=== PATIENT | female | born 1995 | race African-American/Black ===

== ENCOUNTER 2022-07-24 17:41 | Emergency (ER) | payer OTHER, SELFPAY ==
[2022-07-24 18:03] VITALS: BP 124/87; PULSE 94; RESP 16; TEMP 36.5; O2SAT 100
--- NOTE | 2022-07-24 18:41 | ED.URI ---
HPI - URI/Sore Throat General Chief Complaint: Upper Respiratory Infection Stated Complaint: ear pain, congestion, sore throat Time Seen by Provider: 07/24/22 18:41 Source: patient and RN notes reviewed Mode of arrival: ambulatory Limitations: no limitations History of Present Illness HPI Narrative: 27-year-old female presented for complaint of sinus pressure, congestion and nonproductive cough for 3 days. Endorses her sore throat that she had at onset is better, continues to have ear pain and headache. She denies sick contacts. She has been taking DayQuil, Robitussin and Mucinex for symptoms. She denies shortness of breath, nausea, vomiting, fevers or chills. MD elicited complaint: cough Related Data Home Medications Medication Instructions Recorded Confirmed No Home Medications 07/24/22 07/24/22 Allergies Allergy/AdvReac Type Severity Reaction Status Date / Time No Known Allergies Allergy Unverified 07/24/22 18:08 Review of Systems Review of Systems: CONSTITUTIONAL: denies malaise, chills, sweats, fever EYES: Denies visual changes, redness, or discharge ENT: Reports rhinorrhea, congestion, sinus pain, otalgia CARDIOVASCULAR: Denies chest pain, palpitations, edema RESPIRATORY: Reports cough, post nasal drainage. Denies dyspnea MUSCULOSKELETAL: denies myalgia Exam Narrative: GENERAL: well-appearing, nontoxic no acute distress. EYES: conjunctivae clear ENT: Mucous membranes moist. TM pearly amezcua with dull light reflex bilaterally; no tragal tenderness. Oropharynx erythematous without lesions or exudate, no drooling, no hoarseness, no trismus, uvula midline. CHEST: Clear to auscultation, breath sounds equal. No wheezing, rhonchi, rales, or stridor. HEART: Regular rate and rhythm. No murmur heard. SKIN: Warm, dry, no rash. NEURO: Alert and oriented x3. PSYCH: Normal mood and affect Course Course Emergency Course: Patient is aware of diagnosis, understands and agrees to treatment plan. Anticipatory guidance given. Patient agrees to follow-up as directed and is aware of reasons to seek care at the emergency department. Portions of this record may have been created with voice recognition software Level of Care: Express Care Visit Vital Signs Vital signs: Vital Signs Temperature 97.7 F 07/24/22 18:03 Pulse Rate 94 07/24/22 18:03 Respiratory Rate 16 07/24/22 18:03 Blood Pressure 124/87 07/24/22 18:03 Pulse Oximetry 100 07/24/22 18:03 Temperature 97.7 F 07/24/22 18:03 Pulse Rate 94 07/24/22 18:03 Respiratory Rate 16 07/24/22 18:03 Blood Pressure 124/87 07/24/22 18:03 Pulse Oximetry 100 07/24/22 18:03 reviewed MDM - URI/Sore Throat MDM Narrative Medical decision making narrative: Negative covid reviewed with pt. Advised supportive measures for URI and signs/symptoms to go to the ER. Pt is appropriate for outpt treatment and f/u. Differential Diagnosis Differential diagnosis: Likely upper respiratory infection, sinusitis and viral infection Lab Data Labs: Lab Results 07/24/22 Range/Units 18:18 POC SARS CoV-2 Ag Negative (Negative) Discharge Plan Discharge Clinical Impression: Upper respiratory infection Patient Disposition: Home, Self-Care Condition: Stable Instructions: Upper Respiratory Infection (ED) Additional Instructions: Recommend Flonase spray or Afrin (for 3 days) and Zyrtec (or Claritin/Yessica) over the counter Cough syrup may cause drowsiness; avoid driving or take it at night time. Tylenol 1000mg every 8 hours as needed for pain Symptomatic treatment includes: rest, fluids, and increase humidity of the air at home. Follow up with your primary care provider as needed in 1 week Go to the ER for worsening symptoms or concerns Prescriptions: No Action No Home Medications Follow-up/Referrals: UNKNOWN,DOCTOR [Primary Care Provider] - Time of Disposition: 18:49
== END 2022-07-24 18:53 | disposition home or self-care (01) ==
PROVIDERS: Emergency Provider Nurse Practitioner Family
DX: J06.9 Acute upper respiratory infection, unspecified (principal); Z20.822 Contact with and (suspected) exposure to COVID-19
CPT/HCPCS: 87426; 99203; C9803; G0463

== ENCOUNTER 2023-05-21 17:38 | Emergency (ER) | payer OTHER, SELFPAY ==
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
[2023-05-21 17:42] VITALS: BP 132/67; PULSE 96; RESP 16; TEMP 36.4; O2SAT 100
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
[2023-05-21] MEDS: ACETAMINOPHEN 500 MG TABLET 1000 MG PO (18:16)
[2023-05-21] MEDS: CYCLOBENZAPRINE HCL 10 MG TABLET PO (18:16)
[2023-05-21] MEDS: IBUPROFEN 600 MG TABLET PO (18:16)
== END 2023-05-21 19:31 | disposition home or self-care (01) ==
PROVIDERS: Emergency Provider Physician Assistant
DX: M62.830 Muscle spasm of back (principal); Z79.1 Long term (current) use of non-steroidal anti-inflammatories (NSAID); V43.53XA Car driver injured in collision with pick-up truck in traffic accident, initial encounter; Y92.411 Interstate highway as the place of occurrence of the external cause
CPT/HCPCS: 70450; 81025; 99284; A9270

== ENCOUNTER 2025-05-29 23:45 | Emergency (ER) | payer BC, SELFPAY ==
--- NOTE | ~2025-05-29 | XR_ITS ---
CHEST RADIOGRAPH CLINICAL HISTORY: sob . COMPARISON: None available TECHNIQUE: Single portable view of the chest. FINDINGS The cardiomediastinal silhouette is unremarkable. The lungs are clear. IMPRESSION: No focal infiltrate or effusion. Reviewed, dictated and finalized at location A.
--- OUTSIDE RECORDS SUMMARY | 2025-05-29 23:47 | XMS_ITS | Encounter Summary ---
Author Organization [facility] Healthcare Address [address] [place] [address] Care Team Providers Care Shot Polisher And Inspector Name Role Phone No, Physician Unavailable Mylene Hanna DO Primary Care Provider + Encounter Details Date Type Department Care Team (Late st Contact Info) Description 04/30/2025 Results Follow-Up [facility] [address] [facility] [address] [place] [id number] Luz Vivar MD [facility] [facility] [address] [place] [facility] [address] [place], [place] [id number] Group B streptococcal culture Vaginal/Rectal Social History Tobacco Use Types Packs/Day Years Used Date Smoking Tobacco: Never [facility] [employer] Answer Date Recorded In the past 12 months has [employer] electric, gas, oil, or water company threatened to shut off services in your home? No 04/28/2025 Social Connection and Isolat ion Panel [NHANES] Answer Date Recorded In a typical week, how many times do you talk on the phone with family, friends, or neighbors? More than three times a week 04/28/2025 How often do you get togethe r with friends or relatives? Three times a week 04/28/2025 How often do you attend chur ch or amish services? Never 04/28/2025 Do you belong to any clubs o r organizations such as muslim groups, unions, fraternal or athletic groups, or school groups? No 04/28/2025 How often do you attend meet ings of the clubs or organizations you belong to? Never 04/28/2025 Are you , , di vorced, , never , or living with a partner? 04/28/2025 Overall Financial Resource Strain (CARDIA) Answe r Date Recorded How hard is it for you to pa y for the very basics like food, housing, medical care, and heating? Not hard at all 04/28/2025 Hunger Vital Sign Answer Date Recorded Within the past 12 months, y ou worried that your food would run out before you got the money to buy more. Never true 04/28/20 25 Within the past 12 months, t he food you bought just didn't last and you didn't have money to get more. Never true 04/28/2025 PRAPARE - Transportation Answer Date Re corded In the past 12 months, has l ack of transportation kept you from medical appointments or from getting medications? No 01/2025 In the past 12 months, has l ack of transportation kept you from meetings, work, or from getting things needed for daily living? No 04/28/2025 Saline Depression Scale Answer Date Recorded Saline Depression Scale Total 2 03/30/2025 The thought of harming myself has occurred to me . Never 03/30/2025 Housing Stability Vital Sign Answer Karri e Recorded In the last 12 months, was t here a time when you were not able to pay the mortgage or rent on time? No 04/28/2025 In the past 12 months, how m any times have you moved where you were living? 0 04/28/2025 At any time in the past 12 m [facility], were you homeless or living in a skilled nursing (including now)? No 04/28/2025 Personal Safety Answer Date Recorded Have you ever been in or are you currently in a harmful physical or emotional relationship or is someone making you feel afraid or unsafe? 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
--- OUTSIDE RECORDS SUMMARY | 2025-05-29 23:47 | XMS_ITS | Referral Summary ---
Author Organization [address] Address [address] [place] [phone] Care Team Providers Care Segmental Wall Installer Name Role Phone No, Physician Unavailable Mylene Hanna DO Primary Care Provider + Encounters Date Type Department Care Team Description 05/26/2025 2:01 PM CDT - 05/29/2025 7:05 PM CDT Hospital Encounter [address] [phone] Marielle Wakefield MD Normal labor (Primary Dx); Obesity in ; care insufficient, unspecified trimester; Maternal varicella, non-immune Discharge Disposition: Discharge to home or self care 05/27/2025 10:03 AM CDT Anesthesia Event [address] [phone] Priti Girard MD Spreen, Nancy J., CRNA 05/18/2025 10:00 AM CDT Office Visit [address] [place] [phone] Stefanie Bai, DRAFTER SEISMOGRAPH WEOB: pt of [place] (Primary Dx) 05/11/2025 10:30 AM CDT Office Visit [address] [place] [phone] Luz Vivar MD WEOB: pt of [place] (Primary Dx); WEOB: BMI 34 at IOB; 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; WEOB: Varicella nonimmune 04/30/2025 Results Follow-Up [address] [phone] Luz Vivar MD Group B streptococcal culture Vaginal/Rectal 04/28/2025 9:45 AM CDT Ancillary Procedure [address] [place] [address] WEOB: BMI 34 at IOB 04/27/2025 1:18 PM CDT - 04/28/2025 8:19 PM CDT Hospital Encounter [address] [phone] Luz Vivar MD Threatened labor, third trimester (Primary Dx) Discharge Disposition: Discharge to home or self care 04/27/2025 4:50 PM CDT Ancillary Procedure [address] [phone] 04/27/2025 11:27 AM CDT - 04/27/2025 11:59 PM CDT Hospital Encounter [address] [address] WEOB: pt of [place] Discharge Disposition: Discharge to home or self care 04/27/2025 10:30 AM CDT Office Visit [address] [phone] Luz Vivar MD WEOB: pt of [place] (Primary Dx); WEOB: BMI 34 at IOB; 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; WEOB: Varicella nonimmune 04/19/2025 4:39 PM CDT - 04/19/2025 6:00 PM CDT Hospital Encounter [address] [phone] Charisse Eisenberg MD Discharge Disposition: Discharge to home or self care 04/[facility] [address] [place] [place] [phone] Luz Vivar MD 04/14/2025 10:00 AM CDT [facility] [address] [place] [place] [phone] Stefanie Bai, DRAFTER SEISMOGRAPH WEOB: pt of [place] (Primary Dx) 04/03/2025 Results Follow-Up [facility] [address] [place] [place] [phone] Luz Vivar MD Ob Follow Up 04/01/2025 2:30 PM CDT Ancillary Procedure [facility] at [address] [phone] Obesity in 03/30/2025 4:00 PM CDT [facility] [address] [place] [place] [phone] Luz Vivar MD WEOB: pt of [place] (Primary Dx); WEOB: BMI 34 at IOB; 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; WEOB: Varicella nonimmune 03/27/2025 Telephone [facility] [address] [place] [phone] Kaela Oneal RN 03/25/2025 Orders Only [facility] [address] [place] [phone] Luz Vivar MD Obesity in (Primary Dx) 03/25/2025 Orders Only [facility] [address] [place] [phone] Luz Vivar MD 03/18/2025 Results Follow-Up [facility] [address] [place] [phone] Stefanie Bai, DRAFTER SEISMOGRAPH Urine culture Urine, clean voided 03/16/2025 11:45 AM CDT - 03/16/2025 11:59 PM CDT Hospital Encounter [facility] [address] [place] [address] Gross hematuria; care, first in third trimester Discharge Disposition: Discharge to home or self care 03/16/2025 10:30 AM CDT Office Visit [facility] [address] [phone] Stefanie Bai, DRAFTER SEISMOGRAPH WEOB: pt of [place] (Primary Dx); 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; WEOB: Varicella nonimmune; WEOB: BMI 34 at IOB; Gross hematuria; care, first in third trimester from Last 3 Months Allergies No known active allergies Medications 35-[id number] 6-dha 30 mg iron-1mg -200 mg capsule Take by mouth daily Active acetaminophen 500 mg capsuleIndicati ons:Pain Take 2 capsules (1,000 mg total) by mouth every 6 (six) hours 6 tablet 5 Active docusate sodium (COLACE) 100 mg capsuleIndicati ons:constipatio n,Stool Softener Take 1 capsule (100 mg total) by mouth 2 (two) times a day 20 capsule 5 Active ibuprofen (ADVIL,MOTRIN) 600 mg tabletIndicatio ns:Cramps Take 1 tablet (600 mg total) by mouth every 6 (six) hours as needed for pain 30 tablet 5 Active polyethylene glycol (MIRALAX) 17 gram/dose bulk powderIndicatio ns:constipation Take 17 g by mouth daily 510 g 5 Active aspirin 81 mg enteric coated tablet Take 1 tablet (81 mg total) by mouth daily 30 tablet 11 4 05/29/20 25 Discontinu ed(Stop Taking at Discharge) Active Problems Problem Noted Date Diagnosed Date (spontaneous vaginal delivery) 05/29/2025 Normal labor 05/27/2025 care following vaginal delivery 05/27 Overview (05/29/2025): # ID: Afebrile. No signs/symptoms of infection. #VZV NI: Recc PP varivax # Heme: QBL 243 mL. Hemodynamically stable. # CV/Pulm: Vital signs stable, within normal limits. # GI/: Tolerating PO. Voiding spontaneously. # Pain: Controlled with above regimen. # MOC: Undecided s/p counseling. # MOF: . Urine drug screen not indicated. Patient informed of results: N/A. # Post DVT prophylaxis: The patient has the following MAJOR risk factors none and the following MINOR risk factors BMI 30-39. SCDs ordered for VTE prophylaxis. # Disposition: Follow up task not sent. Continue routine care. Supervision of wit h history of pre-term labor, unspecified trimester 05/26/2025 Overview (05/26/2025): Anabelle Grijalva is a 30 y.o. female at 38w4d who is dated by L=1 and is being admitted for labor. Admit to L&D: Labs: CBC and T&S pending. Labor augmentation with AROM and oxytocin . FWB: Continuous monitoring. tracing category I. ID: 3rd trimester HIV (>28 wga) negative on 04/27. GBS negative on 04/27. RPR on admission: pending. History of genital HSV or HSV 1/2 seropositivity: No. Membrane Status: intact. Indications for UDS: none. Verbal consent obtained for UDS: Not indicated. MOF: Plans to breastfeed. Urine drug screen not indicated. Patient informed of results: N/A. MOC: Undecided on contraception after counseling. Pain management: Desires epidural. Post DVT prophylaxis: The patient has the following MAJOR risk factors none and the following MINOR risk factors BMI 30-39. SCDs will be ordered for VTE prophylaxis . 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 Peds for del. Threatened labor, third trimester 2024 WEOB: BMI 34 at IOB 03/16/2025 Overview (03/30/2025): BMI: 34 at IOB S/p counseling. Plan [x] A1C/GTT wnl [x] Specialized anatomy ultrasound - wnl [] Serial growth ultrasounds q4 weeks starting at 24 weeks - ordered [x] Anesthesia consult in third trimester if BMI >/= 60 - not indicated [x] Weekly testing: not indicated 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 025 Overview (04/27/2025): FOP testing ordered 12/16/24 (Scooter Grijalva, [birth year]) - Partner also a carrier. 01/15/25: Genetic counselor referral completed, declined amniocentesis/ intervention. Plan: - Routine care. Alert peds at delivery. WEOB: Varicella nonimmune 11/24/2024 Overview (12/16/2024): For varivax. WEOB: pt of [place] 11/24/2024 Overview (05/11/2025): 1st Trimester: [x] Dating Criteria: L=1 (US 10/27/24 with HAI 06/05/25) [x] Labs: Lab Results Component Value Date ABORH O Positive 11/17/2024 IDCOOMB Negative 11/17/2024 [id number] Nonreactive 11/17/2024 LABRPR Nonreactive 11/17/2024 RUBELIGG Reactive 11/17/2024 HEPBSAG Nonreactive 11/17/2024 [x] Hgb electrophoresis: normal pattern [x] Pap: NILM (10/2024) [x] Urine Culture CIG [x] Aneuploidy screening: NIPT low risk [x] Carrier testing: SMA carrier (see separate problem) [x] ASA at 12 weeks (if indicated) - ordered 2nd Trimester: [x] Anatomy ultrasound (01/21/25): normal anatomy, normal growth [x] Placenta: anterior [x] CBC/1hr GTT/HIV/RPR at 24-28wks: Lab Results Component Value Date [id number] 154 (H) 02/16/2025 [id number] Nonreactive 02/16/2025 LABRPR Nonreactive 02/16/2025 [x] Rhogam (if Rh neg): not indicated [x] Childbirth classes discussed 3rd Trimester: [x] GBS: neg Counseling: [x] Flu Shot (Jul-January) given 10/20 [x] RSV Shot (32-36wks) - N/A [x] Tdap (27-36wks) 03/16 [x] Method of delivery: Anticipate vaginal delivery Immunizations Immunization Administration Dates Next Due Influenza, Trivalent, Preser vative Free, Intramuscular 10/20/2024 MMR 05/29/2025(Deferred: No longer n eeded) Tdap 03/16/2025 Varicella 05/29/2025 Social History Tobacco Use Types Packs/Day Years Used Date Smoking Tobacco: Never Tobacco Cessation:Counseling Given: Not Answered [facility] Utilities Answer Date Recorded In the past 12 months has e maufait, gas, oil, or water company threatened to shut off services in your home? No 04/28/2025 Social Connection and Isolat ion Panel [NHANES] Answer Date Recorded In a typical week, how many times do you talk on the phone with family, friends, or neighbors? More than three times a week 05/28/2025 How often do you get togethe r with friends or relatives? Three times a week 05/28/2025 How often do you attend chur ch or rastafari services? Never 05/28/2025 Do you belong to any clubs o r organizations such as scientologist groups, unions, fraternal or athletic groups, or school groups? No 05/28/2025 How often do you attend meet ings of the clubs or organizations you belong to? Never 05/28/2025 Are you , , di vorced, , never , or living with a partner? 05/28/2025 Overall Financial Resource Strain (CARDIA) Answe r Date Recorded How hard is it for you to pa y for the very basics like food, housing, medical care, and heating? Not very hard 05/28/2025 Hunger Vital Sign Answer Date Recorded Within the past 12 months, y ou worried that your food would run out before you got the money to buy more. Never true 05/28/20 25 Within the past 12 months, t he food you bought just didn't last and you didn't have money to get more. Never true 05/28/2025 PRAPARE - Transportation Answer Date Re corded In the past 12 months, has l ack of transportation kept you from medical appointments or from getting medications? No 01/2025 In the past 12 months, has l ack of transportation kept you from meetings, work, or from getting things needed for daily living? No 05/28/2025 Conner Depression Scale Answer Date Recorded Conner Depression Scale Total 2 03/30/2025 The thought of harming myself has occurred to me . Never 03/30/2025 Housing Stability Vital Sign Answer Karri e Recorded In the last 12 months, was t here a time when you were not able to pay the mortgage or rent on time? No 05/28/2025 In the past 12 months, how m any times have you moved where you were living? 0 05/28/2025 At any time in the past 12 m [facility], were you homeless or living in a fci (including now)? No 05/28/2025 Personal Safety Answer Date Recorded Have you ever been in or are you currently in a harmful physical or emotional relationship or is someone making you feel afraid or unsafe? Denies 05/26/2025 Comments No Sex and Gender Information Value Date Recorded Sex Assigned at Not on file Legal Sex Female 9:56 AM REAL ESTATE MANAGEMENT SPECIALIST Gender Identity Not on file Sexual Orientation Not on file Last Filed Vital Signs Vital Sign Reading Time Taken Comments Blood Pressure 130/64 05/29/2025 7:41 AM CDT Pulse 84 05/29/2025 7:41 AM CDT Temperature 36.4 C (97.5 F) 05/29/2025 7:41 AM CDT Respiratory Rate 17 05/29/2025 7:41 AM CDT Oxygen Saturation 100% 05/29/2025 7:41 AM CDT Inhaled Oxygen Concentration - - Weight 99.3 kg (219 lb) 05/26/2025 2:11 PM CDT Height 160 cm (5' 3) 05/26/2025 2:11 PM CDT Body Mass Index 38.79 05/26/2025 2:11 PM CDT Plan of Treatment Not on file Procedures Procedure Name Priority Date/Time Associated Diagnosis Comments POCT GLUCOSE DEVICE Routine 05/28/2025 6 :39 AM CDT WV AN PROCEDURE PLACEHOLDER Routine 05/27/2025 10:17 AM CDT EGFR STAT 05/26/2025 5:51 PM CDT DIFFERENTIAL AUTO STAT 05/26/2025 5:5 1 PM CDT COMPREHENSIVE METABOLIC PANEL STAT 05/26/2025 5:51 PM CDT CBC WITH AUTO DIFFERENTIAL STAT 05/26/2025 5:51 PM CDT TYPE AND SCREEN STAT 05/26/2025 5:51 PM CDT RPR STAT 05/26/2025 5:51 PM CDT POCT URINALYSIS (CLINITEK) Routine 05/26/2025 2:10 PM CDT US OB FOLLOW UP Schedule Routine, Read Routine (OP Routine) 04/28/2025 10:05 AM CDT WEOB: BMI 34 at IOB URINE CULTURE Routine 04/27/2025 10:38 PM CDT B CHECK SAMPLE STAT 04/27/2025 10:26 PM CDT URINALYSIS AND REFLEX TO MICROSCOPIC AND CULTURE Routine 04/27/2025 8:55 PM CDT TYPE AND SCREEN Timed 04/27/2025 8:44 PM CDT CBC WITHOUT DIFFERENTIAL Routine 04/27/2025 8:44 PM CDT RPR Timed 04/27/2025 8:44 PM CDT HIV 1/2 ANTIBODY PLUS P24 ANTIGEN Timed 04/27/2025 8:44 PM CDT POCT URINALYSIS (CLINITEK) Routine 04/27/2025 1:39 PM CDT GROUP B STREPTOCOCCUS CULTURE Routine 04/27/2025 11:27 AM CDT WEOB: pt of [place] POCT URINALYSIS (CLINITEK) Routine 04/19/2025 5:11 PM CDT OB FOLLOW UP Schedule Routine, Read Routine (OP Routine) 04/01/2025 2:51 PM CDT Obesity in URINE CULTURE Routine 03/16/2025 2:20 PM CDT Gross hematuria care, first in third trimester HEPATITIS C ANTIBODY Routine 11/17/2024 3:58 PM REAL ESTATE MANAGEMENT SPECIALIST care in first trimester PAP WITH REFLEX TO HIGH RISK HPV Routine 11/17/2024 9:31 AM REAL ESTATE MANAGEMENT SPECIALIST Encounter for Papanicolaou smear for cervical cancer screening from Last 3 Months or Most Recently Relevant to Health Maintenance Results * POCT glucose (05/28/2025 6:39 AM CDT) Glucose, POC 82 70 - 199 mg/dL Blood 05/28/2025 6:39 AM CDT 05/28/2025 6:39 AM CDT us Marielle Wakefield MD LAB POCT ORDERABLES - DEVICE Final Result [facility] Department [place] [address] * W[place] AN PROCEDURE PLACEHOLDER (05/27/2025 10:17 AM CDT) Narrative Priti Girard MD - 05/27/2025 10:17 AM CDT Priti Girard MD 05/27/2025 10:18 AM Epidural Block Patient location: L&D Start time: 05/27/2025 10:09 AM End time: 05/27/2025 10:20 AM Reason for block: labor analgesia Staff: Supervising provider: Priti Girard MD Placed by: TUNG NUT GROWER: Candy Holly CRNA Procedure prep: Preprocedure checklist: patient identified, procedure contraindications assessed, procedure consent obtained, surgical consent, IV checked, risks, benefits and alternatives discussed, monitors and equipment checked and timeout performed Patient Position: sitting Procedure performed while patient: awake Monitoring: oximetry and blood pressure Prep solution: chlorhexadine/alcohol PPE: provider hat/mask, sterile gloves and sterile drape Skin infiltrated with lidocaine 1%: yes Epidural: Approach: midline Imaging guidance used: no Location: L3-4 Number of attempts:2 Epidural needle: Injection technique: TAWANDA saline Needle type: Tuohy Needle gauge: 17 G Loss of resistance: 7 cm Catheter: Catheter type: multi-orifice. Catheter at skin depth: 12 cm Negative aspiration of blood: no Negative aspiration of CSF: no Test dose: negative Assessment: Sensory level - left: full eval pending Sensory level - right: full eval pending Events: patient tolerated procedure well with no complications Priti Girard MD ANESTHESIA ORDERABLES Final Result * eGFR (05/26/2025 5:51 PM CDT) eGFR >90 >=60 mL/min/1. 73 m2 Comment: Interpretive Data Reference Interval Normal >/= 90 mL/min/1.73m2 Mildly decreased* 60 - 89 mL/min/1.73m2 Mildly to moderately decreased 45 - 59 mL/min/1.73m2 Moderately to severely decreased 30 - 44 mL/min/1.73m2 Severely decreased 15 - 29 mL/min/1.73m2 Kidney Failure < 15 mL/min/1.73m2 *Relative to young adult level Estimated glomerular filtration rate is determined by the 2020 CKD-EPI equation recommended by the National Kidney Foundation (A Unifying Approach to GFR Estimation: Recommendations of the NKF-ASK Task Force on Reassessing the Inclusion of Race in Diagnosing Kidney Disease, JASN 2020). The CKD-EPI equation should not be used for patients with unstable renal function and has not been validated in children and those over 70. Current interpretive data was last reviewed 2021. Blood 05/26/2025 5:51 PM CDT 05/26/2025 5:59 PM CDT Nickie Leyva NP LAB BLOOD ORDERABL ES Final Result [facility] Department [place] [address] * Differential, auto (05/26/2025 5:51 PM CDT) Pathologist [facility] Neutrophil abs 5.42 1.50 - 6.50 K/cumm Imm gran abs 0.04 0.00 - 0.10 K/cumm [facility] Lymphocyte abs 1.07 0.80 - 3.30 K/cumm [facility] Monocyte abs 0.51 0.20 - 0.80 K/cumm [facility] Eosinophil abs 0.05 0.00 - 0.50 K/cumm [facility] Basophil abs 0.02 0.00 - 0.10 K/cumm [facility] Neutrophil pct 76.2 % [facility] Comment: Interpretive Data Percent cell count reference ranges are not reported, since discordance with absolute values may lead to misinterpretation of CBC data. Current Interpretive Data was last revised on 2018. Imm gran pct 0.6 % [facility] Comment: Interpretive Data Percent cell count reference ranges are not reported, since discordance with absolute values may lead to misinterpretation of CBC data. Current Interpretive Data was last revised on 2018. Lymphocyte pct 15.0 % [facility] Comment: Interpretive Data Percent cell count reference ranges are not reported, since discordance with absolute values may lead to misinterpretation of CBC data. Current Interpretive Data was last revised on 2018. Monocyte pct 7.2 % [facility] Comment: Interpretive Data Percent cell count reference ranges are not reported, since discordance with absolute values may lead to misinterpretation of CBC data. Current Interpretive Data was last revised on 2018. Eosinophil pct 0.7 % [facility] Comment: Interpretive Data Percent cell count reference ranges are not reported, since discordance with absolute values may lead to misinterpretation of CBC data. Current Interpretive Data was last revised on 2018. Basophil pct 0.3 % [facility] Comment: Interpretive Data Percent cell count reference ranges are not reported, since discordance with absolute values may lead to misinterpretation of CBC data. Current Interpretive Data was last revised on 2018. Blood 05/26/2025 5:51 PM CDT 05/26/2025 5:59 PM CDT Nickie Leyva NP LAB BLOOD ORDERABL ES Final Result [facility] Department [place] [address] * CBC with auto differential (05/26/2025 5:51 PM CDT) WBC 7.11 3.80 - 9.90 K/cumm Hgb 13.1 11.9 - 15.5 g/dL [facility] Hct 39.3 35.6 - 45.5 % [facility] Plt 191 150 - 400 K/cumm [facility] MPV 10.5 9.1 - 12.3 fL [facility] RBC 4.72 3.90 - 5.20 M/cumm [facility] MCV 83.3 81.3 - 96.4 fL [facility] MCH 27.8 27.1 - 33.3 pg [facility] MCHC 33.3 32.3 - 35.7 g/dL [facility] RDW CV 14.7 11.1 - 14.9 % [facility] RDW SD 44.6 35.7 - 48.1 fL [facility] NRBC abs 0.00 0.00 - 0.01 K/cumm [facility] Blood 05/26/2025 5:51 PM CDT 05/26/2025 5:59 PM CDT Nickie Leyva NP LAB BLOOD ORDERABL ES Final Result Performing Organization Address City/[facility]/ZIP Co de Phone Number [facility] [place] [address] * RPR Blood (05/26/2025 5:51 PM CDT) [facility] RPR Nonreactive Nonreactive Blood 05/26/2025 5:51 PM CDT 05/26/2025 5:59 PM CDT Nickie Leyva NP LAB MICROBIOLOGY - GENERAL ORDERABLES Final Result Performing Organization Address City/State/[facility] [place] [address] * Type and screen (05/26/2025 5:51 PM CDT) [facility] Juanjo, indirect Negative ABO Rh O Positive [facility] Blood 05/26/2025 5:51 PM CDT 05/26/2025 6:18 PM CDT Narrative [facility] - 05/26/2025 7:11 PM CDT Has the patient had Daratumumab or Isatuximab in the past 6 months?->Unknown Nickie Leyva NP LAB BLOOD BANK CARLOS A T ORDERABLES Final Result Performing Organization Address City/[facility] Co de Phone Number [facility] [place] [address] * (ABNORMAL) Comprehensive metabolic panel (05/26/2025 5:51 PM CDT) [facility] Sodium 131(L) 135 - 145 mmol/L Potassium, pl 3.7 3.3 - 4.9 mmol/L [facility] Chloride 102 97 - 110 mmol/L [facility] CO2 22 22 - 32 mmol/L [facility] Anion gap 7 2 - 15 mmol/L [facility] BUN 9 6 - 25 mg/dL [facility] Creatinine 0.62 0.60 - 1.10 mg/dL [facility] Glucose 113 70 - 199 mg/dL [facility] Comment: Interpretive Data Fasting glucose >/= 126 mg/dl is diagnostic for diabetes. Fasting is defined as no caloric intake for at least 8 hours. Fasting glucose between 100 mg/dl to 125 mg/dl is diagnostic of prediabetes. In a patient with classic symptoms of hyperglycemia or hyperglycemic crisis, a random glucose >/= 200 mg/dl is diagnostic for diabetes. In the absence of unequivocal hyperglycemia, results should be confirmed by repeat testing. The classification and Diagnosis of Diabetes Diabetes Care 2021; 46: S19-S40. Current interpretive data was last revised 2022. Calcium 9.6 8.5 - 10.3 mg/dL [facility] Bilirubin, total 0.2 0.1 - 1.2 mg/dL [facility] Protein, pl 6.6 6.5 - 8.5 g/dL [facility] Albumin 3.4(L) 3.5 - 5.0 g/dL [facility] Alk phos 239(H) 40 - 130 Units/L [facility] ALT 9 7 - 45 Units/L [facility] AST 18 10 - 45 Units/L [facility] Blood 05/26/2025 5:51 PM CDT 05/26/2025 5:59 PM CDT Nickie Leyva NP LAB BLOOD ORDERABL ES Final Result [facility] Department [place] [address] * (ABNORMAL) POCT urinalysis (Clinitek) (05/26/2025 2:10 PM CDT) Color, ur, POC Yellow Yellow Clarity, UA, POC Clear Clear [facility] Glucose, ur, POC Negative Negative [facility] Bilirubin, ur, POC Negative Negative [facility] Ketones, ur, POC Negative Negative [facility] Specific gravity, ur, POC 1.015 1.010 - 1.025 [facility] Blood, ur, POC Trace(A) Negative [facility] pH, ur, POC 7.0 [facility] Comment: Interpretive Data Urine pH is affected by diet, medications, systemic acid-base disturbances, and renal tubular function. pH may affect urinary stone formation. For example, urine pH below 6.0 may help reduce the tendency for calcium phosphate stones and pH greater than 6.0 may reduce the tendency for uric acid stone formation. Source: [facility] [employer]. Last Revised Date: 12-06-2017 Protein, ur, POC Negative Negative [facility] Urobilinogen, ur, POC 0.2 mg/dL mg/dL [facility] Nitrites, ur, POC Negative Negative [facility] Leukocyte esterase, ur, POC Trace(A) Negative [facility] Urine 05/26/2025 2:10 PM CDT 05/26/2025 2:10 PM CDT us Marielle Wakefield MD LAB POCT ORDERABLES - DEVICE Final Result [facility] Department [place] [address] * US Ob Follow Up (04/28/2025 10:05 AM CDT) Fetus# Fetus1 [facility] Estimated Weight 2,481 g&grams [facility] Placenta Details anterior, Previa-no, no placental masses [facility] Presentation Vertex [facility] Anatomical Region Laterality Modality Abdomen N/A Ultrasound 04/28/2025 10:0 8 AM CDT Impressions 04/28/2025 10:45 AM CDT IUP - 34w 4d - interval growth is normal - size is AGA Narrative Procedure Note Selvin Mccain MD - 04/28/2025 IMPRESSION: IUP - 34w 4d - interval growth is normal - size is AGA us Luz Vivar MD IMG OB US PROCEDURES Nannette l Result * Urine culture Urine, clean voided (04/27/2025 10:38 PM CDT) Report Final Report: Less than 100,000 colonies/mL (clinically insignificant growth based on current clinical standards) Organism (CLINICALLY INSIGNIFICANT GROWTH [facility] Urine, clean voided 04/27/2025 10:38 PM CDT 04/27/2025 10:45 PM CDT Narrative [facility] - 04/29/2025 11:00 AM CDT Indications for Culture:-> patient Testing performed by [facility] Microbiology Laboratory ([phone]) us Nohemi Valentin MD LAB MICROBIOLOGY - GENERAL ORDERABLES Final Result [facility] Department [place] [address] * Check Sample (04/27/2025 10:26 PM CDT) ABO Rh O Positive [facility] HCLL OTHER 04/27/2025 10:2 6 PM CDT 04/27/2025 10:52 PM CDT Luz Vivar MD LAB BLOOD ORDERABLES Nannette l Result Performing Organization Address City/[facility]/ZIP Co de Phone Number [facility] Department [place] [address] [facility] * (ABNORMAL) Urinalysis reflex to microscopic and culture Urine, clean voided (04/27/2025 8:55 PM CDT) Color, ur Straw Yellow Clarity, ur Clear Clear [facility] Specific gravity, ur 1.015 1.003 - 1.030 [facility] pH, urine 6.5 [facility] Comment: Interpretive Data U rine pH is affected by diet, medications, systemic acid-base disturbances, and renal tubular function. pH may affect urinary stone formation. For example, urine pH below 6.0 may help reduce the tendency for calcium phosphate stones and pH greater than 6.0 may reduce the tendency for uric acid stone formation. Source: [facility] [employer] Current Interpretive Data was last revised on 2017 Protein, ur ql Negative Negative [facility] Glucose, ur ql Negative Negative [facility] Ketones, ur 2+(A) Negative [facility] Bilirubin, ur Negative Negative [facility] Blood, ur Negative Negative [facility] Urobilinogen, ur <2.0 <2.0 mg/dL [facility] Nitrite, ur Negative Negative [facility] Leukocyte esterase, ur Negative Negative [facility] Urine, clean voided 04/27/2025 8:55 PM CDT 04/27/2025 9:08 PM CDT Luz Vivar MD LAB MICROBIOLOGY - GENERA L ORDERABLES Final Result Performing Organization Address City/[facility] Co de Phone Number [facility] [place] [address] * HIV 1/2 Antibody plus p24 Antigen Blood (04/27/2025 8:44 PM CDT) Pathologist [facility] [place] HIV 1/2 ab + p24 ag Nonreactive Nonreactive Comment:Nonreactive for HIV- 1 antigen and HIV-1/HIV-2 antibodies. No laboratory evidence of HIV infection. If acute HIV infection is suspected, consider testing for HIV-1 RNA. Current interpretive data was last revised on 22. Blood 04/27/2025 8:44 PM CDT 04/27/2025 8:55 PM CDT Luz Vivar MD LAB MICROBIOLOGY - GENERA L ORDERABLES Final Result Performing Organization Address City/[facility]/ZIP Co de Phone Number [facility] Department [place] [address] * RPR Blood (04/27/2025 8:44 PM CDT) RPR Nonreactive Nonreactive Blood 04/27/2025 8:44 PM CDT 04/27/2025 8:55 PM CDT Luz Vivar MD LAB MICROBIOLOGY - GENERA L ORDERABLES Final Result Performing Organization Address City/[facility]/ZIP Co de Phone Number [facility] Department [place] [address] * CBC without differential (04/27/2025 8:44 PM CDT) WBC 8.59 3.80 - 9.90 K/cumm Hgb 12.4 11.9 - 15.5 g/dL [facility] Hct 35.6 35.6 - 45.5 % [facility] Plt 179 150 - 400 K/cumm [facility] MPV 10.3 9.1 - 12.3 fL [facility] RBC 4.33 3.90 - 5.20 M/cumm [facility] MCV 82.2 81.3 - 96.4 fL [facility] MCH 28.6 27.1 - 33.3 pg [facility] MCHC 34.8 32.3 - 35.7 g/dL [facility] RDW CV 13.8 11.1 - 14.9 % [facility] RDW SD 41.1 35.7 - 48.1 fL [facility] NRBC abs 0.00 0.00 - 0.01 K/cumm [facility] Blood 04/27/2025 8:44 PM CDT 04/27/2025 8:55 PM CDT Uma Carrington NP LAB BLOOD ORDERABLES Final Result [facility] Department [place] [address] * Type and screen (04/27/2025 8:44 PM CDT) Pathologist [facility] [place] Juanjo, indirect Negative ABO Rh O Positive [facility] Blood 04/27/2025 8:44 PM CDT 04/27/2025 9:15 PM CDT Narrative [facility] - 04/27/2025 11:04 PM CDT Has the patient had Daratumumab or Isatuximab in the past 6 months?->Unknown Luz Vivar MD LAB BLOOD BANK TEST ORDER MAY Final Result Performing Organization Address City/[facility]/ZIP Co de Phone Number [facility] Department [place] [address] * (ABNORMAL) POCT urinalysis (Clinitek) (04/27/2025 1:39 PM CDT) Color, ur, POC Yellow Yellow Clarity, UA, POC Clear Clear [facility] Glucose, ur, POC Negative Negative [facility] Bilirubin, ur, POC Negative Negative [facility] Ketones, ur, POC Negative Negative [facility] Specific gravity, ur, POC 1.010 1.010 - 1.025 [facility] Blood, ur, POC Trace(A) Negative [facility] pH, ur, POC 7.0 [facility] Comment: Interpretive Data Urine pH is affected by diet, medications, systemic acid-base disturbances, and renal tubular function. pH may affect urinary stone formation. For example, urine pH below 6.0 may help reduce the tendency for calcium phosphate stones and pH greater than 6.0 may reduce the tendency for uric acid stone formation. Source: [facility] [employer]. Last Revised Date: 12-06-2017 Protein, ur, POC Negative Negative [facility] Urobilinogen, ur, POC 0.2 mg/dL mg/dL [facility] Nitrites, ur, POC Negative Negative [facility] Leukocyte esterase, ur, POC 1+(A) Negative [facility] Urine 04/27/2025 1:39 PM CDT 04/27/2025 1:39 PM CDT Luz Vivar MD LAB POCT ORDERABLES - DEV ICE Final Result Performing Organization Address [facility]/ZIP Co de Phone Number [facility] Department [place] [address] * Group B streptococcal culture Vaginal/Rectal (04/27/2025 11:27 AM CDT) Report Final Report: Negative Vaginal/Rectal 04/27/2025 11 :27 AM CDT 04/27/2025 4:37 PM CDT Narrative [facility] - 04/30/2025 12:31 PM CDT Testing performed by [facility] Microbiology Laboratory ([phone]). us Luz Vivar MD LAB MICROBIOLOGY - GENERA L ORDERABLES Final Result [facility] Department [place] [address] * (ABNORMAL) POCT urinalysis (Clinitek) (04/19/2025 5:11 PM CDT) Color, ur, POC Yellow Yellow Clarity, UA, POC Clear Clear [facility] Glucose, ur, POC Negative Negative [facility] Bilirubin, ur, POC Negative Negative [facility] Ketones, ur, POC 3+(A) Negative [facility] Specific gravity, ur, POC 1.020 1.010 - 1.025 [facility] Blood, ur, POC Negative Negative [facility] pH, ur, POC 7.0 [facility] Comment: Interpretive Data Urine pH is affected by diet, medications, systemic acid-base disturbances, and renal tubular function. pH may affect urinary stone formation. For example, urine pH below 6.0 may help reduce the tendency for calcium phosphate stones and pH greater than 6.0 may reduce the tendency for uric acid stone formation. Source: [employer]. Last Revised Date: 12-06-2017 Protein, ur, POC Negative Negative [facility] Urobilinogen, ur, POC 0.2 mg/dL mg/dL [facility] Nitrites, ur, POC Negative Negative [facility] Leukocyte esterase, ur, POC 1+(A) Negative [facility] Urine 04/19/2025 5:11 PM CDT 04/19/2025 5:11 PM CDT us Charisse Eisenberg MD LAB POCT ORDERABLES - ANGEL CE Final Result Performing Organization Address City/[facility]/ZIP Co de Phone Number [facility] Department [place] [address] * US Ob Follow Up (04/01/2025 2:51 PM CDT) Fetus# Fetus1 VIEWPOINT Estimated Weight 1,765 g&grams VIEWPOINT Placenta Details anterior VIEWPOINT Presentation Vertex VIEWPOINT Anatomical Region Laterality Modality Abdomen N/A Ultrasound 04/01/2025 3:59 PM CDT Impressions 04/02/2025 3:00 PM CDT 30w 5d IUP for evaluation of growth AGA growth pattern, EFW 3 lb 14 oz, 62% Vertex presentation. FHR 150 bpm Normal [place], 15.7 cm. Narrative Procedure Note Luz Vivar MD - 04/02/2025 IMPRESSION: 30w 5d IUP for evaluation of growth AGA growth pattern, EFW 3 lb 14 oz, 62% Vertex presentation. FHR 150 bpm Normal [place], 15.7 cm. Luz Vivar MD IMG OB US PROCEDURES Nannette l Result * Urine culture Urine, clean voided (03/16/2025 2:20 PM CDT) Report Final Report: Less than 100,000 colonies/mL (clinically insignificant growth based on current clinical standards) Organism (CLINICALLY INSIGNIFICANT GROWTH [facility] Urine, clean voided 03/16/2025 2:20 PM CDT 03/16/2025 2:43 PM CDT Narrative [facility] - 03/17/2025 5:12 PM CDT Testing performed by [facility] Microbiology Laboratory ([phone]) us Stefanie Bai NP LAB MICROBIOLOGY - GENERAL O RDERABLES Final Result Performing Organization Address City/[facility]/ZIP Co de Phone Number [facility] Department [place] [address] * Hepatitis C antibody Blood (11/17/2024 3:58 PM REAL ESTATE MANAGEMENT SPECIALIST) Hep C Ab Nonreactive Nonreactive Comment:Antibodies to HCV no t detected. Does NOT exclude the possibility of recent exposure to HCV. Current interpretive data was last revised on 22 Blood 11/17/2024 3:58 PM REAL ESTATE MANAGEMENT SPECIALIST 11/17/2024 6:41 PM REAL ESTATE MANAGEMENT SPECIALIST us Stefanie Bai NP LAB MICROBIOLOGY - GENERAL O RDERABLES Final Result [facility] Department [place] [address] * Pap with reflex to High Risk HPV and Genotyping (Cytology Component) (11/17/2024 9:31 AM REAL ESTATE MANAGEMENT SPECIALIST) Thin prep (Pap test) 11/17/2024 9:31 AM REAL ESTATE MANAGEMENT SPECIALIST 11/18/2024 9:31 AM REAL ESTATE MANAGEMENT SPECIALIST Narrative PATHOLOGY [facility] - 11/21/2024 9:25 AM REAL ESTATE MANAGEMENT SPECIALIST [facility] Department of Pathology [address] [place] [id number] Final Report Note to Patients: This report may contain a detailed description of human tissue sent by a health care provider to the laboratory for pathologic evaluation. The content of this report is essential for diagnosis and may provide important critical findings. This information may be unfamiliar to patients to review without a medical professional present. It is advised that the patient review this report in the presence of a health care provider who can answer questions and explain the details. Patient Name: ANABELLE GRIJALVA Address: [address] [place] [address], [place] [address] Gender: F : 1995 (Age: 29) Service: Location: [facility] #: [id number] Patient Type: SPECIMEN Taken: 11/17/2024 Received: 11/18/2024 Accessioned:: 11/18/2024 Reported: 11/21/2024 Physician(s): Stefanie Bai RN, DRAFTER SEISMOGRAPH Stefanie Bai RN, DRAFTER SEISMOGRAPH Diagnosis: SOURCE OF SPECIMEN Imaged Thinprep Pap Test w/ Reflex HPV - Manager Organizational Cytologic Material: STATEMENT OF ADEQUACY - Specimen satisfactory for interpretation; endocervical/transformation zone component absent or insufficient GENERAL CATEGORIZATION: - Negative for intraepithelial lesion or malignancy CRISTI Hebert(ASCP) Report Electronically Reviewed and Signed Out By CRISTI Hebert(ASCP) 11/21/2024 09:25:22Specimen(s) Received: A: Imaged Thinprep Pap Test w/ Reflex HPV - Manager Organizational Cytologic Material Clinical History: Last Menstrual Period: 08/29/2024 The Pap test is a screening test used to aid in the detection of cervical cancer and its precursors. It should not be the sole means by which malignant and premalignant lesions are diagnosed. Both false negative and false positive results may occur. It also has poor sensitivity for the detection of endometrial lesions and should not be used to evaluate suspected endometrial abnormalities. For these reasons it is most important to obtain Pap tests at regular intervals. The performance characteristics of some immunohistochemical stains, fluorescence in-situ hybridization tests and immunophenotyping by flow cytometry cited in this report (if any) were determined by the Surgical Pathology Department at [facility] as part of an ongoing vendor quality supervisor program and in compliance with federally mandated regulations drawn from the Clinical Laboratory Improvement Act of 1988 (CLIA '88). Some of these tests rely on the use of analyte specific reagents and are subject to specific labeling requirements by the US Food and Drug Administration. Such diagnostic tests may only be performed in a facility that is certified by the Department of Health and Human Services as a high complexity laboratory under CLIA '88. The FDA has determined that such clearance or approval is not necessary. This test is used for clinical purposes. It should not be regarded as investigational or for research. Nevertheless, federal rules concerning the medical use of analyte specific reagents require that the following disclaimer be attached to the report: This test was developed and its performance characteristics determined by the Surgical Pathology Department [facility]. It has not been cleared or approved by the U. S. Food and Drug Administration. Stefanie Bai NP LAB CYTOLOGY ORDERABLES Nannette arabella Result Performing Organization Address City/State/[facility] Co de Phone Number PATHOLOGY [address] [place] [address] from Last 3 Months or Most Recently Relevant to Health Maintenance Insurance [facility] Advance Directives For more information, please contact: [phone] * Full Code (Latest Code Status on File) Date Activated Date Inactivated Comments 05/27/2025 6:02 PM 05/29/2025 11:15 PM * Full Code Date Activated Date Inactivated Comments 05/26/2025 5:44 PM 05/27/2025 6:02 PM Full CPR in ca se of cardiopulmonary arrest * Full Code Date Activated Date Inactivated Comments 04/27/2025 4:43 PM 04/29/2025 12:20 AM Care Teams Segmental Wall Installer Relationship Specialty Start Date End Date Mylene Hanna DO [address] [place] [address] [address] PCP - General Family Medicine 01/19/25 No, Physician 09/29/24
--- OUTSIDE RECORDS SUMMARY | 2025-05-29 23:47 | XMS_ITS | Encounter Summary ---
Author Organization [facility] Healthcare Address [address] [place] [address] Care Team Providers Care Mold Yard Worker Name Role Phone No, Physician Unavailable Mylene Hanna DO Primary Care Provider + Encounter Details Date Type Department Care Team (Late st Contact Info) Description 04/03/2025 Results Follow-Up [facility] [address] [facility] [facility] [facility] [address] [place] [id number] Luz Vivar MD [address] [place], [place] [id number] Ob Follow Up Social History Tobacco Use Types Packs/Day Years Used Date Smoking Tobacco: Never [place] Depression Scale Answer Date Recorded [place] Depression Scale Total 2 03/30/2025 The thought of harming myself has occurred to me . 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
--- OUTSIDE RECORDS SUMMARY | 2025-05-29 23:47 | XMS_ITS | Clinical Summary ---
Author Organization [facility] [address] [place] [address] Address [address] [place] [address] Care Team Providers Care Helmet Hat Puncher Name Role Phone No, Physician Unavailable Mylene Hanna DO Primary Care Provider + Allergies No known active allergies Medications 38-ytwr-iknvlw 6-dha 30 mg iron-1mg -200 mg capsule [...] Overview (12/16/2024): For varivax. WEOB: pt of [place] 11/24/2024 Overview (05/11/2025): 1st Trimester: [x] Dating Criteria: L=1 (US 10/27/24 with HAI 06/05/25) [x] Labs: Lab Results Component Value Date ABORH O Positive 11/17/2024 IDCOOMB Negative 11/17/2024 [id number] Nonreactive 11/17/2024 LABRPR Nonreactive 11/17/2024 RUBELIGG Reactive [...] at 24-28wks: Lab Results Component Value Date [id number] 154 (H) 02/16/2025 [id number] Nonreactive 02/16/2025 LABRPR Nonreactive 02/16/2025 [x] Rhogam (if Rh neg): not indicated [x] Childbirth classes discussed 3rd Trimester: [x] GBS: neg Counseling: [x] Flu Shot (Jul-January) given 10/20 [x] RSV Shot (32-36wks) - N/A [x] Tdap (27-36wks) 03/16 [x] Method of delivery: Anticipate vaginal delivery Encounters Date Type Department Care Team Description 05/27/2025 10:03 AM CDT Anesthesia Event [address] [phone] Priti Girard MD Spreen, Nancy J., IZA 05/26/2025 2:01 PM CDT - 05/29/2025 7:05 PM CDT Hospital Encounter [address] [phone] Marielle Wakefield MD Normal labor (Primary Dx); Obesity in ; care insufficient, unspecified trimester; Maternal varicella, non-immune Discharge Disposition: Discharge to home or self care 05/18/2025 10:00 AM CDT Office Visit [address] [phone] Stefanie Bai, TRAY LINE SUPERVISOR WEOB: pt of [place] (Primary Dx) 05/11/2025 10:30 AM CDT Office Visit [address] [phone] Luz Veloz MD WEOB: pt of [place] (Primary Dx); WEOB: BMI 34 at IOB; 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; WEOB: Varicella nonimmune 04/30/2025 Results Follow-Up [address] [phone] Luz Veloz MD Group B streptococcal culture Vaginal/Rectal 04/28/2025 9:45 AM CDT Ancillary Procedure [facility] [address] [place] [address] WEOB: BMI 34 at IOB 04/27/2025 4:50 PM CDT Ancillary Procedure [address] [phone] 04/27/2025 1:18 PM CDT - 04/28/2025 8:19 PM CDT Hospital Encounter [address] [phone] Luz Veloz MD Threatened labor, third trimester (Primary Dx) Discharge Disposition: Discharge to home or self care 04/27/2025 11:27 AM CDT - 04/27/2025 11:59 PM CDT Hospital Encounter [address] [address] WEOB: pt of [place] Discharge Disposition: Discharge to home or self care 04/27/2025 10:30 AM CDT Office Visit [address] [phone] Luz Veloz MD WEOB: pt of [place] (Primary Dx); WEOB: BMI 34 at IOB; 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; WEOB: Varicella nonimmune 04/19/2025 4:39 PM CDT - 04/19/2025 6:00 PM CDT Hospital Encounter [address] [phone] Charisse Eisenberg MD Discharge Disposition: Discharge to home or self care 04/15/[address] [phone] Luz Veloz MD 04/14/2025 10:00 AM CDT Office Visit [address] [phone] Stefanie Bai, TRAY LINE SUPERVISOR WEOB: pt of [place] (Primary Dx) 04/03/2025 Results Follow-Up [facility] [address] [place] [phone] Luz Veloz MD Ob Follow Up 04/01/2025 2:30 PM CDT Ancillary Procedure [facility] at [address] [phone] Obesity in 03/30/2025 4:00 PM CDT Office Visit [facility] [address] [place] [phone] Luz Veloz MD WEOB: pt of [place] (Primary Dx); WEOB: BMI 34 at IOB; 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; WEOB: Varicella nonimmune 03/27/2025 Telephone [facility] [address] [place] [phone] Kaela Oneal RN 03/25/2025 Orders Only [facility] [address] [place] [phone] Luz Veloz MD Obesity in (Primary Dx) 03/25/2025 Orders Only [facility] [address] [place] [phone] Luz Veloz MD 03/18/2025 Results Follow-Up [facility] [address] [place] [phone] Stefanie Bai, TRAY LINE SUPERVISOR Urine culture Urine, clean voided 03/16/2025 11:45 AM CDT - 03/16/2025 11:59 PM CDT Hospital Encounter [address] [address] Gross hematuria; care, first in third trimester Discharge Disposition: Discharge to home or self care 03/16/2025 10:30 AM CDT Office Visit [facility] [address] [place] [phone] Stefanie Bai, TRAY LINE SUPERVISOR WEOB: pt of [place] (Primary Dx); 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; WEOB: Varicella nonimmune; WEOB: BMI 34 at IOB; Gross hematuria; care, first in third trimester from Last 3 Months Immunizations Immunization Administration Dates Next Due Influenza, Trivalent, Preser vative Free, Intramuscular 10/20/2024 MMR 05/29/2025(Deferred: No longer n eeded) Tdap 03/16/2025 Varicella 05/29/2025 Medical History Medical History Date Comments Carpal tunnel syndrome during Family History Medical History Relation Name Comments No Known Problems Brother Diabetes Father Hypertension Father Kidney disease Father Diabetes Mother Hypertension Mother Leukemia Sister 1 Sickle cell trait Sister 2 Relation Name Status Comments Brother Alive Father Alive Mother Alive Sister 1 Alive Sister 2 Alive Social History Tobacco Use Types Packs/Day Years Used Date Smoking Tobacco: Never Tobacco Cessation:Counseling Given: Not Answered [facility] Utilities Answer Date Recorded In the past 12 months has [employer], gas, oil, or water [employer] threatened to shut off services in your [...] often do you attend chur ch or roman catholic services? Never 05/28/2025 Do you belong to any clubs o r organizations such as roman catholic groups, unions, fraternal or athletic groups, or [...] things needed for daily living? No 05/28/2025 Vidalia Depression Scale Answer Date Recorded Vidalia Depression Scale Total 2 03/30/2025 The thought [...] any time in the past 12 m [place], were you homeless or living in a skilled nursing (including now)? No 05/28/2025 Personal Safety Answer Date Recorded Have you ever been in or are you currently in a harmful physical or emotional relationship or is someone making you feel afraid or unsafe? 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 Gender Identity Not on file Sexual Orientation Not on file Obstetrics History Para Term AB IAB SAB Ectopic Multiple Livin g Live Births 1 1 1 0 1 1 Date Outcome GA Total Labor Labor/2nd/3rd Weight Sex Type Anes PTL Aracelis A1 A5 Name Clin 2024 Term 38w 5d 3h 10m 3h 04m/0h 06m 3.24 kg (7 lb 2.3 oz) M Vagina l Epidur al N Livin g 8 9 BoyTa alissa Viveros or Hope Govea MD Complications:None Delivery Location:[facility] Main C ampus ([facility] 58LD) Summary Episode Dates Number of Fetuses Estimated Date of Delivery 11/17/2024 - Present (05/29/2025) 1 06/05/2025 (set by Stefanie Bia, TRAY LINE SUPERVISOR on 11/17/2024 based on Last Menstrual Period on 08/29/2024 (Exact Date)) Dating Summary Based On HAI GA Diff Last Menstrual Period on 08/29/2024 (Exact Date) 06/05/2025 Working Ultrasound on 11/17/2024 06/05/2025 Same GA:11w3d Alternate HAI Entry 06/05/2025 Same Comment:Date entered prior t o episode creation Overview and Plan :Aquino sex:Male Support person:Corrales yee Rudi [phone] Delivery Plans Post-Delivery Plans Deliver by GA (weeks):40 Feeding intenti ons:Breast Milk Planned delivery method:Vaginal Circumci allen requested:Provider Performed Planned delivery location:[facility] Planned control:Condom Male Planned anesthesia:Epidural Acceptable blood products:All Overview Baby boy Titan Peds: [facility] ([place], [place]) Vitals Pregravid Weight Height TWG (As of 05/29/2025) Pregrav id BMI 160 cm (5' 3) Date GA Fund Present FHR Mvmt BP Weight Edema Alb Glu Ket Dil/ Eff/Sta 025 20w5d Inpatient data not displayed here. See encounter summary. 025 25w4d Inpatient data not displayed here. See encounter summary. 025 33w2d Inpatient data not displayed here. See encounter summary. 025 34w3d 126/7 2 97.3 kg (214 lb 6.4 oz) 4 025 34w4d Inpatient data not displayed here. See encounter summary. 025 38w5d Inpatient data not displayed here. See encounter summary. Notes Progress Notes - Hospital En counter - 05/29/2025 - GA:38w5d 05/29/2025 - 38w5d - Kassie Walker MD Post Progress Note Delivery Date/Time: 05/27/2025t 4:54 PM Delivery method: Vaginal [[id number]] Subjective Flatus: Yes Pain: Well controlled Diet: Tolerating regular diet. Ambulating independently Voiding spontaneously Lochia less than menses Pt is doing well at this time with no concerns. went well yesterday and they're ready to be discharged home. Scheduled Medications acetaminophen, 1,000 mg, oral, Q6H PEPE docusate sodium, 100 mg, oral, BID viatmin, 1 tablet, oral, Daily polyethylene glycol, 17 g, oral, Daily PRN Medications benzocaine-menthoL calcium carbonate hydrocortisone ibuprofen yqpaeyv-qxpfp-rvtqdwr ondansetron ODT OR ondansetron varicella zoster Vitals: Temp: [36.8 C (98.2 F)-37 C (98.6 F)] 36.8 C (98.2 F) Pulse: [75-85] 75 BP: (119-123)/(59-78) 119/78 Resp: [16-18] 18 SpO2: [99 %-100 %] 99 % No intake or output data in the 24 hours ending 05/29/25 0535 Physical Exam General: No acute distress. Cardiovascular: Regular rate. Lungs: Non-labored. Abdomen: Soft, non-distended, non-tender to palpation. Fundus below umbilicus. Extremities: Warm and well-perfused. Neuro: Globally intact Recent Labs Lab Units 05/28/25 0639 05/26/25 1751 WBC K/cumm -- 7.11 HEMOGLOBIN g/dL -- 13.1 HEMATOCRIT % -- 39.3 PLATELETS K/cumm -- 191 CREATININE mg/dL -- 0.62 AST Units/L -- 18 ALT Units/L -- 9 GLUCOSE mg/dL -- 113 POC GLUCOSE MONITOR mg/dL 82 -- Assessment and Plan 30 y.o. PPD#2from . Problem Care Following Vaginal Delivery # ID: Afebrile. No signs/symptoms of infection. [...] up task not sent. Continue routine care. Kassie Griffith MD 05/29/25 R4 Attestation PPD#2 from [facility], recovering well. Meeting post milestones, appropriate for d/c home. Adwoa Lewis MD PGY-4 Cosigned by Charisse Eisenberg MD at 05/29/2025 9:18 AM CDT Associated attestation - Charisse Eisenberg MD - 05/29/2025 9:18 AM CDT Patient seen and examined independently. Resident note reviewed. Agree with note with the following changes/additions: None. Pt is doing well. Pt declines contraception. Discussed importance of avoiding pg for at least 1 year. Dsicussed Phexxi and condom use. BP 130/64 (BP Location: Right arm, Patient Position: HOB 30 degrees) Pulse 84 Temp 36.4 C (97.5 F) (Oral) Resp 17 Ht 160 cm (5' 3) Wt 219 lb (99.3 kg) LMP 08/29/2024 (Exact Date) SpO2 100% Yes BMI 38.79 kg/m Physical exam as documented. Appropriate assessment and plan. Plan for d/c PPD# 2, today Charisse Eisenberg MD 05/29/2025 9:17 AM 05/28/2025 - 38w5d - Kassie Walker MD Post Progress Note Delivery Date/Time: 05/27/2025t 4:54 PM Delivery method: Vaginal [[id number]] Subjective Flatus: Yes Pain: Well controlled Diet: Tolerating regular diet. Ambulating independently Voiding spontaneously Lochia less than menses Pt is doing well at this time with no concerns. She's feeling discomfort in her bottom but no pain. She denies lightheadedness, CHRISTIANSON, vision changes, SOB, CP, or leg swelling. Scheduled Medications acetaminophen, 1,000 mg, oral, Q6H PEPE docusate sodium, 100 mg, oral, BID viatmin, 1 tablet, oral, Daily polyethylene glycol, 17 g, oral, Daily PRN Medications benzocaine-menthoL calcium carbonate hydrocortisone ibuprofen mmucutl-xjfyw-etwoczv ondansetron ODT OR ondansetron varicella zoster Vitals: Temp: [36.7 C (98.1 F)-36.9 C (98.4 F)] 36.7 C (98.1 F) Pulse: [76-103] 101 BP: (105-151)/(47-94) 114/50 Resp: [16-18] 16 SpO2: [92 %-100 %] 100 % Intake/Output Summary (Last 24 hours) at 05/28/2025 0741 Last data filed at 05/27/2025 1815 Gross per 24 hour Intake 1846.42 ml Output 483 ml Net 1363.42 ml Physical Exam General: No acute distress. Cardiovascular: Regular rate. Lungs: Non-labored. Abdomen: Soft, non-distended, non-tender to palpation. Fundus below umbilicus. Extremities: Warm and well-perfused. Neuro: Globally intact Recent Labs Lab Units 05/28/25 0639 05/26/25 1751 WBC K/cumm -- 7.11 HEMOGLOBIN g/dL -- 13.1 HEMATOCRIT % -- 39.3 PLATELETS K/cumm -- 191 CREATININE mg/dL -- 0.62 AST Units/L -- 18 ALT Units/L -- 9 GLUCOSE mg/dL -- 113 POC GLUCOSE MONITOR mg/dL 82 -- Assessment and Plan 30 y.o. PPD#1from . Problem Care Following Vaginal Delivery # ID: Afebrile. No signs/symptoms of infection. [...] up task not sent. Continue routine care. Adwoa Lewis MD 05/28/25 R4 Attestation PPD#1 from [facility]. Continue routine post care. Adwoa Lewis MD PGY-4 Cosigned by Marcos Montoya MD at 05/28/2025 9:24 AM CDT Associated attestation - Marcos Montoya MD - 05/28/2025 9:24 AM CDT Images from the original note were not included. I have seen and examined the patient on 05/28/25. I agree with the findings and plan of care as documented in the resident's/fellow's note. Continue care & support. Marcos Montoya MD 05/27/2025 - 38w5d - Hope Gvoea MD OB Attending Note Continues to be cat 2 with pushing. Variable decels after pushing. Quick return to baseline. Moved to side and variables were not as deep. Plan to continue pushing on side, changing sides as tolerated. Can push every other if needed. Will try closed knee or butterfly pushes as well. Station +2. NEERU by palpation, confirmed with US. Discussed second stage and pushing expectations with patient, however heart rate tracing may limit these. Discussed possible if intolerance to pushing persists Hope Govea MD 05/27/2025 - 38w5d - Kassie Walker MD Labor Update Note S: Patient s/p epidural and comfortable. To bedside due to decel noted at 1315 and 1318. Pt was placed on hands and knees by RN when we arrived. Cervical check conducted, confirmed that anterior lip is still present. No cord felt. Will CTM. O: BP 126/59 Pulse 88 Temp 36.9 C (98.4 F) (Oral) Resp 16 Ht 160 cm (5' 3) Wt 219 lb (99.3 kg) LMP 08/29/2024 (Exact Date) SpO2 98% BMI 38.79 kg/m SVE: Lip/rim (Comment) /90 /0 Monitoring: Baseline: 145 bpm, Variability: Periods of Minimal, Accelerations: Absent and Decelerations: Yes, multiple late decelerations noted Uterine Activity: Difficult to assess given suboptimal tocometry while on hands and knees A/P: 30 y.o. at 38w5d Category 2 tracing, reassured by return to baseline on hands and knees and cervical change to near complete Vitals: reviewed and normal Additional medications/infusions: oxytocin paused - will restart after recovery. Kassie Griffith MD Cosigned by Hope Govea MD at 05/27/2025 2:05 PM CDT Associated attestation - Hope Govea MD - 05/27/2025 2:05 PM CDT I have seen and examined the patient on 05/27/25. I agree with the findings and plan of care as documented in the resident's/fellow's note.. Anterior lip reduced with a practice push. FH cat 2 with pushing, variables after some pushes. Continue pushing, can convert to side pushing or pushing with every other contraction pending status. OT back on after earlier decel Hope Govea MD 05/27/2025 - 38w5d - Adwoa Joy MD Labor Update Note To bedside due to tracing with decreasing variability and intermittent late variables. Patient positioned to left lateral followed by prolonged decel which improved with positioning to hands and knees and pausing OT. SVE 9.5/100/0. Will allow for recovery and then restart OT. Anticipate . Dr. Govea updated Adwoa Lewis MD ADDENDUM 1:49 PM Tracing with improving variability, starting LR bolus. SVE with anterior lip, able to push to +1. Will start pushing. Dr. Govea aware and en route. Adwoa Lewis MD 05/27/2025 - wsanchez - Charisse Eisenberg MD Attending note Late entry Labor Progress Note Subjective Pt states comfortable s/p epidural. Discussed AROM with pt and agreed to plan. Objective Vitals Most Recent : Vitals: 05/27/25 1130 BP: 126/59 Pulse: 88 Resp: Temp: SpO2: 98% Average, Minimum, and Maxium Vitals over the past 24 hours: Physical Exam Cervical: 6 cm dilated, 90 effaced, -1 station, AROM easily with clear fluid return Monitoring: Heart Monitoring: External monitor: reactive, 135 Uterine Activity: External [place]: and Frequency: Every 3-4 minutes Oxytocin at 18 units Assessment /Plan Anabelle Grijalva is a 30 y.o. female at 38w5d weeks gestation Labor: latent labor, AROm w/ clr fluid. Oxytocin reduced to 10 units. Recheck cervix at 12 noon. Increase oxytocin if minimal change Well Being: Category I. Anticipate Charisse Eisenberg MD 1:32 AM 05/27/2025 - 38w5d - Jordyn Washington MD Labor Update Note S: Patient comfortable between contractions. O: BP 122/69 Pulse 83 Temp 36.7 C (98.1 F) (Oral) Resp 16 Ht 160 cm (5' 3) Wt 219 lb (99.3 kg) LMP 08/29/2024 (Exact Date) SpO2 100% BMI 38.79 kg/m SVE: Patient currently in circuit of positions. Will recheck once circuit is done. Monitoring: Baseline: 140 bpm, Variability: Moderate, Accelerations: Present and Decelerations: None Uterine Activity: Contractions present, q2-3 minutes A/P: 30 y.o. at 38w5d Category I tracing Vitals: reviewed and normal Additional medications/infusions: oxytocin - will continue to titrate per protocol Jordyn Washington MD 05/27/2025 - eloina - Blayne Lowe MD Labor Update Note S: Patient feeling painful contractions and comfortable between contractions O: BP 123/66 Pulse 82 Temp 36.9 C (98.5 F) (Oral) Resp 16 Ht 160 cm (5' 3) Wt 219 lb (99.3 kg) LMP 08/29/2024 (Exact Date) SpO2 98% BMI 38.79 kg/m SVE: 4.5 /75 /-3 Monitoring: Baseline: 135 bpm, Variability: Moderate, Accelerations: Present and Decelerations: one late appearing decel Uterine Activity: Irregular contractions A/P: 30 y.o. at 38w4d Category 2 tracing, one late decel, reassured by moderate variability Vitals: reviewed and normal Additional medications/infusions: none To start on OT, given no cervical change Blayne Lowe MD 05/27/2025 - Blayne Arreguin MD Labor Update Note S: Patient feeling painful contractions and comfortable between contractions O: BP 129/74 Pulse 100 Temp 36.7 C (98.1 F) (Oral) Resp 18 Ht 160 cm (5' 3) Wt 219 lb (99.3 kg) LMP 08/29/2024 (Exact Date) SpO2 92% BMI 38.79 kg/m SVE: 4.5 /75 /-3 Monitoring: Baseline: 140 bpm, Variability: Moderate, Accelerations: Present and Decelerations: None Uterine Activity: Contractions present, q3-5 minutes, poorly captured on toco due to patient movement A/P: 30 y.o. at 38w4d Category 1 tracing Vitals: reviewed and normal Additional medications/infusions: none Patient desires to be rechecked in 2-4 hours. If largely unchanged, she would like to consider augmentation Blayne Lowe MD Progress Notes - Office Visi t - 05/18/2025 - GA:37w3d 05/18/2025 - 37w3d - Stefanie Bai, TRAY LINE SUPERVISOR No concerns Continue to monitor for regular movement Sudden decrease must seek care Signs of labor reviewed, location of [facility] Seek care immediately for vaginal bleeding. LOF, Continue to wear mask, social distancing, hand hygeine Signs of PrE reviewed, seek care for CHRISTIANSON, blurred vision, RUQ pain, and/or sudden swelling Cosigned by Luz Veloz MD at 05/18/2025 2:35 PM CDT Associated attestation - Luz Veloz MD - 05/18/2025 2:35 PM CDT Images from the original note were not included. I have reviewed Stefanie's note and agree with the current plan. Luz Veloz MD [facility] [address] [place] [address] Progress Notes - Office Visi t - 05/11/2025 - GA:36w3d 05/11/2025 - 36w3d - Luz Veloz MD +FM, -VB/LOF/Ctx. Patient ok with IOL being scheduled 06/05, will reach out to schedulers. Labor precautions discussed. [facility] location discussed. Progress Notes - Hospital En counter - 04/28/2025 - GA:34w4d 04/28/2025 - - Nohemi Vazquez Chaplain Nohemi Rivas [facility] Spiritual Care Triage: [phone] 04/28/25 1100 Time Spent Start Time 1015 Stop Time 1030 Time Calculation (min) 15 min Patient Spiritual Assessment Spirituality Assessed Focus of Care Clinical Encounter Type Visited With Patient and family together Response Type Routine visit Routine Visit Introduction Reason for visit Support Outcomes and Progress Demonstrating care and respect Achieved Interventions Interventions Offer emotional support;Offer spiritual/roman catholic support 04/28/2025 - - Jillian Ortiz NP Antepartum Progress Note Gestational Age: 34w4d Admission Date: 04/27/2025 Length of stay: 1 Brief HPI: 30 y.o. female at 34w4d gestation admitted for threatened labor also complicated by VZV NI, obesity (BMI 38), SMA carrier INTERVAL HISTORY - BMZ^04/29 @1600 SUBJECTIVE - reports 3 contractions overnight, not painful, decreased from yesterday, she had 2 non painful contractions shortly before I came into the room to see her, but she fell asleep shortly after. - Reports active movement. No vaginal bleeding/leakage of fluid. Review of Systems Negative except as per above. OBJECTIVE Vitals: Temp Min: 36.6 C (97.8 F) Max: 37.1 C (98.7 F) Pulse Min: 83 Max: 97 BP Min: 110/55 Max: 126/72 Resp Min: 16 Max: 18 SpO2 Min: 97 % Max: 99 % FHR: NST reactive [place]el[place]: rare contractions Physical Exam General: No acute distress. Cardiovascular: Normal rate, regular rhythm Lungs: Non-labored. Abdomen: Soft, non-tender, gravid. Extremities: Warm and well-perfused. Pelvic: Deferred. Neurologic: Alert and oriented x4, non-focal Lab Review: Recent Results Recent Results (from the past 24 hours) POCT urinalysis ([place]) Collection Time: 04/27/25 1:39 PM Result Value Ref Range Color, ur, POC Yellow Yellow Clarity, UA, POC Clear Clear Glucose, ur, POC Negative Negative Bilirubin, ur, POC Negative Negative Ketones, ur, POC Negative Negative Specific gravity, ur, POC 1.010 1.010 - 1.025 Blood, ur, POC Trace (A) Negative pH, ur, POC 7.0 Protein, ur, POC Negative Negative Urobilinogen, ur, POC 0.2 mg/dL mg/dL Nitrites, ur, POC Negative Negative Leukocyte esterase, ur, POC 1+ (A) Negative CBC without differential Collection Time: 04/27/25 8:44 PM Result Value Ref Range WBC 8.59 3.80 - 9.90 K/cumm Hgb 12.4 11.9 - 15.5 g/dL Hct 35.6 35.6 - 45.5 % Plt 179 150 - 400 K/cumm MPV 10.3 9.1 - 12.3 fL RBC 4.33 3.90 - 5.20 M/cumm MCV 82.2 81.3 - 96.4 fL MCH 28.6 27.1 - 33.3 pg MCHC 34.8 32.3 - 35.7 g/dL RDW CV 13.8 11.1 - 14.9 % RDW SD 41.1 35.7 - 48.1 fL NRBC abs 0.00 0.00 - 0.01 K/cumm HIV 1/2 Antibody plus p24 Antigen Blood Collection Time: 04/27/25 8:44 PM Specimen: Blood Result Value Ref Range HIV 1/2 ab + p24 ag Nonreactive Nonreactive RPR Blood Collection Time: 04/27/25 8:44 PM Specimen: Blood Result Value Ref Range RPR Nonreactive Nonreactive Type and screen Collection Time: 04/27/25 8:44 PM Result Value Ref Range Juanjo, indirect Negative ABO Rh O Positive Urinalysis reflex to microscopic and culture Urine, clean voided Collection Time: 04/27/25 8:55 PM Specimen: Urine, clean voided Result Value Ref Range Color, ur Straw Yellow Clarity, ur Clear Clear Specific gravity, ur 1.015 1.003 - 1.030 pH, urine 6.5 Protein, ur ql Negative Negative Glucose, ur ql Negative Negative Ketones, ur 2+ (A) Negative Bilirubin, ur Negative Negative Blood, ur Negative Negative Urobilinogen, ur <2.0 <2.0 mg/dL Nitrite, ur Negative Negative Leukocyte esterase, ur Negative Negative Check Sample Collection Time: 04/27/25 10:26 PM Result Value Ref Range ABO Rh O Positive ASSESSMENT/PLAN Anabelle Grijalva is a 30 y.o. at 34w4d admitted for tPTL #tPTL - Admission SVE 02/17/-4 -> 02/17/-4 x 2 - irregular ctxns, overall comfortable appearing - Tocolysis deferred given 34 weeks gestational age - GC/CT/Trich pending on admission, Ucx pending on admission - BMZ^04/29@1613 Plan: - continue to monitor - SVE PRN #elevated 1hr GTT - neg 3hr GTT #obesity - BMI at IOB 34 - current BMI 38 #SMA carrier - partner also a carrier for SMA - s/p genetic counselor referral, declined amniocentesis/ intervention - for routine care, alert peds at delivery #FWB - BSUS 04/27: EFW 2572g, (62%tile) - fUS: due 04/28 - BMZ^04/29@1613 - Mg/PCN deferred - Peds consult ordered on admission - MONITORING PLAN: dNST #MWB #VZV NI - PNL: Rh +/Ab neg/HIV NR/Rub Imm/VZV NI/RPR NR/HepB NR/Hep C NR/GC/CT/trich negx3 - 1 hr GTT 154 - 3T HIV/RPR NR/NR - s/p flu 10/20, Tdap 03/16 - Rhogam not indicated - GBS in process - MOD: anticipate vaginal - MOF/MOC: breast/condoms Dispo: consider discharge today after 2nd BMZ if stable Jillian Smalls [id number] 04/28/2025 - 34w4d - Jeaneth Araujo MD Antepartum Progress Note Gestational Age: 34w4d Admission Date: 04/27/2025 Length of stay: 1 Brief HPI: 30 y.o. female at 34w4d gestation admitted for threatened labor also complicated by VZV NI, obesity (BMI 38), SMA carrier INTERVAL HISTORY - BMZ^04/29 @1600 SUBJECTIVE - reports 3 contractions overnight, not painful, decreased from yesterday - Reports active movement. No vaginal bleeding/leakage of fluid. Review of Systems Negative except as per above. OBJECTIVE Vitals: Temp Min: 36.6 C (97.8 F) Max: 37.1 C (98.7 F) Pulse Min: 83 Max: 97 BP Min: 110/55 Max: 126/72 Resp Min: 16 Max: 18 SpO2 Min: 97 % Max: 99 % FHR: NST reactive [place]: rare contractions Physical Exam General: No acute distress. Cardiovascular: Normal rate, regular rhythm Lungs: Non-labored. Abdomen: Soft, non-tender, gravid. Extremities: Warm and well-perfused. Pelvic: Deferred. Neurologic: Alert and oriented x4, non-focal Lab Review: Recent Results (from the past 24 hours) POCT urinalysis (Cl[place]) Collection Time: 04/27/25 1:39 PM Result Value Ref Range Color, ur, POC Yellow Yellow Clarity, UA, POC Clear Clear Glucose, ur, POC Negative Negative Bilirubin, ur, POC Negative Negative Ketones, ur, POC Negative Negative Specific gravity, ur, POC 1.010 1.010 - 1.025 Blood, ur, POC Trace (A) Negative pH, ur, POC 7.0 Protein, ur, POC Negative Negative Urobilinogen, ur, POC 0.2 mg/dL mg/dL Nitrites, ur, POC Negative Negative Leukocyte esterase, ur, POC 1+ (A) Negative CBC without differential Collection Time: 04/27/25 8:44 PM Result Value Ref Range WBC 8.59 3.80 - 9.90 K/cumm Hgb 12.4 11.9 - 15.5 g/dL Hct 35.6 35.6 - 45.5 % Plt 179 150 - 400 K/cumm MPV 10.3 9.1 - 12.3 fL RBC 4.33 3.90 - 5.20 M/cumm MCV 82.2 81.3 - 96.4 fL MCH 28.6 27.1 - 33.3 pg MCHC 34.8 32.3 - 35.7 g/dL RDW CV 13.8 11.1 - 14.9 % RDW SD 41.1 35.7 - 48.1 fL NRBC abs 0.00 0.00 - 0.01 K/cumm HIV 1/2 Antibody plus p24 Antigen Blood Collection Time: 04/27/25 8:44 PM Specimen: Blood Result Value Ref Range HIV 1/2 ab + p24 ag Nonreactive Nonreactive RPR Blood Collection Time: 04/27/25 8:44 PM Specimen: Blood Result Value Ref Range RPR Nonreactive Nonreactive Type and screen Collection Time: 04/27/25 8:44 PM Result Value Ref Range Juanjo, indirect Negative ABO Rh O Positive Urinalysis reflex to microscopic and culture Urine, clean voided Collection Time: 04/27/25 8:55 PM Specimen: Urine, clean voided Result Value Ref Range Color, ur Straw Yellow Clarity, ur Clear Clear Specific gravity, ur 1.015 1.003 - 1.030 pH, urine 6.5 Protein, ur ql Negative Negative Glucose, ur ql Negative Negative Ketones, ur 2+ (A) Negative Bilirubin, ur Negative Negative Blood, ur Negative Negative Urobilinogen, ur <2.0 <2.0 mg/dL Nitrite, ur Negative Negative Leukocyte esterase, ur Negative Negative Check Sample Collection Time: 04/27/25 10:26 PM Result Value Ref Range ABO Rh O Positive ASSESSMENT/PLAN Anabelle Grijalva is a 30 y.o. at 34w4d admitted for tPTL #tPTL - Admission SVE 02/17/-4 -> 02/17/-4 x 2 - irregular ctxns, overall comfortable appearing - Tocolysis deferred given 34 weeks gestational age - GC/CT/Trich pending on admission, Ucx pending on admission - BMZ^04/29@1613 Plan: - continue to monitor - SVE PRN #elevated 1hr GTT - neg 3hr GTT #obesity - BMI at IOB 34 - current BMI 38 #SMA carrier - partner also a carrier for SMA - s/p genetic counselor referral, declined amniocentesis/ intervention - for routine care, alert peds at delivery #FWB - BSUS 04/27: EFW 2572g, (62%tile) - fUS: due 04/28 - BMZ^04/29@1613 - Mg/PCN deferred - Peds consult ordered on admission - MONITORING PLAN: dNST #MWB #VZV NI - PNL: Rh +/Ab neg/HIV NR/Rub Imm/VZV NI/RPR NR/HepB NR/Hep C NR/GC/CT/trich negx3 - 1 hr GTT 154 - 3T HIV/RPR NR/NR - s/p flu 10/20, Tdap 03/16 - Rhogam not indicated - GBS in process - MOD: anticipate vaginal - MOF/MOC: breast/condoms Dispo: consider discharge today after 2nd BMZ if stable Jeaneth Araujo MD PGY-2 Obstetrics & Gynecology 04/28/25 Cosigned by Luz Veloz MD at 04/28/2025 4:03 PM CDT Associated attestation - Luz Veloz MD - 04/28/2025 4:03 PM CDT Images from the original note were not included. The resident/fellow saw and examined the patient, we discussed their findings, and I am in agreement with the plan based on the discussion with the resident/fellow. I did not personally examine the patient. Luz Veloz MD [facility] [address] [place], [place] [id number] 04/27/2025 - 34w3d - Rose Marie Roldan NP Obstetrics H&P Chief Complaint: Pre-term Contractions Estimated Date of Delivery: 06/05/25 Provider: Jonathan Jiménez HPI: Anabelle Grijalva is a 30 y.o. female at 34w3d gestation, dated by L=1st trimester ultrasound here today for contractions. She is here today from the clinic with contractions reported and her cervix was 3cm. 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 History of Abnormal Pap: NIL STD History: None Past Medical History: Diagnosis Date Carpal tunnel syndrome during Chronic hypertension: No Diabetes: No Asthma: No History reviewed. No pertinent surgical history. Social History Tobacco Use Smoking status: Never Smokeless tobacco: None Substance and Sexual Activity Drug use: Not Currently Types: Alcohol Sexual activity: Yes Partners: Male Alcohol Use: Not on file Support System: Supported by her Nilda Safe at home: Yes family history includes Diabetes in her father and mother; Hypertension in her father and mother; Kidney disease in her father; Leukemia in her sister; No Known Problems in her brother; Sickle cell trait in her sister. Family history of bleeding or clotting disorders: Yes, parents sister has Sickle-Cell Trait. Family history of defects, genetic disorders, or developmental delay: No No Known Allergies HOME MEDICATIONS : aspirin 81 mg enteric coated tablet [id number] 6-dha 30 mg iron-1mg -200 mg capsule Review of Sys: Negative except per HPI Vitals: Temp: [37.1 C (98.7 F)] 37.1 C (98.7 F) Pulse: [97] 97 Resp: [18] 18 BP: (118-126)/(70-72) 118/70 Physical Exam: General: NAD, mood appropriate Cardiovascular: Regular rate and rhythm Pulmonary: Clear to ausculation bilaterally Abdomen: Gravid, non-tender Extremities: Warm and well perfused Speculum Exam: deferred Cervix: Unable to examine x2 examiners. Monitoring: Baseline: 140 bpm, Variability: Moderate, Accelerations: Present and Decelerations: None Uterine Activity: Rare contractions Interpretation: Reactive Labs: Lab Results Component Value Date ABORH O Positive 11/17/2024 IDCOOMB Negative 11/17/2024 [id number] Nonreactive 02/16/2025 LABRPR Nonreactive 02/16/2025 RUBELIGG Reactive 11/17/2024 HEPBSAG Nonreactive 11/17/2024 VZVIGG Nonreactive (A) 11/17/2024 Assessment and Plan Admit to [facility]U for further monitoring for cervical change and to get Betamethasone injections. She should have daily NST's and to consider tocolysis if she has any cervical change. Plan discussed with Dr. Veloz. Rose Marie Wyman NP 04/27/25 Progress Notes - Office Visi t - 04/27/2025 - GA:34w3d 04/27/2025 - 34w3d - Luz Veloz MD +FM, -VB/LOF. Has been having more luis monge contractions, rectal pressure, several times per day (~10 times per day). Went to [facility], was having sharp upper abdominal pain that was 7-8/10. Symptoms have improved since then. Did not have cervical exam then. SVE 02/17/-4, head low. Recommended patient present to [facility] for repeat exam, likely admission, BMZ, tocolytics. GBS collected. Progress Notes - Hospital En counter - 04/19/2025 - GA:33w2d 04/19/2025 - 33w2d - Rose Marie Roldan NP Monitoring: Baseline: 135 bpm, Variability: Moderate, Accelerations: Present and Decelerations: None Uterine Activity: Rare Interpretation: Reactive Rose Marie Wyman NP 04/19/2025 5:52 PM 04/19/2025 - 33w2d - Rose Marie Roldan NP Obstetrics H&P Chief Complaint: Abdominal Pain earlier today Estimated Date of Delivery: 06/05/25 Provider: Jonathan Jiménez HPI: Anabelle Grijalva is a 30 y.o. female at 33w2d gestation, dated by L=1st trimester ultrasound at 2:30 she had some upper abdominal pain at home and was concerned. She thinks it might have been gas. She didn't take anything at home yet. 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 History of Abnormal Pap: NILM 10/2024 STD History: None Past Medical History: Diagnosis Date Carpal tunnel syndrome during Chronic hypertension: None Diabetes: No Asthma: No History reviewed. No pertinent surgical history. Social History Tobacco Use Smoking status: Never Smokeless tobacco: None Substance and Sexual Activity Drug use: Not Currently Types: Alcohol Sexual activity: Yes Partners: Male Alcohol Use: Not on file Support System: Supported by her Nilda Safe at home: Yes family history includes Diabetes in her father and mother; Hypertension in her father and mother; Kidney disease in her father; Leukemia in her sister; No Known Problems in her brother; Sickle cell trait in her sister. Family history of bleeding or clotting disorders: Yes, patient's sister has sickle-cell trait Family history of defects, genetic disorders, or developmental delay: No No Known Allergies HOME MEDICATIONS : aspirin 81 mg enteric coated tablet [id number] 6-dha 30 mg iron-1mg -200 mg capsule Review of Sys: Negative except per HPI Vitals: Temp: [36.7 C (98.1 F)] 36.7 C (98.1 F) Pulse: [104] 104 Resp: [18] 18 BP: (127)/(75) 127/75 Physical Exam: General: NAD, mood appropriate Cardiovascular: Regular rate and rhythm Pulmonary: Clear to ausculation bilaterally Abdomen: Gravid, non-tender Extremities: Warm and well perfused Speculum Exam: deferred Cervix: deferred Monitoring: Baseline: 135 bpm, Variability: Moderate, Accelerations: Present and Decelerations: None Uterine Activity: Rare Interpretation: Reactive Ultrasound: Not indicated today Labs: Lab Results Component Value Date ABORH O Positive 11/17/2024 IDCOOMB Negative 11/17/2024 [id number] Nonreactive 02/16/2025 LABRPR Nonreactive 02/16/2025 RUBELIGG Reactive 11/17/2024 HEPBSAG Nonreactive 11/17/2024 VZVIGG Nonreactive (A) 11/17/2024 Assessment and Plan #Abdominal Pain Having rare contractions Feeling better after Simethicone-likely gas Abdominal exam was benign Talked with her about not eating gassy food and using gas-x as needed at home She is feeling very reassured and would like to be discharged home Has an appointment on 04/27, she is aware and will be there Plan discussed with Dr. Eisenberg. OK to discharge home with precautions. Rose Marie Wyman NP 04/19/25 Progress Notes - Office Visi t - 04/14/2025 - GA:32w4d 04/14/2025 - 32w4d - Stefanie Bai NP No concerns Working fulltime Sleeping well Advised to monitor for more consistent movement, seek care for sudden decrease Seek care for symptoms suspicious for preeclampsia or PTL: CHRISTIANSON w blurred Vision, sudden swelling, RUQ pain, VB. LOF, consistent abdominal pain that is not Motivated by movement, sudden change in vaginal secretions Location and appropriate use of [facility] Patient portal messages are for non urgent concerns Cosigned by Luz Veloz MD at 04/14/2025 1:52 PM CDT Associated attestation - Luz Veloz MD - 04/14/2025 1:52 PM CDT Images from the original note were not included. I have reviewed Stefanie's note and agree with the current plan. Luz Veloz MD [facility] [address] Rubin Joshua [address] [place] [id number] Progress Notes - Office Visi t - 03/30/2025 - GA:30w3d 03/30/2025 - 30w3d - Luz Veloz MD This patient has verbally consented to recording this visit in order to utilize AI technology in generating this note. Subjective: History of Present Illness She has been experiencing severe carpal tunnel syndrome in her hands for the past two months. Despite wearing a brace consistently, she has not found relief. She has met with a hand surgeon and is considering steroid injections for symptom relief. She is currently and experiencing pelvic pain that resolves with morning stretches. She describes mild period-like cramping that occurred yesterday and again this morning, which subsided quickly. No bleeding or significant pain that impairs her daily activities. She mentions that her baby has periods of increased movement followed by slower activity, which sometimes causes her concern. She has completed a birthing class and is scheduled for a class this weekend. She plans to deliver at [place] and is considering an epidural. Labor precautions discussed. [facility] US scheduled 04/01/25, reminded patient of appointment. Progress Notes - Office Visi t - 03/16/2025 - GA:28w3d 03/16/2025 - 28w3d - Luz Veloz MD This patient has verbally consented to recording this visit in order to utilize AI technology in generating this note. Subjective: History of Present Illness Anabelle Grijalva is a 30-year-old female who presents for a routine visit at 28 weeks of gestation. She experiences regular movements and has no persistent headaches or symptoms indicative of preeclampsia. Mild swelling is noted in her feet, more pronounced as the day progresses, with the left ankle slightly larger than the right, which she attributes to her usual anatomy. She is aware that high sodium intake, processed foods, and prolonged sitting or standing can exacerbate swelling. No vaginal fluid leakage is reported, but she notes a pinkish tint in her vaginal discharge yesterday morning with 1st urination of the morning, not associated with sexual activity, with no further occurrences, no blood or spotting noted in underwear. No urinary symptoms such as pain or discomfort are present, but there is an increase in urinary frequency, described as a gradual buildup rather than a sudden change. She inquires about the safety of cortisone injections during for her carpal tunnel syndrome and discusses experiencing sciatica, reassured that a 1 time injection is not likely to cause long-term problems with the baby Recommended lower back exercises helpful for sciatica related to , if this is ineffective consider physical therapy Labor and preeclampsia precautions discussed. Signs of PTL discussed, + FM active, report any sudden decrease, pt verb understanding Tdap given today. Vaginal exam: Genitalia without lesions, vaginal mucosa pink moist scant amount of white mucoid discharge os appears closed no evidence of vaginal bleeding Advised to continue to observe come in within 24 hours if she notices more bleeding or spotting Anabelle was seen today for routine visit. Diagnoses and all orders for this visit: WEOB: pt of [place] 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 WEOB: Varicella nonimmune WEOB: BMI 34 at IOB - US Ob Follow Up Gross hematuria - Urine culture Urine, clean voided; Future - Urinalysis reflex to microscopic; Future care, first in third trimester - Urine culture Urine, clean voided; Future - Urinalysis reflex to microscopic; Future Other orders - Tdap vaccine greater than or equal to 7yo IM Growth US ordered for next appointment. Ordered Progress Notes - Hospital En counter - 02/24/2025 - GA:25w4d 02/24/2025 - - Nickie Silver NP TETE Grijalva is a 29 y.o. female female at 25w4d gestation S: Presents for decreased movement. O: Vital signs: BP 128/68 Pulse 100 Temp 36.5 C (97.7 F) (Oral) Resp 18 LMP 08/29/2024 (Exact Date) SpO2 99% Monitoring: Baseline: 145 bpm, Variability: Moderate, Accelerations: Present and Decelerations: age appropriate variables Uterine Activity: No contractions seen on toco Interpretation: Reactive Diagnostic Review Lab Results Component Value Date WBC 8.5 02/16/2025 HGB 12.8 02/16/2025 HCT 39.0 02/16/2025 MCV 89.2 02/16/2025 LABPLAT 218 02/16/2025 A/P: Anabelle Grijalva is a 29 y.o. female female at 25w4d gestation #FWB - NST reactive Pt feeling movement Pt feels reassured Plan of care discussed with . Ok for discharge. Disposition- Discharge to home with follow up as scheduled Nickie Leyva NP Progress Notes - Office Visi t - 02/16/2025 - GA:24w3d 02/16/2025 - - Stefanie Bai, JACOB Has numbness in hands, more first in morning: recommended wrist splints Advised to monitor for more consistent movement, seek care for sudden decrease Seek care for symptoms suspicious for preeclampsia or PTL: CHRISTIANSON w blurred Vision, sudden swelling, RUQ pain, VB. LOF, consistent abdominal pain that is not Motivated by movement, sudden change in vaginal secretions Location and appropriate use of [facility] Patient portal messages are for non urgent concerns Getting glucose today, Cosigned by Luz Veloz MD at 02/16/2025 12:01 PM CDT Associated attestation - Luz Veloz MD - 02/16/2025 12:01 PM CDT Images from the original note were not included. I have reviewed Stefanie's note and agree with the current plan. Luz Veloz MD [facility] [address] [place], [place] [id number] Progress Notes - Office Visi t - 01/19/2025 - GA:20w3d 01/19/2025 - 20w3d - Luz Veloz MD +FM, -VB/LOF/Ctx. Feeling more pelvic pressure now, discuss stretching/ yoga when able. Provided with some exercises. Attended genetic counseling visit, declined amniocentesis in the setting of patient and partner with SMA carrier status. Defer until pediatric examination . Reminded of anatomy ultrasound scheduled on 01/21/2025. Discuss glucose tolerance test at next visit, provided with informational handout for high-protein snack. NOSTIC CARDIAC SONOGRAPHER Progress Notes - Clinical Glass pport - 01/15/2025 - GA:19w6d 01/15/2025 - 19w6d - Essence Alvarado CGC Genetic counseling consult Referring OB provider: Luz Veloz MD Ms. Grijalva was [facility] for genetic consultation to discuss her spinal muscular atrophy carrier screen results. She was accompanied by her , Scooter Grijalva. History: Ms. Grijalva is a 29-year-old female with a gestational age of 19w6d based on an HAI of . She will be 30 years old at delivery. She denies any exposures to known teratogenic agents. She had NIPT screening via the [facility] test by Friday. Results were low risk for aneuploidy. Ms. Grijalva had spinal muscular atrophy screening and was found to have an increased risk of being a silent carrier (2+0). Her carrier screen was negative for cystic fibrosis, Duchenne muscular dystrophy, and Fragile X. Mr. Grijalva ( ) had carrier screening for spinal muscular atrophy and was also found to have an increased risk of being a silent carrier (2+0). Family Health History: The couple denied a family history of defects, intellectual disabilities/Autism and known genetic conditions. Consanguinity and known Hinduism ancestry were both denied. The patient reported her ethnic background as . She reported her partner's ethnic background as . Discussion: Ms. Grijalva was counseled regarding spinal muscular atrophy (SMA). We reviewed the clinical features of SMA. She understands that there are different types of SMA with different ages of onset but that the common type has early onset with progression and in green chain offbearer. Some types have an older age of onset with survival into adulthood. When SMA is diagnosed prenatally, we cannot predict the severity or age of onset. SMA is an autosomal recessive condition caused by having two deleted copies of the SMN1 gene. Carriers typically have one deleted SMN1 gene copy on one chromosome and a normal gene copy on the other chromosome. However, 5% of carriers have two normal SMN1 gene copies on one chromosome and zero gene copies on the other chromosome. This is called being silent carrier (or 2+0 carrier). Carrier screening will not detect silent carriers. A specific SMN1 sequence variant, [id number], is associated with silent carrier status. When this sequence variant is found in conjunction with two SMN1 gene copies, the individual has an increased risk of being a silent carrier. Ms. Grijalva's SMA carrier screen results show that she has two SMN1 copies with the [id number] sequence variant. Based on this result and her ethnicity, she has a 1:34 chance of being a silent (2+0) SMA carrier. Mr. Grijalva also has two SMN1 copies with the [id number] sequence variant. Based on this result and his ethnicity, he has a 1:34 chance of being a silent (2+0) SMA carrier. Given these results, the risk for SMA in this is 1:4,624. They understand that if they both are truly silent carriers, then the risk for SMA in this is 1:4. We discussed diagnostic testing via amniocentesis. Ms. Grijalva was counseled regarding the risks, benefits, and limitations of this procedure. cells from the amniotic fluid can be tested to determine SMN1 gene copy number. This testing can determine if the fetus has zero gene copies (affected), one gene copy (carrier), or two gene copies (unaffected and either silent carrier or non-carrier). karyotype would also be performed. SMA is also detected by Screening in [place]. Plan: Ms. Grijalva declined amniocentesis. Recommendations and Further Testing: Ultrasound is recommended at 20 weeks gestation to evaluate growth and anatomy. Ms. Grijalva will follow up with her child's pit inspector regarding Screening results. These should be delivered to the pit inspector by 1-2 weeks after delivery. Thank you for the opportunity to participate in the care of Ms. Grijalva. If you need further information regarding this visit, please feel free to contact me at [phone]. Sincerely, Essence Alvarado MS, [facility] [place] Certified genetic counselor Total time spent counselin minutes. Electronically signed by Essence Alvarado [facility] [place] at 01/15/2025 3:29 PM DIAGNOSTIC CARDIAC SONOGRAPHER Progress Notes - Office Visi t - 12/29/2024 - GA:17w3d 12/29/2024 - 17w3d - Luz Veloz MD +FM (a little bit, 2-3 times every few days), -VB/LOF/Ctx. Having some trouble sleeping, declines doxylamine at this time. DrewLatasha's partner testing for SMA has still not come back, we will alert patient as soon as results are available. Anatomy US 01/21/25, reminded pt of appointment. NOSTIC CARDIAC SONOGRAPHER Progress Notes - Office Visi t - 12/16/2024 - GA:15w4d 12/16/2024 - 15w4d - Luz Veloz MD -FM (feeling some gas motions, wondering if it's movement), -VB/LOF/Ctx. Has had some mild cramping. Nausea has resolved. Anatomy US ordered, provided # for scheduling. Father testing for SMA carrier performed today. Urine culture ordered today. NOSTIC CARDIAC SONOGRAPHER Progress Notes - Office Visi t - 11/17/2024 - GA:[id number] 11/17/2024 - - Stefanie Bai NP The patient is here today for her initial OB visit with me. I reviewed her history in detail with her. She was given her [facility] Welcome bag and the contents were reviewed. I reviewed how to contact us during business hours and through the exchange after hours. We reviewed her PL and hx and her specific risk factors for and discussed these. SEE BOLDED BELOW DESIRES TO BE WITH DR VELOZ H/o GDM: No HTN in risk evaluation tool: Conceived by IVF: No Hx cHTN: Yes, borderline Hx GHTN,pre-eclampsia/eclampsia/HELLP: No Fhx pre-e in first degree relative: No Previous SGA : No Age 35+ : 29 y.o. Nullip: YES Multifetal: no T1 or T2 DM: no Renal disease: no Autiimmune dz (SLE, APLS) no Obesity: Body mass index is 34.72 kg/m . More than 10 years since last delivery: no AA race: YES Risk factors for preeclampsia and hypertensive disorders in addressed. Taking aspirin has been shown to reduce the incidence of preeclampsia in ; especially when started prior to 16 weeks for at risk pregnancies. The U.[place]. preventative Services task Force identifies ommon high risk risk factors to include a history of prior preeclampsia, type 1 or type 2 diabetes, pre-existing chronic hypertension, autoimmune diseases such as lupus or antiphospholipid syndrome, multi and renal disease. Moderate risk risk factors includes prior adverse Ob outcomes such as low weight infant or an inter interval greater than 10 years, a BMI greater than 30, nulliparity, race, low socioeconomic status, age greater than or equal to 35 years and a family history of preeclampsia in a first-degree relative. We generally recommend starting aspirin for anyone with a high risk indication or with 2 or more moderate risk indications. I recommend starting aspirin prior to 16 weeks with a dose of 81 mg a day for patient's identified to benefit from aspirin. Known bleeding risks associated with taking aspirin are minimal and considered to be less than the benefit from taking it for the above indications. We reviewed this is not a guaranteed prevention of preeclampsia and that we will continue to monitor throughout the for evidence of evolving hypertensive disorders and that I recommend this patient start ASA 81mg qd. FIGO recommends if BMI <40 take 100mg and if BMI >40 take 150mg USPSTF and ACOG recommend 81mg before 16 weeks with no BMI based dosing. We discussed genetic screening for the fetus and carrier screening. She elects YES WITH GENDER We reviewed first-trimester expectations of . Signs and symptoms of a miscarriage were reviewed. Reviewed [id number] options for nausea treatment and what to call us for to discuss prescription medication for nausea. She will take a daily vitamin. We reviewed exercise parameters angles during as her weight was evaluated and addressed as needed. We reviewed first-trimester precautions such as avoiding alcohol, avoiding suanas and extreme heat, avoiding raw or undercooked meats and non pasteurized dairy products. We reviewed COVID-19 precautions and encouraged masking and avoiding growds and how to contact us if concern for exposure or infection. We discussed scheduling ultrasounds indicated during her and how she will go about scheduling those as well as standard blood tests. We reviewed the general time line for OB visits during . Ample opportunity to ask questions was given Cosigned by Luz Veloz MD at 11/18/2024 4:05 PM DIAGNOSTIC CARDIAC SONOGRAPHER NOSTIC CARDIAC SONOGRAPHER NOSTIC CARDIAC SONOGRAPHER Associated attestation - Luz Veloz MD - 11/18/2024 4:05 PM DIAGNOSTIC CARDIAC SONOGRAPHER Images from the original note were not included. I have reviewed Stefanie's note and agree with the current plan. Luz Veloz MD [facility] [address] [place] [address] Last Filed Vital Signs Vital Sign Reading [...] 05/26/2025 2:11 PM CDT Plan of Treatment Health Maintenance Due Date Last Done Comments Regular Well Visit/Exam 18-64 2014 Varicella Vaccines (2 of 2 - 13+ 2-dose series) 06/26/2025 05/29/2025 Influenza Vaccine (#1) 2025 10/20/2024 Cervical Cancer Screening 11/17/2025 11/17/2024 Depression Screening 03/30/2026 03/30/2025 DTaP/Tdap/Td Vaccine (2 - Td or Tdap) 03/16/2035 03/16/2025 Hepatitis B Screening Completed 11/17/2024 Hepatitis C Screening Completed 11/17/2024 HPV Vaccines Aged Out No longer eligi ble based on patient's age to complete this topic Pneumococcal vaccine <65 Aged Out No longer eligible based on patient's age to complete this topic Procedures Procedure Name Priority Date/Time Associated Diagnosis Comments POCT GLUCOSE DEVICE Routine 05/28/2025 6 :39 AM CDT MD AN PROCEDURE PLACEHOLDER Routine 05/27/2025 10:17 AM [...] 04/27/2025 11:27 AM CDT WEOB: pt of Ghazala POCT URINALYSIS (CLINITEK) Routine 04/19/2025 5:11 PM CDT US OB FOLLOW UP Schedule Routine, Read Routine (OP Routine) 04/01/2025 2:51 PM CDT Obesity in URINE CULTURE Routine 03/16/2025 2:20 PM CDT Gross hematuria care, first in third trimester HEPATITIS C ANTIBODY Routine 11/17/2024 3:58 PM DIAGNOSTIC CARDIAC SONOGRAPHER care in first trimester PAP WITH REFLEX TO HIGH RISK HPV Routine 11/17/2024 9:31 AM DIAGNOSTIC CARDIAC SONOGRAPHER Encounter for Papanicolaou smear for cervical cancer screening from Last 3 Months or Most Recently Relevant to Health Maintenance Results * POCT glucose (05/28/2025 6:39 AM CDT) Glucose, POC 82 70 - 199 mg/dL Blood 05/28/2025 6:39 AM CDT 05/28/2025 6:39 AM CDT us Marielle Wakefield MD LAB POCT ORDERABLES - DEVICE Final Result [facility] [place] [address] * MD AN PROCEDURE PLACEHOLDER (05/27/2025 10:17 AM CDT) Narrative Priti Girard MD - 05/27/2025 10:17 AM CDT Priti Girard MD 05/27/2025 10:18 AM Epidural Block Patient location: L&D Start time: 05/27/2025 10:09 AM End time: 05/27/2025 10:20 AM Reason for block: labor analgesia Staff: Supervising provider: Priti Girard MD Placed by: IZA: Candy Holly CRNA Procedure prep: Preprocedure checklist: [...] patient tolerated procedure well with no complications us Priti Girard MD ANESTHESIA ORDERABLES Final Result [...] 5:51 PM CDT 05/26/2025 5:59 PM CDT us Nickie Leyva NP LAB BLOOD ORDERABL ES Final Result [facility] Department [place] [address] * Differential, auto (05/26/2025 5:51 PM CDT) Neutrophil abs 5.42 1.50 - 6.50 K/cumm Imm gran abs 0.04 0.00 - 0.10 K/cumm [facility] Lymphocyte abs 1.07 0.80 - 3.30 K/cumm [facility] Monocyte abs 0.51 0.20 - 0.80 K/cumm [facility] Eosinophil abs 0.05 0.00 - 0.50 K/cumm [facility] Basophil abs 0.02 0.00 - 0.10 K/cumm [facility] Neutrophil pct 76.2 % [facility] Comment: Interpretive Data Percent cell count reference ranges are not reported, since discordance with absolute values may lead to misinterpretation of CBC data. Current Interpretive Data was last revised on 2018. Imm gran pct 0.6 % [facility] Comment: Interpretive Data Percent cell count reference ranges are not reported, since discordance with absolute values may lead to misinterpretation of CBC data. Current Interpretive Data was last revised on 2018. Lymphocyte pct 15.0 % [facility] Comment: Interpretive Data Percent cell count reference ranges are not reported, since discordance with absolute values may lead to misinterpretation of CBC data. Current Interpretive Data was last revised on 2018. Monocyte pct 7.2 % [facility] Comment: Interpretive Data Percent cell count reference ranges are not reported, since discordance with absolute values may lead to misinterpretation of CBC data. Current Interpretive Data was last revised on 2018. Eosinophil pct 0.7 % [facility] Comment: Interpretive Data Percent cell count reference ranges are not reported, since discordance with absolute values may lead to misinterpretation of CBC data. Current Interpretive Data was last revised on 2018. Basophil pct 0.3 % [facility] Comment: Interpretive Data Percent cell count reference ranges are not reported, since discordance with absolute values may lead to misinterpretation of CBC data. Current Interpretive Data was last revised on 2018. Blood 05/26/2025 5:51 PM CDT 05/26/2025 5:59 PM CDT Nickie Leyva NP LAB BLOOD ORDERABL ES Final Result [facility] Department [place] [address] * CBC with auto differential (05/26/2025 5:51 PM CDT) [facility] WBC 7.11 3.80 - 9.90 K/cumm Hgb 13.1 11.9 - 15.5 g/dL [facility] Hct 39.3 35.6 - 45.5 % [facility] Plt 191 150 - 400 K/cumm [facility] MPV 10.5 9.1 - 12.3 fL [facility] RBC 4.72 3.90 - 5.20 M/cumm [facility] MCV 83.3 81.3 - 96.4 fL [facility] MCH 27.8 27.1 - 33.3 pg [facility] MCHC 33.3 32.3 - 35.7 g/dL [facility] RDW CV 14.7 11.1 - 14.9 % [facility] RDW SD 44.6 35.7 - 48.1 fL [facility] NRBC abs 0.00 0.00 - 0.01 K/cumm [facility] Blood 05/26/2025 5:51 PM CDT 05/26/2025 5:59 PM CDT Nickie Leyva NP LAB BLOOD ORDERABL ES Final Result [facility] Department [place] [address] * RPR Blood (05/26/2025 5:51 PM CDT) [facility] RPR Nonreactive Nonreactive Blood 05/26/2025 5:51 PM CDT 05/26/2025 5:59 PM CDT Nickie Leyva NP LAB MICROBIOLOGY - GENERAL ORDERABLES Final Result Performing Organization Address [facility] [place] [place] [address] * Type and screen (05/26/2025 5:51 PM CDT) [facility] Juanjo, indirect Negative ABO Rh O Positive [facility] Blood 05/26/2025 5:51 PM CDT 05/26/2025 6:18 PM CDT Narrative [facility] - 05/26/2025 7:11 PM CDT Has the patient had Daratumumab or Isatuximab in the past 6 months?->Unknown Nickie Leyva NP LAB BLOOD BANK CARLOS A T ORDERABLES Final Result Performing Organization Address [facility] de Phone Number [facility] [place] [address] * (ABNORMAL) Comprehensive metabolic panel (05/26/2025 5:51 PM CDT) [facility] Sodium 131(L) 135 - 145 mmol/L Potassium, pl 3.7 3.3 - 4.9 mmol/L [facility] Chloride 102 97 - 110 mmol/L [facility] CO2 22 22 - 32 mmol/L [facility] Anion gap 7 2 - 15 mmol/L [facility] BUN 9 6 - 25 mg/dL [facility] Creatinine 0.62 0.60 - 1.10 mg/dL [facility] Glucose 113 70 - 199 mg/dL [facility] Comment: Interpretive Data Fasting glucose >/= 126 [...] 2022. Calcium 9.6 8.5 - 10.3 mg/dL [facility] Bilirubin, total 0.2 0.1 - 1.2 mg/dL [facility] Protein, pl 6.6 6.5 - 8.5 g/dL [facility] Albumin 3.4(L) 3.5 - 5.0 g/dL [facility] Alk phos 239(H) 40 - 130 Units/L [facility] ALT 9 7 - 45 Units/L [facility] AST 18 10 - 45 Units/L [facility] Blood 05/26/2025 5:51 PM CDT 05/26/2025 5:59 PM CDT Nickie Leyva NP LAB BLOOD ORDERABL ES Final Result [facility] Department [place] [address] * (ABNORMAL) POCT urinalysis (Clinitek) (05/26/2025 2:10 PM CDT) Color, ur, POC Yellow Yellow Clarity, UA, POC Clear Clear [facility] Glucose, ur, POC Negative Negative [facility] Bilirubin, ur, POC Negative Negative [facility] Ketones, ur, POC Negative Negative [facility] Specific gravity, ur, POC 1.015 1.010 - 1.025 [facility] Blood, ur, POC Trace(A) Negative [facility] pH, ur, POC 7.0 [facility] Comment: Interpretive Data Urine pH is affected by diet, medications, systemic acid-base disturbances, and renal tubular function. pH may affect urinary stone formation. For example, urine pH below 6.0 may help reduce the tendency for calcium phosphate stones and pH greater than 6.0 may reduce the tendency for uric acid stone formation. Source: [employer]. Last Revised Date: 12-06-2017 Protein, ur, POC Negative Negative [facility] Urobilinogen, ur, POC 0.2 mg/dL mg/dL [facility] Nitrites, ur, POC Negative Negative [facility] Leukocyte esterase, ur, POC Trace(A) Negative [facility] Urine 05/26/2025 2:10 PM CDT 05/26/2025 2:10 PM CDT Marielle Wakefield MD LAB POCT ORDERABLES - DEVICE Final Result [facility] Department [place] [address] * US Ob Follow Up (04/28/2025 10:05 [...] growth is normal - size is AGA Luz Veloz MD IMG OB US PROCEDURES Nannette l Result * Urine culture Urine, clean voided (04/27/2025 10:38 PM CDT) Report Final Report: Less than 100,000 colonies/mL (clinically insignificant growth based on current clinical standards) Organism (CLINICALLY INSIGNIFICANT GROWTH [facility] Urine, clean voided 04/27/2025 10:38 PM CDT 04/27/2025 10:45 PM CDT Narrative [facility] - 04/29/2025 11:00 AM CDT Indications for Culture:-> patient Testing performed by [facility] Microbiology Laboratory ([phone]) us Nohemi Valentin MD LAB MICROBIOLOGY - GENERAL ORDERABLES Final Result Performing Organization Address City/[facility]/ZIP Co de Phone Number [facility] Department [place] [address] * Check Sample (04/27/2025 10:26 PM CDT) ABO Rh O Positive [facility] HCLL OTHER 04/27/2025 10:2 6 PM CDT 04/27/2025 10:52 PM CDT us Luz Veloz MD LAB BLOOD ORDERABLES Nannette l Result Performing Organization Address [facility] Co de Phone Number [facility] Department [place] [address] [facility] * (ABNORMAL) Urinalysis reflex to microscopic and culture Urine, clean voided (04/27/2025 8:55 PM CDT) Color, ur Straw Yellow Clarity, ur Clear Clear [facility] Specific gravity, ur 1.015 1.003 - 1.030 [facility] pH, urine 6.5 [facility] Comment: Interpretive Data U rine pH is affected by diet, medications, systemic acid-base disturbances, and renal tubular function. pH may affect urinary stone formation. For example, urine pH below 6.0 may help reduce the tendency for calcium phosphate stones and pH greater than 6.0 may reduce the tendency for uric acid stone formation. Source: [facility] [employer] Current Interpretive Data was last revised on 2017 Protein, ur ql Negative Negative [facility] Glucose, ur ql Negative Negative [facility] Ketones, ur 2+(A) Negative [facility] Bilirubin, ur Negative Negative [facility] Blood, ur Negative Negative [facility] Urobilinogen, ur <2.0 <2.0 mg/dL [facility] Nitrite, ur Negative Negative [facility] Leukocyte esterase, ur Negative Negative [facility] Urine, clean voided 04/27/2025 8:55 PM CDT 04/27/2025 9:08 PM CDT Luz Veloz MD LAB MICROBIOLOGY - GENERA L ORDERABLES Final Result Performing Organization Address [facility] de Phone Number [facility] [place] [place] [address] * HIV 1/2 Antibody plus p24 Antigen Blood (04/27/2025 8:44 PM CDT) Pathologist [facility] HIV 1/2 ab + p24 ag Nonreactive Nonreactive Comment:Nonreactive for HIV- 1 antigen and HIV-1/HIV-2 antibodies. No laboratory evidence of HIV infection. If acute HIV infection is suspected, consider testing for HIV-1 RNA. Current interpretive data was last revised on 22. Blood 04/27/2025 8:44 PM CDT 04/27/2025 8:55 PM CDT Luz Veloz MD LAB MICROBIOLOGY - GENERA L ORDERABLES Final Result Performing Organization Address [facility] de Phone Number [facility] [address] * RPR Blood (04/27/2025 8:44 PM CDT) Pathologist [facility] RPR Nonreactive Nonreactive Blood 04/27/2025 8:44 PM CDT 04/27/2025 8:55 PM CDT Luz Veloz MD LAB MICROBIOLOGY - GENERA L ORDERABLES Final Result Performing Organization Address [facility] [place] [place] [address] * CBC without differential (04/27/2025 8:44 PM CDT) Pathologist [facility] WBC 8.59 3.80 - 9.90 K/cumm Hgb 12.4 11.9 - 15.5 g/dL [facility] Hct 35.6 35.6 - 45.5 % [facility] Plt 179 150 - 400 K/cumm [facility] MPV 10.3 9.1 - 12.3 fL [facility] RBC 4.33 3.90 - 5.20 M/cumm [facility] MCV 82.2 81.3 - 96.4 fL [facility] MCH 28.6 27.1 - 33.3 pg [facility] MCHC 34.8 32.3 - 35.7 g/dL [facility] RDW CV 13.8 11.1 - 14.9 % [facility] RDW SD 41.1 35.7 - 48.1 fL [facility] NRBC abs 0.00 0.00 - 0.01 K/cumm [facility] Blood 04/27/2025 8:44 PM CDT 04/27/2025 8:55 PM CDT Uma Carrington NP LAB BLOOD ORDERABLES Final Result Performing Organization Address City/[facility]/ZIP Co de Phone Number [facility] [place] [address] * Type and screen (04/27/2025 8:44 PM CDT) Juanjo, indirect Negative ABO Rh O Positive [facility] Blood 04/27/2025 8:44 PM CDT 04/27/2025 9:15 PM CDT Narrative [facility] - 04/27/2025 11:04 PM CDT Has the patient had Daratumumab or Isatuximab in the past 6 months?->Unknown Luz Veloz MD LAB BLOOD BANK TEST ORDER MAY Final Result [facility] [place] [address] * (ABNORMAL) POCT urinalysis (Clinitek) (04/27/2025 1:39 PM CDT) Color, ur, POC Yellow Yellow Clarity, UA, POC Clear Clear [facility] Glucose, ur, POC Negative Negative [facility] Bilirubin, ur, POC Negative Negative [facility] Ketones, ur, POC Negative Negative [facility] Specific gravity, ur, POC 1.010 1.010 - 1.025 [facility] Blood, ur, POC Trace(A) Negative [facility] pH, ur, POC 7.0 [facility] Comment: Interpretive Data Urine pH is affected by diet, medications, systemic acid-base disturbances, and renal tubular function. pH may affect urinary stone formation. For example, urine pH below 6.0 may help reduce the tendency for calcium phosphate stones and pH greater than 6.0 may reduce the tendency for uric acid stone formation. Source: [employer]. Last Revised Date: 12-06-2017 Protein, ur, POC Negative Negative [facility] Urobilinogen, ur, POC 0.2 mg/dL mg/dL [facility] Nitrites, ur, POC Negative Negative [facility] Leukocyte esterase, ur, POC 1+(A) Negative [facility] Urine 04/27/2025 1:39 PM CDT 04/27/2025 1:39 PM CDT Luz Veloz MD LAB POCT ORDERABLES - DEV ICE Final Result [facility] Department [place] [address] * Group B streptococcal culture Vaginal/Rectal (04/27/2025 11:27 AM CDT) Report Final Report: Negative Vaginal/Rectal 04/27/2025 11 :27 AM CDT 04/27/2025 4:37 PM CDT Narrative [facility] - 04/30/2025 12:31 PM CDT Testing performed by [facility]biology Laboratory ([phone]). us Luz Veloz MD LAB MICROBIOLOGY - GENERA L ORDERABLES Final Result [facility] Department [place] [address] * (ABNORMAL) POCT urinalysis (Clinitek) (04/19/2025 5:11 PM CDT) Color, ur, POC Yellow Yellow Clarity, UA, POC Clear Clear [facility] Glucose, ur, POC Negative Negative [facility] Bilirubin, ur, POC Negative Negative [facility] Ketones, ur, POC 3+(A) Negative [facility] Specific gravity, ur, POC 1.020 1.010 - 1.025 [facility] Blood, ur, POC Negative Negative [facility] pH, ur, POC 7.0 [facility] Comment: Interpretive Data Urine pH is affected by diet, medications, systemic acid-base disturbances, and renal tubular function. pH may affect urinary stone formation. For example, urine pH below 6.0 may help reduce the tendency for calcium phosphate stones and pH greater than 6.0 may reduce the tendency for uric acid stone formation. Source: [facility] [employer]. Last Revised Date: 12-06-2017 Protein, ur, POC Negative Negative [facility] Urobilinogen, ur, POC 0.2 mg/dL mg/dL [facility] Nitrites, ur, POC Negative Negative [facility] Leukocyte esterase, ur, POC 1+(A) Negative [facility] Urine 04/19/2025 5:11 PM CDT 04/19/2025 5:11 PM CDT us Charisse Eisenberg MD LAB POCT ORDERABLES - ANGEL CE Final Result Performing Organization Address City/[facility]/ZIP Co de Phone Number [facility] Department [place] [address] * US Ob Follow Up (04/01/2025 2:51 [...] MILAGRO, 15.7 cm. Narrative Procedure Note Luz Veloz MD - 04/02/2025 IMPRESSION: 30w 5d IUP for evaluation of growth AGA growth pattern, EFW 3 lb 14 oz, 62% Vertex presentation. FHR 150 bpm Normal MILAGRO, 15.7 cm. Luz Veloz MD IMG OB US PROCEDURES Nannette l Result * Urine culture Urine, clean voided (03/16/2025 2:20 PM CDT) Report Final Report: Less than 100,000 colonies/mL (clinically insignificant growth based on current clinical standards) Organism (CLINICALLY INSIGNIFICANT GROWTH [facility] Urine, clean voided 03/16/2025 2:20 PM CDT 03/16/2025 2:43 PM CDT Narrative [facility] - 03/17/2025 5:12 PM CDT Testing performed by [facility] Microbiology Laboratory ([phone]) us Stefanie Bai NP LAB MICROBIOLOGY - GENERAL O RDERABLES Final Result [facility] [place] [address] * Hepatitis C antibody Blood (11/17/2024 3:58 PM DIAGNOSTIC CARDIAC SONOGRAPHER) Hep C Ab Nonreactive Nonreactive Comment:Antibodies to HCV no t detected. Does NOT exclude the possibility of recent exposure to HCV. Current interpretive data was last revised on 22 Blood 11/17/2024 3:58 PM DIAGNOSTIC CARDIAC SONOGRAPHER 11/17/2024 6:41 PM DIAGNOSTIC CARDIAC SONOGRAPHER us Stefanie Bai TRAY LINE SUPERVISOR LAB MICROBIOLOGY - GENERAL O RDERAJAMAL Final Result [facility]A [facility] Department [place] [address] * Pap with reflex to High Risk HPV and Genotyping (Cytology Component) (11/17/2024 9:31 AM DIAGNOSTIC CARDIAC SONOGRAPHER) Thin prep (Pap test) 11/17/2024 9:31 AM DIAGNOSTIC CARDIAC SONOGRAPHER 11/18/2024 9:31 AM DIAGNOSTIC CARDIAC SONOGRAPHER Narrative PATHOLOGY CH - 11/21/2024 9:25 AM DIAGNOSTIC CARDIAC SONOGRAPHER [facility] Department of Pathology [address] [place], [place] [id number] Final Report Note to Patients: This report [...] the details. Patient Name: ANABELLE GRIJALVA Address: [address] [place] [address] Gender: F : 1995 (Age: 29) Service: Location: N : [id number] [facility] #: [id number] Patient Type: SPECIMEN Taken: 11/17/2024 Received: 11/18/2024 Accessioned:: 11/18/2024 Reported: 11/21/2024 Physician(s): Stefanie Bai, RN, TRAY LINE SUPERVISOR Stefanie Bai, RN, TRAY LINE SUPERVISOR Diagnosis: SOURCE OF SPECIMEN Imaged Thinprep Pap Test w/ Reflex HPV - Hyperion Analyst Cytologic Material: STATEMENT OF ADEQUACY - Specimen satisfactory for interpretation; endocervical/transformation zone component absent or insufficient GENERAL CATEGORIZATION: - Negative for intraepithelial lesion or malignancy CRISTI Hebert(ASCP) Report Electronically Reviewed and Signed Out By CRISTI Hebert(ASCP) 11/21/2024 09:25:22Specimen(s) Received: A: Imaged Thinprep Pap Test w/ Reflex HPV - Hyperion Analyst Cytologic Material Clinical History: Last Menstrual Period: [...] determined by the Surgical Pathology Department at [facility] as part of an ongoing director quality assurance program and in compliance with federally mandated [...] characteristics determined by the Surgical Pathology Department [facility]. It has not been cleared or approved by the [place]. [place]. Food and Drug Administration. Stefanie Bai NP LAB CYTOLOGY ORDERABLES Nannette bell Result PATHOLOGY [address] [place] [address] from Last 3 Months or Most Recently Relevant to Health Maintenance Insurance [employer] [facility] FEDERAL Advance Directives For more information, please contact: [phone] * Full Code (Latest Code Status on File) Date Activated Date Inactivated Comments 05/27/2025 6:02 PM 05/29/2025 11:15 PM * Full Code Date Activated Date Inactivated Comments 05/26/2025 5:44 PM 05/27/2025 6:02 PM Full CPR in ca se of cardiopulmonary arrest * Full Code Date Activated Date Inactivated Comments 04/27/2025 4:43 PM 04/29/2025 12:20 AM Care Teams Helmet Hat Puncher Relationship Specialty Start Date End Date Mylene Hanna DO [facility] [address] REN [address] [place] [id number] PCP - General Family Medicine 01/19/25 No, Physician 09/29/24
--- OUTSIDE RECORDS SUMMARY | 2025-05-29 23:47 | XMS_ITS | Encounter Summary ---
Author Organization [facility] Healthcare Address [address] [place] [address] Care Team Providers Care Philanthropy Officer Name Role Phone No, Physician Unavailable Mylene Hanna DO Primary Care Provider + Reason for Visit * Auth/Cert (Routine) Specialty Diagnoses / Procedures Referred By Contac t Referred To Contact Diagnoses Uterine contractions Procedures NA Referral ID Status Reason Start Date Expiration Date Visits Re quested Visits Authorized [id number] 1 1 Encounter Details Date Type Department Care Team (Late st Contact Info) Description 05/26/2025 2:01 PM CDT - 05/29/2025 7:05 PM CDT Hospital Encounter [address] [id number] Marielle Wakefield MD [facility] [address] [place] [address] [id number] Normal labor (Primary Dx); Obesity in ; care insufficient, unspecified trimester; Maternal varicella, non-immune Discharge Disposition: Discharge to home or self care Social History Tobacco Use Types Packs/Day Years Used Date Smoking Tobacco: Never [facility] Utilities Answer Date Recorded In the past 12 months has e electric, gas, oil, or water company threatened [...] often do you attend chur ch or quaker services? Never 05/28/2025 Do you belong to [...] things needed for daily living? No 05/28/2025 Robbins Depression Scale Answer Date Recorded Robbins Depression Scale Total 2 03/30/2025 The thought [...] any time in the past 12 m [facility], were you homeless or living in a snf (including now)? No 05/28/2025 Personal Safety Answer Date Recorded Have you ever been in or are you currently in a harmful physical or emotional relationship or is someone making you feel afraid or unsafe? 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 Gender Identity Not on file Sexual Orientation Not on file documented as of this encounter Last Filed Vital Signs Vital Sign Reading [...] Mass Index 38.79 05/26/2025 2:11 PM CDT documented in this encounter Discharge Summaries * Charisse Eisenberg MD - 05/29/2025 7:48 AM CDT Inpatient Discharge Summary Admitting Provider: Marielle Wakefield MD Discharge Provider: Charisse Eisenberg MD Admission Date: 05/26/2025 Discharge Date: 05/29/2025 Delivery Date/Time: 05/27/2025t 4:54 PM Delivery method: Vaginal [[id number]] Primary Discharge Diagnosis: Intrauterine at 38w5d, delivered Secondary Discharge Diagnosis: Medical Conditions Diagnosis WEOB: Varicella nonimmune WEOB: pt of [place] 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 #tPTL - Admission SVE 3/25/-4 -> 3/25/-4 x 2 - irregular ctxns, overall comfortable [...] - BSUS 04/27: EFW 2572g, (62%tile) - 04/28 fUS EFW 2481 (48%ile), vertex, anterior - BMZ^04/29@1613 - Mg/PCN deferred - Peds consult ordered on admission - MONITORING PLAN: dNST #MWB #VZV NI - PNL: Rh +/Ab neg/HIV NR/Rub Imm/VZV NI/RPR NR/HepB NR/Hep C NR/GC/CT/trich negx3 - 1 hr GTT 154 - 3T HIV/RPR NR/NR - s/p flu 10/20, Tdap 03/16 - Rhogam not indicated - GBS in process - MOD: anticipate vaginal - MOF/MOC: breast/condoms L&D and PP Hospital course: Anabelle Chacon is a 30 y.o. female at 38w5d weeks gestation, dated by L=1 with Estimated Dateof Delivery: 06/05/25. Vertex presentation and GBS negative confirmed on admission. She presented with painful contractions. Her labor was augmented with AROM and pitocin. Epidural was placed for anesthesia. Patient progressed to complete and had an uncomplicated vaginal delivery to a viable male with apgars 8 and 9 at one and five minutes of life respectively. See L&D delivery note forfull details. The patient was transferred to . Her course was uncomplicated. Prior to discharge, her pain was well controlled, she was voiding, passing gas, ambulating, and meeting all post milestones. # ID: Afebrile. No signs/symptoms of infection. #VZV NI: Recc PP varivax # Heme: QBL 243 mL. Hemodynamically stable. # CV/Pulm: Vital signs stable, within normal limits. # GI/: Tolerating PO. Voiding spontaneously. # Pain: Controlled with above regimen. # Mother/Baby: The patient has chosen to breastfeed her infant and was undecided about contraception, for discussion at PP visit. Discharge Details Physical Exam at Discharge: Discharge Condition: Stable Pulse: 75 Resp: 18 BP: 119/78 Temp: 36.8 ??C (98.2 ??F) Weight: 219 lb (99.3 kg) See full physical exam from progress note on day of discharge. Lab Results Component Value Date HCT 39.3 05/26/2025 ABORH O Positive 05/26/2025 RUBELIGG Reactive 11/17/2024 [] Iron prescribed on discharge [] Post Rhogam given [] Post MMR given Immunization History Administered Date(s) Administered Influenza, Trivalent, Preservative Free, Intramuscular 10/20/2024 Tdap 03/16/2025 Discharge Medications: Your medication list Stop taking: aspirin 81 mg enteric coated tablet 81 mg, oral, Daily continue 61-[id number] 6-dha 30 mg iron-1mg -200 mg capsule Daily 2 week telemedicine appointment and 6 week exam in office documented in this encounter Discharge Instructions * Discharge Instructions* Francesca Carmichael, POLICE LIAISON OFFICER - 05/28/2025 1:05 PM CDT Images from the original note were not included. Discharge Instructions - Vaginal Delivery In order to minimize social contact during COVID19 precautions, your visit maybe over the phone. Please remember to wash your hands frequently, do not touch your face, and avoid anyone with feversor cough. Stay at home as much as possible and practice social distancing. For any concerns you can call our OB communication center at [phone] 18/06. * If you have SEVERE illness including persistent shortness of breath, high fever not responsive totylenol, or nausea and vomiting preventing you from adequately orally hydrating, then call your doctor or go to the ER. Call Your Doctor If: * You have a fever of 100.4 degrees or higher. * You have vaginal bleeding more than your normal menstrual period. * You are passing large blood clots (larger than an egg). * You have a strong foul odor coming from your vagina. * You have burning, pain or difficulty urinating. * You have pain or swelling in your vagina or vulva that gets worse or does not get better. * You have nausea, vomiting or increased abdominal pain. * You have redness or pain in your calves, legs or inner thighs. * You have red, swollen painful breasts. * You have other questions or concerns * You have a headache, difficulty breathing, pain in your upper abdomen, or changes in your vision. * You have decreased urine output. * Your level of consciousness changes. * If you have a blood pressure cuff at home, check your blood pressure once a day and write it down. Call your doctor if your blood pressure is greater than 160 (top number) or 110 (bottom number). Diet: * Follow your regular diet. * Maintain liquid intake of 8 -10 glasses per day. * For constipation - drink prune juice or take stool softener medication ordered by your doctor. Eat foods with fiber (examples - raisins, prunes, washed raw vegetables, whole wheat bread, and bran). Activity: * Do not put anything in your vagina for 6 weeks. NO douching, tampons or sexual intercourse. * Weakness and fatigue are common. * Limit activities and visitors and increase as energy levels return. Rest as often as possible. * No driving while taking narcotics. * If you are not , milk will come in between the 3rd and 4th day . Wear tight support bra and use ice packs to relieve breast discomfort. Care Instructions: * You may shower and shampoo hair as desired. * You may take a tub bath 2 weeks after delivery. * For perineal discomfort sit in warm shallow water for 15-20 minutes. Do this 3-4 times a day. Anystitches you have will dissolve in about 2 weeks. Continue to use anita bottle for the next 5-7 days. Contraception: For more information on available methods of preventing , please visit https://www.bedsider.org/ PROGESTIN-ONLY PILLS: Progestin-only pills are safe to use while . You can start taking the pills at any time. You can get within 2 weeks of giving , though we recommend no sexual intercourse for at least 6 weeks. Swallow the pill at the same time every day. Choose a time and take the pill at that time or within 3 hours after that time. Start the next pack the day after the last pack is finished. Do not take any break or days off between packs. Always have your next pack ready before you finish each pack. If you miss taking a pill during the 3-hour window, take it as soon as you remember, even if that means you will take 2 pills in one day. Use a backup method such as condoms or abstain from sex during the next 48 hours. Changes in your menstrual periods (frequency, length, and bleeding between periods) are common in women taking these pills. Very few medications interact with control pills. Ask your pharmacist or doctor if you have questions about other medications you aretaking. COMBINED ORAL CONTRACEPTION PILLS: You can start taking these pills at 4 weeks after delivery. Do not wait for your first period to start taking the pills. You can get within 2 weeks of giving , though we recommend no sexual intercourse for at least 6 weeks. Swallow the pill at the same time every day. Start the next pack the day after the last pack is finished. Do not take any break or days off between packs. Alwayshave your next pack ready before you finish each pack. If you miss taking a pill, take it as soon as you remember, even if that means you will take 2 pills in one day. If you miss more than 2 pills in a row, call your doctor for instructions. Use a backup method such as condoms or abstain from sex.Very few medications interact with control pills. Ask your pharmacist or doctor if you have questions about other medications you are taking. CONTRACEPTIVE RING: You can start using the contraceptive ring (Nuvaring) at 4 weeks after delivery. Do not wait for your first period to start using the ring. You can get within 2 weeks of giving , thoughwe recommend no sexual intercourse for 6 weeks. Insert the ring into your vagina. Use any position you find comfortable: standing with one leg up, squatting, or lying down. Squeeze the ring and put the edge into the opening of the vagina. If you feel the ring, just slide it farther into your vaginauntil it is comfortable. The exact position is not critical. Leave the ring in place for 3 weeks. You do not need to remove the ring for intercourse. If you do, do not leave it out of the vagina for more than 3 hours. After 3 weeks of use, remove the ring for 7 days. You will have your menstrual period this week. Then, insert a new ring after 7 days, even if you have not finished your menstrual period. You can also use the ring for 4 weeks in a row. Insert a new ring immediately after 4 weeks without any break. You will not have a menstrual period with this method. CONTRACEPTIVE PATCH: You can start using the patch (Ortho Evra) at 4 weeks after delivery. Do not wait for your first period to start using the patch. You can get within 2 weeks of giving , though we recommend no sexual intercourse for at least 6 weeks. Use one patch for 7 days. Apply a new patch once a week on the same day for 3 weeks in a row. During the fourth week, do not wear a patch for 7 days. You will have your menstrual period this week. Then start another cycle of patches. Do not take more than 7 days off between patches, even if you have not finished your menstrual period. You can apply the patch to your buttocks, abdomen, back, or the outside of your upper arm. Do not apply to your breasts. Make sure the skin is clean and dry to help the patch stick well. INJECTABLE CONTRACEPTIVE: You received your first dose of Depo-Provera in the hospital. It works right away to prevent . Get a new Depo-Provera shot every 12 weeks. Call your doctor to make an appointment. Depo-Provera works best if you return on time. It is common to have changes in your menstrual periods with Depo-Provera, such as no periods, frequent bleeding, or unpredictable bleeding. DESIRES IUD: The intrauterine device (IUD) can be placed 4 to 6 weeks after delivery. Make an appointment to have it placed with your doctor. You can get within 2 weeks of giving , though we recommend no sexual intercourse for at least 6 weeks. Consider using a different method of control while you are waiting for your IUD. DESIRES IMPLANT: The contraceptive implant (Nexplanon) can be placed at any time after delivery. Make an appointmentto have it placed with your doctor. You do not need to wait until your 6 week check-up. You can get within 2 weeks of giving , though we recommend no sexual intercourse for at least 6 weeks. Consider using a different method of control while you are waiting for your Nexplanon. IMPLANT PLACED IN-HOSPITAL: Your contraceptive implant (Nexplanon) was placed while you were in the hospital. It works right away to prevent . Nexplanon is designed to last 3 years. It is common to have changes in yourmenstrual periods with Nexplanon, such as no periods, frequent bleeding, or unpredictable bleeding. IUD PLACED IN-HOSPITAL: Your intrauterine device (IUD) was placed while you were in the hospital. It works right away to prevent . An IUD placed after is more likely to fall out on its own. Your doctor will check that it is in place at your 6 week visit. If you see the IUD fall out, or have unexpected heavy bleeding and cramping, call your doctor. Use a backup method like condoms or abstain from sex if this happens. LACTATIONAL AMENORRHEA can be an effective method to prevent if ALL of the following are true: 1) you are on demand, with at least 80% of feeds at the breast (not pumped breast milk orformula), 2) you have not gotten your first menstrual period after delivery, and 3) your baby is less than 6 months old. Ask your doctor about other methods of control if any of those things are no longer true. DESIRES CONDOMS / DECLINES CONTRACEPTION: You can get within 2 weeks of giving , though we recommend no sexual intercourse for at least 6 weeks. Condoms can be an effective method of control. However, other methods of control are better at preventing . Use a new condom every time you have sex. If you do not use a condom, or the condom breaks, you can use emergency contraceptive pills (Plan B) to preventpregnancy. You can get them at a pharmacy without a prescription. You can also get a prescription by calling your doctor. Emergency contraception works best if used right away. However, you can stilluse it within 5 days after unprotected sex. POST BILATERAL TUBAL LIGATION / STERILIZATION: Your tubal ligation procedure was performed while you were in the hospital. It works right away to prevent . PARTNER VASECTOMY Vasectomy is successful in more than 99 percent of men. A second method of control is necessary until testing is done to confirm that there are no sperm in the semen. The sperm count is checked, usually three months after the procedure, to ensure that no sperm remain in the ejaculate. A man needs to have ejaculated at least 20 times after vasectomy to clear the ducts of sperm before the follow-up sperm count. A sperm count requires that the man give a semen sample. A man who continues to have sperm in the ejaculate requires a second sperm count, usually performed two months later. If the follow-up check shows sperm that do not move, there is a small chance that a partner may become pre gnant. Another method of contraception should be continued until clearance is given by the doctor. DESIRES BILATERAL TUBAL LIGATION / STERILIZATION: You plan to have a fallopian tube removal at 6 weeks . You can call your primary OB to schedule. It works right away to prevent . Feeding: : Follow unrestricted . Feed your baby based on baby's hunger cues (or atleast 8-12 feedings per 24 hours). Do NOT supplement unless instructed by Technologies Division Chair. Call your Technologies Division Chair if your baby has poor eating habits (examples: feedings decrease, no feedings in 6 hours, or spits up more than ?? of their feeding for 2 consecutive feedings). Once your baby is 5-6 days old, you should expect at least 5 wet diapers and 3 soiled diapers per day. Outpatient Follow Up: Every patient needs a visit. We are currently scheduling some in person and some telemedicine visits for your visits. If you do not hear from your primary OB to set up your telephone or in person visit, please call your primary OB to set up a telephone or in person visit. Thank you for understanding and remember to wash your hands and avoid anyone with fevers or cough. Stay at home as much as possible and practice social distancing. If you yourself develop fever >100.4F, a new cough, or shortness of breath please call our centralized OB communication center at [phone]. Do not come to the hospital or clinic until you speak with a provider. Contact Information for your primary OB: [place] [employer] - [address] [place] [address]. Call [phone] to schedule an appointment to be seen within 2 weeks of delivery. No future appointments. Blood Pressure Monitoring: If you are enrolled in home blood pressure monitoring please text your blood pressures when prompted upon hospital discharge. How to use a home blood pressure monitor: Be still. Don't smoke, drink caffeinated beverages or exercise within 30 minutes before measuring your blood pressure. Sit for at least 5 minutes before taking your blood pressure. Sit correctly. Sit with your back straight and supported (on a dining chair, rather than a sofa). Your feet should be flat on the floor and your legs should not be crossed. Your arm should be supported on a flat surface (such as a table) with the upper arm at heart level. Make sure the middle of the cuff is placed directly above the bend of the elbow. Check your monitor's instructions for an illustration or have your healthcare provider show you how. If at ANY time you have symptoms of chest pain, shortness of breath, vision changes, numbness/weakness, difficulty speaking, headache, or if something just doesn't feel right, call our OB communication center at [phone]. High blood pressure problems during & after Preeclampsia or induced hypertension is a high blood pressure disease that can happen in and shortly after delivery (up to 6 weeks after having your baby). Most women will developblood pressure problems towards the end of their , but others will have it for the first time after their delivery. High blood pressure can be dangerous and needs to be monitored closely. Blood pressures can get so high that it can put you at risk for brain injury, stroke, and seizures. Preeclampsia can also hurt your kidneys and liver or cause buildup of fluid in your lungs. If it is very severe and not treatedpreeclampsia can cause . Preeclampsia affects 8-10 out of 100 women and although we don???t know exactly what causes it we do know that some women are at higher risk: - First - If you are under 18 years old or over 40 years old - If you have diabetes, kidney problems, or Lupus - If you are obese - If you have had preeclampsia before - If you had high blood pressure before - If you are with twins or triplets The best way to treat preeclampsia is to have the baby and most of the time your blood pressure will return to normal after delivery, but some people still have high blood pressure after the baby is born. Some people need medication when leaving the hospital to help keep you blood pressure in a normal range. You may only need to take medication for a short time after the baby is born others need it for longer periods of time. It is very important that you get this prescription filled and take the medicine as instructed in order to help control your blood pressure. If you have preeclampsia or another hypertensive disorder of after you go home from the hospital, you should call the doctor if you experience: shelter risks of preeclampsia If you had preeclampsia or high blood pressure in you have a higher chance of having highblood pressure sometime later in life. It can also increase your chance of heart disease, heart attack, or stroke in future . May women who get preeclampsia will not have it again in the future but women with preeclampsia have a higher chance of getting it again compared to women who did not have it. If you had a baby before 34 weeks because of preeclampsia, you have the highest chance of getting it again. It is very important you see a primary care doctor for regular checkups to have your blood pressurechecked. Discharge Medications: Take the following medications. Your medication list ASK your doctor about these medications aspirin 81 mg enteric coated tablet 81 mg, oral, Daily [id number]-[id number] 6-dha 30 mg iron-1mg -200 mg capsule Daily documented in this encounter Medications at Time of Discharge 63-[id number]-[id number] 6-dha 30 mg iron-1mg -200 mg capsule Take by mouth daily acetaminophen 500 mg capsuleIndication s:Pain Take 2 capsules (1,000 mg total) by mouth every 6 (six) hours 6 tablet 05/29/2025 docusate sodium (COLACE) 100 mg capsuleIndication s:constipation,St ool Softener Take 1 capsule (100 mg total) by mouth 2 (two) times a day 20 capsule 05/29/2025 ibuprofen (ADVIL,MOTRIN) 600 mg tabletIndications :Cramps Take 1 tablet (600 mg total) by mouth every 6 (six) hours as needed for pain 30 tablet 05/29/2025 polyethylene glycol (MIRALAX) 17 gram/dose bulk powderIndications :constipation Take 17 g by mouth daily 510 g 05/29/2025 documented as of this encounter Ordered Prescriptions Prescription Sig Dispense Quantity Refills Last Filled Start Date End Date polyethylene glycol (MIRALAX) 17 gram/dose bulk powderIndications: constipation Take 17 g by mouth daily 510 g 05/29/2025 ibuprofen (ADVIL,MOTRIN) 600 mg tabletIndications: Cramps Take 1 tablet (600 mg total) by mouth every 6 (six) hours as needed for pain 30 tablet 05/29/2025 docusate sodium (COLACE) 100 mg capsuleIndications :constipation,Stoo l Softener Take 1 capsule (100 mg total) by mouth 2 (two) times a day 20 capsule 05/29/2025 acetaminophen 500 mg capsuleIndications :Pain Take 2 capsules (1,000 mg total) by mouth every 6 (six) hours 6 tablet 05/29/2025 documented in this encounter Discharge Disposition Disposition Code Departure Means Destination Discharge to home or self care documented in this encounter Progress Notes * Kassie Griffith MD - 05/29/2025 5:32 AM CDT Post Progress Note Delivery Date/Time: 05/27/2025t 4:54 PM Delivery method: Vaginal [[id number]] Subjective Flatus: Yes Pain: Well controlled Diet: Tolerating regular diet. Ambulating independently Voiding spontaneously Lochia less than menses Pt is doing well at this time with no concerns. went well yesterday and they're readyto be discharged home. Scheduled Medications acetaminophen, 1,000 mg, oral, Q6H PEPE docusate sodium, 100 mg, oral, BID viatmin, 1 tablet, oral, Daily polyethylene glycol, 17 g, oral, Daily PRN Medications benzocaine-menthoL calcium carbonate hydrocortisone ibuprofen fnahsav-ndnqe-kwiaoef ondansetron ODT OR ondansetron varicella zoster Vitals: Temp: [36.8 ??C (98.2 ??F)-37 ??C (98.6 ??F)] 36.8 ??C (98.2 ??F) Pulse: [75-85] 75 BP: (119-123)/(59-78) 119/78 Resp: [...] Griffith MD 05/29/25 R4 Attestation PPD#2 from [facility], recovering well. Meeting post milestones, appropriate for d/c home. Adwoa Lewis MD PGY-4 Cosigned by Charisse Eisenberg MD at 05/29/2025 9:18 AM CDT Associated attestation - Charisse Eisenberg MD - 05/29/2025 9:18 AM CDT Patient seen and examined independently. Resident note reviewed. Agree with note with the followingchanges/additions: None. Pt is doing well. Pt declines contraception. Discussed importance of avoiding pg for at least 1 year. Dsicussed Phexxi and condom use. BP 130/64 (BP Location: Right arm, Patient Position: HOB 30 degrees) Pulse 84 Temp 36.4 ??C (97.5 ??F) (Oral) Resp 17 Ht 160 cm (5' 3) Wt 219 lb (99.3 kg) LMP 08/29/2024 (Exact Date) SpO2 100% Yes BMI 38.79 kg/m?? Physical exam as documented. Appropriate assessment and plan. Plan for d/c PPD# 2, today Charisse Eisenberg MD 05/29/2025 9:17 AM * Kassie Griffith MD - 05/28/2025 5:38 AM CDT Post Progress Note Delivery Date/Time: 05/27/2025t 4:54 PM Delivery method: Vaginal [[id number]] Subjective Flatus: Yes Pain: Well controlled Diet: Tolerating regular diet. Ambulating independently Voiding spontaneously Lochia less than menses Pt is doing well at this time with no concerns. She's feeling discomfort in her bottom but no pain.She denies lightheadedness, CHRISTIANSON, vision changes, SOB, CP, or leg swelling. Scheduled Medications acetaminophen, 1,000 mg, oral, Q6H PEPE docusate sodium, 100 mg, oral, BID viatmin, 1 tablet, oral, Daily polyethylene glycol, 17 g, oral, Daily PRN Medications benzocaine-menthoL calcium carbonate hydrocortisone ibuprofen xfxyiuf-mpmez-jnuftcm ondansetron ODT OR ondansetron varicella zoster Vitals: Temp: [36.7 ??C (98.1 ??F)-36.9 ??C (98.4 ??F)] 36.7 ??C (98.1 ??F) Pulse: [76-103] 101 BP: (105-151)/(47-94) 114/50 Resp: [...] Lewis MD 05/28/25 R4 Attestation PPD#1 from [facility]. Continue routine post care. Adwoa Lewis MD [...] Continue care & support. Marcos Montoya MD * Hope Govea MD - 05/27/2025 2:45 PM CDT OB Attending Note Continues to be cat 2 with pushing. Variable decels after pushing. Quick return to baseline. Moved to side and variables were not as deep. Plan to continue pushing on side, changing sides as tolerated. Can push every other if needed. Will try closed knee or butterfly pushes as well. Station +2. LOAby palpation, confirmed with US. Discussed second stage and pushing expectations with patient, however heart rate tracing may limit these. Discussed possible if intolerance to pushing persists Hope Govea MD * Kassie Griffith MD - 05/27/2025 1:28 PM CDT Labor Update Note S: Patient s/p epidural and comfortable. To bedside due to decel noted at 1315 and 1318. Pt was placed on hands and knees by RN when we arrived. Cervical check conducted, confirmed that anterior lip is still present. No cord felt. Will CTM. O: BP 126/59 Pulse 88 Temp 36.9 ??C (98.4 ??F) (Oral) Resp 16 Ht 160 cm (5' 3) Wt 219 lb(99.3 kg) LMP 08/29/2024 (Exact Date) SpO2 98% BMI 38.79 kg/m?? SVE: Lip/rim (Comment) /90 /0 Monitoring: Baseline: 145 bpm, Variability: Periods of Minimal, Accelerations: Absent and Decelerations: Yes, multiple late decelerations noted Uterine Activity: Difficult to assess given suboptimal tocometry while on hands and knees A/P: 30 y.o. at 38w5d Category 2 tracing, reassured by return to baseline on hands and knees and cervical change tonear complete Vitals: reviewed and normal Additional medications/infusions: [...] on after earlier decel Hope Govea MD * Adwoa Lewis MD - 05/27/2025 12:56 PM CDT Labor Update Note To bedside due to [...] aware and en route. Adwoa Lewis MD * Charisse Eisenberg MD - 05/27/2025 11:30 AM CDT Attending note Late entry Labor Progress Note [...] External monitor: reactive, 135 Uterine Activity: External [place]: and Frequency: Every 3-4 minutes Oxytocin at 18 units Assessment /Plan Anabelle Chacon is a 30 y.o. female at 38w5d weeks gestation Labor: latent labor, AROm w/ clr fluid. Oxytocin reduced to 10 units. Recheck cervix at 12 noon. Increase oxytocin if minimal change Well Being: Category I. Anticipate Charisse Eisenberg MD 1:32 AM * Jordyn Washington MD - 05/27/2025 7:30 AM CDT Labor Update Note S: Patient comfortable between contractions. O: BP 122/69 Pulse 83 Temp 36.7 ??C (98.1 ??F) (Oral) Resp 16 Ht 160 cm (5' 3) Wt 219 lb(99.3 kg) LMP 08/29/2024 (Exact Date) SpO2 100% BMI 38.79 kg/m?? SVE: Patient currently in circuit of positions. Will recheck once circuit is done. Monitoring: Baseline: 140 bpm, Variability: Moderate, Accelerations: Present and Decelerations: None Uterine Activity: Contractions present, q2-3 minutes A/P: 30 y.o. at 38w5d Category I tracing Vitals: reviewed and normal Additional medications/infusions: oxytocin - will continue to titrate per protocol Jordyn Washington MD * Blayne Lowe MD - 05/27/2025 2:34 AM CDT Labor Update Note S: Patient feeling painful contractions and comfortable between contractions O: BP 123/66 Pulse 82 Temp 36.9 ??C (98.5 ??F) (Oral) Resp 16 Ht 160 cm (5' 3) Wt 219 lb(99.3 kg) LMP 08/29/2024 (Exact Date) SpO2 98% BMI 38.79 kg/m?? SVE: 4.5 /75 /-3 Monitoring: Baseline: 135 bpm, Variability: Moderate, Accelerations: Present and Decelerations: one late appearing decel Uterine Activity: Irregular contractions A/P: 30 y.o. at 38w4d Category 2 tracing, one late decel, reassured by moderate variability Vitals: reviewed and normal Additional medications/infusions: none To start on OT, given no cervical change Blayne Lowe MD * Blayne Lowe MD - 05/26/2025 8:47 PM CDT Labor Update Note S: Patient feeling painful contractions and comfortable between contractions O: BP 129/74 Pulse 100 Temp 36.7 ??C (98.1 ??F) (Oral) Resp 18 Ht 160 cm (5' 3) Wt 219 lb (99.3 kg) LMP 08/29/2024 (Exact Date) SpO2 92% BMI 38.79 kg/m?? SVE: 4.5 /75 /-3 Monitoring: Baseline: 140 [...] like to consider augmentation Blayne Lowe MD documented in this encounter H&P Notes * Adwoa Lewis MD - 05/26/2025 5:55 PM CDT Obstetrics H&P Chief Complaint: labor Estimated Date of Delivery: 06/05/25 Provider: Jonathan Jiménez HPI: Anabelle Chacon is a 30 y.o. 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 History of Abnormal Pap: None STD History: none Past Medical History: Diagnosis Date Carpal tunnel syndrome during Chronic hypertension: No Diabetes: No Asthma: No No past surgical history on file. Social History Tobacco Use Smoking status: Never Smokeless tobacco: Not on file Substance and Sexual Activity Drug use: Not Currently Types: Alcohol Sexual activity: Yes Partners: Male Alcohol Use: Not on file Support System: Not addressed Safe at home: Yes family history includes Diabetes in her father and mother; Hypertension in her father and mother; Kidney disease in her father; Leukemia in her sister; No Known Problems in her brother; Sickle cell trait in her sister. Family history of bleeding or clotting disorders: No Family history of defects, genetic disorders, or developmental delay: No No Known Allergies HOME MEDICATIONS : aspirin 81 mg enteric coated tablet 41-lryc-pyetfz 6-dha 30 mg iron-1mg -200 mg capsule Review of Sys: Negative except per HPI Vitals: Temp: [37 ??C (98.6 ??F)] 37 ??C (98.6 ??F) Pulse: [83] 83 Resp: [18] 18 BP: (122)/(80) 122/80 Physical Exam: General: NAD, mood appropriate Cardiovascular: Regular rate and rhythm Pulmonary: normal work of breathing Abdomen: Gravid, non-tender Extremities: Warm and well perfused Speculum Exam: deferred Cervix: 4.5 /50 /-3 Monitoring: Baseline: 150 bpm, Variability: Moderate, Accelerations: Present and Decelerations: None Uterine Activity: Contractions present, q3-5 minutes Interpretation: Category 1 Ultrasound: Vertex presentation Anterior placenta Previa: No Estimated Weight: 3100g by [place] Labs: Lab Results Component Value Date ABORH O Positive 04/27/2025 IDCOOMB Negative 04/27/2025 [id number] Nonreactive 04/27/2025 LABRPR Nonreactive 04/27/2025 RUBELIGG Reactive 11/17/2024 HEPBSAG Nonreactive 11/17/2024 VZVIGG Nonreactive (A) 11/17/2024 Rh pos/Ab neg/HIV neg (Resulted on: 04/27) 3rd trimester (>28 wga):yes/Rub Imm/RPRNR/HepB NR/HepC NR/VZV NI/GC/CT neg GBS neg (Resulted on: 04/27) Assessment and Plan Problem Supervision of With History of Pre-Term Labor, Unspecified Trimester Anabelle Chacon is a 30 y.o. female at 38w4d who is dated by L=1 and is being admitted for labor. Admit to L&D: Labs: CBC and T&S pending. Labor augmentation with oxytocin . FWB: Continuous monitoring. tracing category I. ID: 3rd trimester HIV (>28 wga) negative on 04/27. GBS negative on 04/27. 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 Peds for del. Plan discussed with Dr. Wakefield. Adwoa Lewis MD 05/26/25 Cosigned by Marielle Wakefield MD at 05/27/2025 12:45 PM CDT documented in this encounter Nursing Notes * Stephenie Cervantes RN - 05/29/2025 7:05 PM CDT Discharge instructions given with follow up appointment for patient and . Aware of need to bring infant to [facility] for labs in am. Verbalized understanding of all prescriptions and schedule of meds. secured in carseat on discharge to home * Trisha Gtz RN - 05/27/2025 6:17 PM CDT Upon admission to L&D, mother reported plan to breast feed infant. Educated on early feeding cues and offered support and assistance with first feeding. Encouraged mother to call nursing staff for assistance with latching prn. Mother reports understanding of all education provided. Encouragement and support provided. 05/27/2025 6:17 PM Trisha Gtz RN documented in this encounter Miscellaneous Notes * Note - Jordana Booker RN - 05/29/2025 9:06 AM CDT Mother states feels like infant is latching with wider deeper latch but at times her nipples are slightly flat after . Discussed to speak with peds md if she feels infant is not latchingon well or nipples become sore, cracked or bleeding with . Noted yesterday had milk lingual frenulum but appears to move tongue well.Mother states confident with continuing to work with to get a wide deep latch. Discussed how to care for tender nipples with lanolin and cool comfort gels. . Discussed engorgement, s/s mastitis, and aware of all discharge resources. Mother states feels confident with . Mother aware infant should have minimum of6 feedings today and by day 3 of life should be 8-12 times daily and on demand. Discussed by day 3 should have 3 voids and stools. Then discussed number of voids and stools needed each day after that. * Plan of Care - Dee Goins RN - 05/28/2025 9:27 PM CDT Goals: Clinical Goals for the Shift: VSS, pain control, safety, monitor I&Os, ambulate, ,bonding w/ baby, appropriately caring for baby. Bronc Buster Patient Centered Goal for Treatment: Safe D/C Problem: Care Goal: Risk for complications during the period will decrease Outcome: Progressing Flowsheets (Taken 05/28/20252126) Risk for complications during the period will decrease: Monitor fundal height and consistency Report signs and symptoms of excessive bleeding Monitor lochia amount and color Goal: Ability to identify and utilize resources during the phase will improve Outcome: Progressing Flowsheets (Taken 05/28/20252126) Ability to identify and utilize resources during the phase will improve: Collaborate with digital specialist Goal: Ability to participate in self care as condition permits will improve Outcome: Progressing Flowsheets (Taken 05/28/20252126) Ability to participate in self-care, as condition permits will improve: Assist with breast and nipple care Assist with perineal skin care Problem: Goal: Mother's verbalization of proper breast feeding techniques will improve Outcome: Progressing Flowsheets (Taken 05/28/20252126) Mothers verbalization of proper techniques will improve: Instruct on general knowledge of Instruct on establishing/maintaining milk supply Instruct on use of breast pump , hand expression or other methods of pumping Goal: Mother's demonstration of proper techniques will improve Outcome: Progressing Flowsheets (Taken 05/28/20252126) Mothers demonstration of proper techniques will improve: Provide breast and nipple care Encourage skin to skin contact with Assess infants weight gain with as appropriate for age * Note - Jordana Booker RN - 05/28/2025 2:28 PM CDT Mother sitting up in bed holding sleepy swaddled . Mother states has been sleepy sincereturning to room s/p circumcision. Mother encouraged to attempt 8-12 times daily . Will follow up in am * Hospital Course - Dora Khanna MD - 05/28/2025 1:05 PM CDT 30yo at 34w3d a/f tPTL. #tPTL - Admission SVE 25/-4 -> 25/-4 x 2 - irregular ctxns, overall comfortable [...] - BSUS 04/27: EFW 2572g, (62%tile) - 04/28 fUS EFW 2481 (48%ile), vertex, anterior - BMZ^64@1613 - Mg/PCN deferred - Peds consult ordered on admission - MONITORING PLAN: dNST #MWB #VZV NI - PNL: Rh +/Ab neg/HIV NR/Rub Imm/VZV NI/RPR NR/HepB NR/Hep C NR/GC/CT/trich negx3 - 1 hr GTT 154 - 3T HIV/RPR NR/NR - s/p flu 11/25, Tdap 03/16 - Rhogam not indicated - GBS in process - MOD: anticipate vaginal - MOF/MOC: breast/condoms L&D and PP Hospital course: Anabelle Chacon is a 30 y.o. female at 38w5d weeks gestation, dated by L=1 with Estimated Dateof Delivery: 06/05/25. Vertex presentation and GBS negative confirmed on admission. She presented with painful contractions. Her labor was augmented with AROM and pitocin. Epidural was placed for anesthesia. Patient progressed to complete and had an uncomplicated vaginal delivery to a viable male infant with apgars 8 and 9 at one and five minutes of life respectively. See L&D delivery note forfull details. The patient was transferred to . Her course was uncomplicated. Prior to discharge, her pain was well controlled, she was voiding, passing gas, ambulating, and meeting all post milestones. # ID: Afebrile. No signs/symptoms of infection. #VZV NI: Recc PP varivax # Heme: QBL 243 mL. Hemodynamically stable. # CV/Pulm: Vital signs stable, within normal limits. # GI/: Tolerating PO. Voiding spontaneously. # Pain: Controlled with above regimen. # Mother/Baby: The patient has chosen to breastfeed her and was undecided about contraception, for discussion at PP visit. * Initial Assessments - Cherelle Mcdermott LCSW - 05/28/2025 12:54 PM CDT Reason for Admission MARIELY (Anabelle Chacon 1995) was admitted on 05/26/2025 for Uterine contractions [O47.9]. Social Work met with Anabelle Enzo Oswaldo for SDOH check in. This clinician previously met with Anabelle Viverosor on [facility] admission (04/28/25). 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 Pediatric follow-up to be scheduled prior to discharge. Medical insurance coverage is through [employer]. Information Baby boy was born on 05/27/[birth year]25 at EGA 38.5 weeks and has been named Tommy. Delivery was Vaginal. [place] weighed 7lb 2.3. at delivery. will be breast fed. This is mother's first child. Social History Current address is [address] [place] [id number], where she lives with her . Currently [phone] (home) is the best phone number for future contact. MOB reports that her and their families will be a positive support for her. /Father of the baby, Scooter Chacon, can be reached at [phone]. FOB has been present and supportive at the hospital. Mood and Anxiety No history of maternal MH diagnoses in chart. MOB previously reported stable mood throughout . SW provides support and reassurance about being first time parents. Mood concerns denied at this time. Social Work and Anabelle Chacon discussed the signs and symptoms of Mood and Anxiety Disorder. Social Work discussed and normalized increase in emotions and the importance of self-care. Social Work encouraged new mom to take time for herself and utilize supports available. Available support systems reviewed, including: , family. Warning signs reviewed and MOB encouraged to seek medical and mental health treatment if symptoms arise including possible medication management. MOB engaged in conversation and demonstrates knowledge. Resources Provided and Goals Addressed Social Determinants of Health: Transportation Needs: No Transportation Needs (05/28/2025) PRAPARE - Transportation Lack of Transportation (Medical): No Lack of Transportation (Non-Medical): No Social Connections: Moderately Isolated (05/28/2025) Social Connection and Isolation Panel [NHANES] Frequency of Communication with Friends and Family: More than three times a week Frequency of Social Gatherings with Friends and Family: Three times a week Attends Bahai Services: Never Active Member of Clubs or Organizations: No Attends Club or Organization Meetings: Never Marital Status: Food Insecurity: No Food Insecurity (05/28/2025) Hunger Vital Sign Worried About Running Out of Food in the Last Year: Never true Ran Out of Food in the Last Year: Never true Housing Stability: Low Risk (05/28/2025) Housing Stability Vital Sign Unable to Pay for Housing in the Last Year: No Number of Times Moved in the Last Year: 0 Homeless in the Last Year: No Financial Resource Strain: Low Risk (05/28/2025) Overall Financial Resource Strain (CARDIA) Difficulty of Paying Living Expenses: Not very hard MOB has diapers, safe sleep location, bottles, clothing, and car seat for . MOB reports no barriers to accessing food, transportation, support, or finances. Strengths MOB is open and receptive to Social Work intervention, education, and resources. Safe Discharge Plan Mother bonding well with . Preparations have been made at home for and social supports are available. Follow-up medical care has been arranged. Family is connected to resources and will utilize services as needed. Social Work will follow for support and additional needs should they arise. ERVIN Martínez, GARRICK [facility] Clinical Speech And Language Tutor Women and Infants Units * Note - Jordana Booker RN - 05/28/2025 9:55 AM CDT Discussed hunger cues, cluster feedings and normal behavior. Mother shown correct positioning and latch. awake, opens fair to well with a sustain suck noted. Latch noted to be slightlynarrow and pointed out observation to mother. Infant still under 24 hours old. Mother shown hand expression and infant was given drops of colostrum before . Encouraged mother to attempt to breastfeed 8-12 times daily and watch for hunger cues * Plan of Care - Savannah Nuno RN - 05/28/2025 9:49 AM CDT Problem: Care Goal: Risk for complications during the period will decrease Outcome: Progressing Goal: Ability to identify and utilize resources during the phase will improve Outcome: Progressing Problem: Goal: Mother's verbalization of proper breast feeding techniques will improve Outcome: Progressing Goal: Mother's demonstration of proper techniques will improve Outcome: Progressing Problem: Goal: Mother's demonstration of proper techniques will improve Outcome: Progressing Goals: Clinical Goals for the Shift: Pain will be well controlled Care Home Patient Centered Goal for Treatment: healthy mom, healthy baby Summary: * Plan of Care - Silvia Hartley RN - 05/28/2025 1:52 AM CDT Goals: Problem: Skin Integrity Impairment Risk Goal: Mobility will improve Outcome: Progressing Flowsheets (Taken 05/28/2025 015) Mobility will improve: Encourage ambulation Goal: Understanding of ways to prevent future skin breakdown will improve Outcome: Progressing Goal: Nutritional status will improve Outcome: Progressing Goal: Risk for impaired skin integrity will decrease Outcome: Progressing Problem: Medication Goal: Satisfaction with pain management medication regimen will improve Outcome: Progressing Flowsheets (Taken 05/28/2025 015) Satisfaction with pain management medication regimen will improve: Assess satisfaction with pain management regimen Evaluate medication effects Report inadequate pain control to healthcare provider Problem: Care Goal: Risk for complications during the period will decrease Outcome: Progressing Flowsheets (Taken 05/28/2025 015) Risk for complications during the period will decrease: Monitor fundal height and consistency Monitor lochia amount and color Report signs and symptoms of excessive bleeding Goal: Ability to identify and utilize resources during the phase will improve Outcome: Progressing Goal: Ability to participate in self care as condition permits will improve Outcome: Progressing Flowsheets (Taken 05/28/2025 015) Ability to participate in self-care, as condition permits will improve: Assist with perineal skin care Problem: Goal: Mother's verbalization of proper breast feeding techniques will improve Outcome: Progressing Flowsheets (Taken 05/28/2025 015) Mothers verbalization of proper techniques will improve: Instruct on general knowledge of Instruct on establishing/maintaining milk supply Goal: Mother's demonstration of proper techniques will improve Outcome: Progressing Flowsheets (Taken 05/28/2025 015) Mothers demonstration of proper techniques will improve: Assess infants nursing behavior Clinical Goals for the Shift: Pain will be well controlled Bronc Buster Patient Centered Goal for Treatment: healthy mom, healthy baby Summary: * Plan of Care - Hue Sauceda RN - 05/27/2025 7:20 PM CDT Goals: Clinical Goals for the Shift: VSS pain control Care Home Patient Centered Goal for Treatment: healthy mom, healthy baby Summary: Patient progressing towards all goals Problem: Labor and Delivery Goal: Will progress through the normal stages of labor and achieve successful delivery within minimal maternal and complications Outcome: Progressing Problem: Skin Integrity Impairment Risk Goal: Mobility will improve Outcome: Progressing Goal: Understanding of ways to prevent future skin breakdown will improve Outcome: Progressing Goal: Nutritional status will improve Outcome: Progressing Goal: Risk for impaired skin integrity will decrease Outcome: Progressing * L&D Delivery Note - Kassie Griffith MD - 05/27/2025 6:14 PM CDT [facility] Vaginal Delivery Note Patient's Name: Anabelle Chacon : 1995 Attending: Hope Govea Assisting: Kassie Griffith MD Clinic: [facility] Primary Diagnoses: Elevated 1 hour glucose, normal 3 hour 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 Time ruptured prior to delivery: 6h 09m Antibiotics: none Infant Delivery Date: 05/27/2025 Delivery Time: 4:54 PM Placenta Delivery Date & Time: 05/27/2025 5:00 PM Cord: 3 vessels [3] Delayed cord clamping: Yes, 60 seconds. Episiotomy: No Laceration: second degree EBL: 200 mL : living7 lb 2.3 oz (3.24 kg)male APGARs: 8 / 9 Disposition: Nursery Labor Summary: Anabelle Chacon is a 30 y.o. female at 38w5d weeks gestation, dated by L=1 with Estimated Dateof Delivery: 06/05/25. Vertex presentation and GBS negative confirmed on admission. She presented with painful contractions. Her labor was augmented with AROM and pitocin. Epidural was placed for anesthesia. Patient progressed to complete and had an uncomplicated vaginal delivery. The cord was clamped and cut and the baby was handed to mother for skin to skin. The third stage was actively managed with external uterine massage, gentle cord traction and pitocin. The placenta was delivered spontaneously and intact. A 2nd laceration was repaired in the usual fashion. Excellent hemostasis was noted. All counts were correct before and after the delivery. Additional Procedures Performed: None Description of Additional Procedures Performed: N/A Complications: None Description of Complications: N/A Dr. Hope Govea was present for the delivery. Kassie Griffith MD 05/27/25 Cosigned by Hope Govea MD at 05/28/2025 1:15 PM CDT Associated attestation - Hope Govea MD - 05/28/2025 1:15 PM CDT OB Attending Attestation I was present for delivery and agree with note. Hope Govea MD * Plan of Care - Trisha Gtz RN - 05/27/2025 7:37 AM CDT Problem: Labor and Delivery Goal: Will progress through the normal stages of labor and achieve successful delivery within minimal maternal and complications Outcome: Progressing Goals: Summary: Patient progressing towards goals. * Plan of Care - Maryam Moura RN - 05/26/2025 6:57 PM CDT Goals: VSS, maternal/ wellbeing, safe progression towards delivery Problem: Labor and Delivery Goal: Will progress through the normal stages of labor and achieve successful delivery within minimal maternal and complications Outcome: Progressing Summary: Patient progressing towards goals. documented in this encounter Plan of Treatment Not on file documented as of this encounter Procedures Procedure Name Priority Date/Time Associated Diagnosis Comments POCT GLUCOSE DEVICE Routine 05/28/2025 6 :39 AM CDT EGFR STAT 05/26/2025 5:51 PM CDT DIFFERENTIAL AUTO STAT 05/26/2025 5:5 1 PM CDT CBC WITH AUTO DIFFERENTIAL STAT 05/26/2025 5:51 PM CDT RPR STAT 05/26/2025 5:51 PM CDT TYPE AND SCREEN STAT 05/26/2025 5:51 PM CDT COMPREHENSIVE METABOLIC PANEL STAT 05/26/2025 5:51 PM CDT POCT URINALYSIS (CLINITEK) Routine 05/26/2025 2:10 PM CDT documented in this encounter Results * POCT glucose (05/28/2025 6:39 AM CDT) Glucose, POC 82 70 - 199 mg/dL Blood 05/28/2025 6:39 AM CDT 05/28/2025 6:39 AM CDT us Marielle Wakefield MD LAB POCT ORDERABLES - DEVICE Final Result [facility] Department [place] [address] * eGFR (05/26/2025 5:51 PM CDT) eGFR [...] CDT 05/26/2025 5:59 PM CDT Nickie Leyva POLICE LIAISON OFFICER LAB BLOOD ORDERABL ES Final Result [facility] Department [place] [address] * Differential, auto (05/26/2025 5:51 PM CDT) Pathologist [facility] Neutrophil abs 5.42 1.50 - 6.50 K/cumm Imm gran abs 0.04 0.00 - 0.10 K/cumm [facility] Lymphocyte abs 1.07 0.80 - 3.30 K/cumm [facility] Monocyte abs 0.51 0.20 - 0.80 K/cumm [facility] Eosinophil abs 0.05 0.00 - 0.50 K/cumm [facility] Basophil abs 0.02 0.00 - 0.10 K/cumm [facility] Neutrophil pct 76.2 % [facility] Comment: Interpretive Data Percent cell count reference ranges are not reported, since discordance with absolute values may lead to misinterpretation of CBC data. Current Interpretive Data was last revised on 2018. Imm gran pct 0.6 % [facility] Comment: Interpretive Data Percent cell count reference ranges are not reported, since discordance with absolute values may lead to misinterpretation of CBC data. Current Interpretive Data was last revised on 2018. Lymphocyte pct 15.0 % [facility] Comment: Interpretive Data Percent cell count reference ranges are not reported, since discordance with absolute values may lead to misinterpretation of CBC data. Current Interpretive Data was last revised on 2018. Monocyte pct 7.2 % [facility] Comment: Interpretive Data Percent cell count reference ranges are not reported, since discordance with absolute values may lead to misinterpretation of CBC data. Current Interpretive Data was last revised on 2018. Eosinophil pct 0.7 % [facility] Comment: Interpretive Data Percent cell count reference ranges are not reported, since discordance with absolute values may lead to misinterpretation of CBC data. Current Interpretive Data was last revised on 2018. Basophil pct 0.3 % [facility] Comment: Interpretive Data Percent cell count reference ranges are not reported, since discordance with absolute values may lead to misinterpretation of CBC data. Current Interpretive Data was last revised on 2018. Blood 05/26/2025 5:51 PM CDT 05/26/2025 5:59 PM CDT Nickie Leyva POLICE LIAISON OFFICER LAB BLOOD ORDERABL ES Final Result [facility] Department [place] [address] * (ABNORMAL) Comprehensive metabolic panel (05/26/2025 5:51 PM CDT) Sodium 131(L) 135 - 145 mmol/L Potassium, pl 3.7 3.3 - 4.9 mmol/L [facility] Chloride 102 97 - 110 mmol/L [facility] CO2 22 22 - 32 mmol/L [facility] Anion gap 7 2 - 15 mmol/L [facility] BUN 9 6 - 25 mg/dL [facility] Creatinine 0.62 0.60 - 1.10 mg/dL [facility] Glucose 113 70 - 199 mg/dL [facility] Comment: Interpretive Data Fasting glucose >/= [...] 2022. Calcium 9.6 8.5 - 10.3 mg/dL [facility] Bilirubin, total 0.2 0.1 - 1.2 mg/dL [facility] Protein, pl 6.6 6.5 - 8.5 g/dL [facility] Albumin 3.4(L) 3.5 - 5.0 g/dL [facility] Alk phos 239(H) 40 - 130 Units/L [facility] ALT 9 7 - 45 Units/L [facility] AST 18 10 - 45 Units/L [facility] Blood 05/26/2025 5:51 PM CDT 05/26/2025 5:59 PM CDT Nickie Leyva NP LAB BLOOD ORDERABL ES Final Result [facility] Department [place] [address] * CBC with auto differential (05/26/2025 5:51 PM CDT) WBC 7.11 3.80 - 9.90 K/cumm Hgb 13.1 11.9 - 15.5 g/dL [facility] Hct 39.3 35.6 - 45.5 % [facility] Plt 191 150 - 400 K/cumm [facility] MPV 10.5 9.1 - 12.3 fL [facility] RBC 4.72 3.90 - 5.20 M/cumm [facility] MCV 83.3 81.3 - 96.4 fL [facility] MCH 27.8 27.1 - 33.3 pg [facility] MCHC 33.3 32.3 - 35.7 g/dL [facility] RDW CV 14.7 11.1 - 14.9 % [facility] RDW SD 44.6 35.7 - 48.1 fL [facility] NRBC abs 0.00 0.00 - 0.01 K/cumm [facility] Blood 05/26/2025 5:51 PM CDT 05/26/2025 5:59 PM CDT Nickie Leyva NP LAB BLOOD ORDERABL ES Final Result Performing Organization Address [facility] Co de Phone Number [facility] Department [place] [address] * Type and screen (05/26/2025 5:51 PM CDT) Juanjo, indirect Negative ABO Rh O Positive [facility] Blood 05/26/2025 5:51 PM CDT 05/26/2025 6:18 PM CDT Narrative [facility] - 05/26/2025 7:11 PM CDT Has the patient had Daratumumab or Isatuximab in the past 6 months?->Unknown Nickie Leyva NP LAB BLOOD BANK CARLOS A T ORDERABLES Final Result [facility] Department [place] [address] * RPR Blood (05/26/2025 5:51 PM CDT) RPR Nonreactive Nonreactive Blood 05/26/2025 5:51 PM CDT 05/26/2025 5:59 PM CDT Nickie Leyva NP LAB MICROBIOLOGY - GENERAL ORDERABLES Final Result Performing Organization Address [facility]/State/ZIP Co de Phone Number [facility] Department [place] [address] * (ABNORMAL) POCT urinalysis (Clinitek) (05/26/2025 2:10 PM CDT) Color, ur, POC Yellow Yellow Clarity, UA, POC Clear Clear [facility] Glucose, ur, POC Negative Negative [facility] Bilirubin, ur, POC Negative Negative [facility] Ketones, ur, POC Negative Negative [facility] Specific gravity, ur, POC 1.015 1.010 - 1.025 [facility] Blood, ur, POC Trace(A) Negative [facility] pH, ur, POC 7.0 [facility] Comment: Interpretive Data Urine pH is affected by diet, medications, systemic acid-base disturbances, and renal tubular function. pH may affect urinary stone formation. For example, urine pH below 6.0 may help reduce the tendency for calcium phosphate stones and pH greater than 6.0 may reduce the tendency for uric acid stone formation. Source: [facility] [employer]. Last Revised Date: 12-06-2017 Protein, ur, POC Negative Negative [facility] Urobilinogen, ur, POC 0.2 mg/dL mg/dL [facility] Nitrites, ur, POC Negative Negative [facility] Leukocyte esterase, ur, POC Trace(A) Negative [facility] Urine 05/26/2025 2:10 PM CDT 05/26/2025 2:10 PM CDT us Marielle Wakefield MD LAB POCT ORDERABLES - DEVICE Final Result Performing Organization Address [facility]/ZIP Co de Phone Number [facility] Department [place] [address] documented in this encounter Visit Diagnoses Diagnosis Normal labor- Primary Normal labor Obesity in Obesity complicating , childbirth, or the puerperium, unspecified as to episode of care or not applicable care insufficient, unspecified trimester Maternal varicella, non-immune Supervision of other normal Supervision of with history of pre-term labor, unspecified trimester care following vaginal delivery (spontaneous vaginal delivery) Normal delivery documented in this encounter Administered Medications Inactive Administered Medications - up to 3 most recent administrations Medication Order MAR Action Action Date Dose Rate Site acetaminophen (TYLENOL) tablet 1,000 mg 1,000 mg, oral, Once, On Sun05/26/25 at 1900, For 1 dose Given 05/26/2025 6:20 PM CDT 1,000 mg acetaminophen (TYLENOL) tablet 1,000 mg 1,000 mg, oral, Every 6 hours scheduled, First dose on Sun05/27/25 at 1845, Indications: PainIndications:Pain Given 05/29/2025 1:03 PM CDT 1,000 mg Given 05/29/2025 6:08 AM CDT 1,000 mg Given 05/28/2025 8:08 PM CDT 1,000 mg benzocaine-menthoL (DERMOPLAST) 20-0.5 % topical spray 1 spray 1 spray, topical, As needed, other, perianal area for pain, Starting on Sun05/27/25 at 1802, Up to 6 times a day., Apply to affected area: perineum, Indications: Minor Skin Wound PainIndications:Minor Skin Wound Pain Given 05/29/2025 6:11 AM CDT 1 spray Given 05/27/2025 10:04 PM CDT 1 spray dextrose 5% and Lactated Ringer's infusion 100 mL/hr, intravenous, Continuous, Starting on Sun05/27/25 at 0315 New Bag 05/27/2025 2:43 AM CDT 100 mL/hr 100 mL/hr docusate sodium (COLACE) capsule 100 mg 100 mg, oral, 2 times daily, First dose on Sun05/27/25 at 2100, Hold if diarrhea., Indications: constipation, Stool SoftenerIndications:constipatio n,Stool Softener Given 05/29/2025 10:54 AM CDT 100 mg Given 05/28/2025 8:01 PM CDT 100 mg Given 05/28/2025 8:24 AM CDT 100 mg fentaNYL-BUPivacaine preservative free in 0.9% sodium chloride 2 mcg/mL- 0.1 % cassette (premix) Continuous Rate: 12 mL/hr, Patient Bolus Dose: 8 mL, Lockout Interval: 15 Minutes, Clinician Bolus (mL): 10, epidural, Continuous, Starting on Sun05/27/25 at 1030, Until Sun05/27/25 at 1802, 100 mL, Indications: Pain, Stop epidural infusion after placental delivery and any indicated repair is complete., RoutineIndications:Pain New Syringe/Cartridge 05/27/2025 3:58 PM CDT Rate/Dose Change 05/27/2025 10:16 AM CDT 12 mL/hr 12 mL/ hr New Bag 05/27/2025 10:13 AM CDT 10 mL ibuprofen (ADVIL,MOTRIN) tablet 600 mg 600 mg, oral, Every 6 hours PRN, other, cramping, Starting on Sun05/27/25 at 1802, Indications: CrampsIndications:Cramps Given 05/29/2025 10:54 AM CDT 600 m g Given 05/28/2025 12:30 PM CDT 600 mg Given 05/28/2025 6:45 AM CDT 600 mg Lactated Ringer's (LR) bolus 1,000 mL 1,000 mL, intravenous, at 999 mL/hr, Administer over 1 Hours, 3 times daily PRN, for non-reassuring heart rate, variable decelerations, or late deceleration., Starting on Sun05/26/25 at 1744, For 1 dose, L&D Pre-Delivery New Bag 05/27/2025 2:21 PM CDT 1,000 mL 999 mL/hr Lactated Ringer's (LR) bolus 1,000 mL 1,000 mL, intravenous, at 999 mL/hr, Administer over 1 Hours, Once as needed, for epidural placement per anesthesia request, Starting on Sun05/26/25 at 1744, For 1 dose, L&D Pre-Delivery, Administer only on provider request. Start 15 minutes prior to epidural placement New Bag 05/27/2025 10:07 AM CDT 1,000 mL 999 mL/hr lidocaine (PF) (XYLOCAINE) 10 mg/mL (1 %) preservative free injection 100 mg 100 mg (10 mL), infiltration, Once as needed, other, repair, Starting on Sun05/26/25 at 1744, For 1 dose, L&D Pre-Delivery Given 05/27/2025 5:13 PM CDT 100 mg ondansetron (ZOFRAN) injection 4 mg 4 mg, intravenous, Administer over 2 Minutes, Every 6 hours PRN, nausea, vomiting, if not tolerating PO, Starting on Sun05/26/25 at 1744, L&D Pre-Delivery, Indications: Nausea and VomitingIndications:Nausea and Vomiting Given 05/27/2025 11:05 AM CDT 4 mg ondansetron (ZOFRAN) injection 4 mg 4 mg, intravenous, Administer over 2 Minutes, Every 6 hours PRN, nausea, vomiting, if not tolerating PO, Starting on Sun05/27/25 at 1802, Indications: Nausea and VomitingIndications:Nausea and Vomiting ondansetron ODT (ZOFRAN-ODT) disintegrating tablet 4 mg 4 mg, oral, Every 6 hours PRN, nausea, vomiting, Starting on Sun05/27/25 at 1802, If administering by mouth, place tablet on tongue and allow to dissolve., Indications: Nausea and VomitingIndications:Nausea and Vomiting oxytocin 30 unit/500 mL (0.06 unit/mL) in sodium chloride 0.9% (premix) solution 0-40 milliunits/min (0-40 mL/hr), 0.06 units/mL, intravenous, Titrated, Starting on Sun05/27/25 at 0315, Until Sun05/27/25 at 0328, Indications: Induction of Labor, Titration instructions: Titrate, Initial Dose: 2 milliunits/min, Titrate: Up/Down, Titrate by: 2 milliunits/min, Every: 30 minutes, Goal: Less than or equal to 5 contractions per 10 minutes, Maximum dose = 40 milliunit/min DO NOT USE FOR Stop oxytocin infusion and notify provider for category III heart rate (FHR) tracing or prolonged FHR deceleration. If oxytocin has been stopped for less than 30 minutes and the heart rate tracing is reassuring and contraction pattern is normal, restart oxytocin titration at half of the prior dose. If oxytocin has been stopped for greater than 30 minutes and the heart rate tracing is reassuring and contraction pattern is normal, restart oxytocin titration at 2 milliunits/minute , RoutineIndications:Inducti on of Labor Rate/Dose Change 05/27/2025 3:15 AM CDT 4 milliunits/min 4 mL/hr New Bag 05/27/2025 2:45 AM CDT 2 milliunits/min 2 mL/hr oxytocin 30 unit/500 mL (0.06 unit/mL) in sodium chloride 0.9% (premix) solution 0-40 milliunits/min (0-40 mL/hr), 0.06 units/mL, intravenous, Titrated, Starting on Sun05/27/25 at 0315, Until Sun05/27/25 at 1802, Indications: Induction of Labor, Titration instructions: Titrate, Initial Dose: 2 milliunits/min, Titrate: Up/Down, Titrate by: 2 milliunits/min, Every: 30 minutes, Goal: Less than or equal to 5 contractions per 10 minutes, Maximum dose = 40 milliunit/min DO NOT USE FOR Stop oxytocin infusion and notify provider for category III heart rate (FHR) tracing or prolonged FHR deceleration. If oxytocin has been stopped for less than 30 minutes and the heart rate tracing is reassuring and contraction pattern is normal, restart oxytocin titration at half of the prior dose. If oxytocin has been stopped for greater than 30 minutes and the heart rate tracing is reassuring and contraction pattern is normal, restart oxytocin titration at 2 milliunits/minute , RoutineIndications:Induction of Labor Restarted 05/27/2025 1:31 PM CDT 6 milliunits/min 6 mL/hr Rate/Dose Change 05/27/2025 10:44 AM CDT 10 milliunits/min 10 mL/hr Rate/Dose Change 05/27/2025 9:15 AM CDT 18 milliunits/min 18 mL/hr oxytocin 30 unit/500 mL (0.06 unit/mL) in sodium chloride 0.9% (premix) solution 95-334 milliunits/min (95-334 mL/hr), 0.06 units/mL, intravenous, Continuous, Starting on Sun05/27/25 at 1745, Until Sun05/27/25 at 2054, After delivery of placenta initiate at 334 keke-units/minutes for 30 minutes then decrease infusion to 95 keke-units/min for 3.5 hours., Routine Rate/Dose Change 05/27/2025 5:25 PM CDT 95 milliunits/min 95 mL/hr Rate/Dose Change 05/27/2025 4:55 PM CDT 334 milliunits/min 334 mL/hr PNV with [id number]-TI tablet 1 tablet 1 tablet, oral, Daily, First dose on Sun05/27/25 at 1845, Begin when normal bowel activity resumes., Indications: Vitamin Deficiency PreventionIndications:Vitamin Deficiency Prevention Given 05/29/2025 10:54 AM CDT 1 tablet Given 05/28/2025 8:24 AM CDT 1 tablet Given 05/27/2025 6:45 PM CDT 1 tablet polyethylene glycol (MIRALAX) packet 17 g 17 g, oral, Daily, First dose on Sun05/27/25 at 1845, Hold if diarrhea., Indications: constipationIndications:constipation Given 05/28/2025 8:25 AM CDT 17 g documented in this encounter Discontinued Medications Medication Sig Discontinue Reason Start Date End Da te aspirin 81 mg enteric coated tablet Take 1 tablet (81 mg total) by mouth daily Stop Taking at Discharge 11/17/2024 05/29/2025 documented as of this encounter Active and Recently Administered Medications Times are shown in CDT. Scheduled Medication Order 05/27/2025 05/28/2025 05/29/2025 acetaminophen (TYLENOL) tablet 1,000 mg 1,000 mg, oral, Every 6 hours scheduled, First dose on Sun05/27/25 at 1845, Indications: Pain 1845 (Given - Provider: Trisha Gtz RN) 0156 (Not Given - Provider: Silvia Hartley RN - Reason: Patient/family refused)0645 (Given - Provider: Silvia Hartley RN)1229 (Given - Provider: Savannah Nuno, INES)1847 (Not Given - Provider: Savannah Nuno RN - Reason: Patient/family refused)2007 (Given - Provider: Dee Goins RN) 0104 (Canceled Entry - Provider: Dee Goins, INES)0608 (Given - Provider: Dee Goins, INES)1303 (Given - Provider: Stephenie Cervantes RN)1800 (Due) docusate sodium (COLACE) capsule 100 mg 100 mg, oral, 2 times daily, First dose on Sun05/27/25 at 2100, Hold if diarrhea., Indications: constipation, Stool Softener 2203 (Given - Provider: Silvia Hartley RN) 08 (Given - Provider: Savannah Nuno, INES)2000 (Given - Provider: Dee Goins RN) 105 (Given - Provider: Stephenie Cervantes, INES) PNV with lpgolih-phfm-JH tablet 1 tablet 1 tablet, oral, Daily, First dose on Sun05/27/25 at 1845, Begin when normal bowel activity resumes., Indications: Vitamin Deficiency Prevention 1844 (Given - Provider: Trisha Gtz, INES) 823 (Given - Provider: Savannah Nuno, INES) 105 (Given - Provider: Stephenie Cervantes RN) polyethylene glycol (MIRALAX) packet 17 g 17 g, oral, Daily, First dose on Sun05/27/25 at 1845, Hold if diarrhea., Indications: constipation 2049 (Not Given - Provider: Silvia Hartley RN - Reason: Other) 08 (Given - Provider: Savannah Nuno, INES) 075 (Not Given - Provider: Stephenie Cervantes RN - Reason: Order parameters not met) Continuous Medication Order 05/27/2025 05/28/2025 05/29/2025 dextrose 5% and Lactated Ringer's infusion (CANCELED) 100 mL/hr, intravenous, Continuous, Starting on Sun05/27/25 at 0315 0240 (Canceled Entry - Provider: Anais Abreu, INES)0243 (New Bag - Provider: Anais Abreu, INES)1702 (Stopped - Provider: Trisha Gtz RN) fentaNYL-BUPivacaine preservative free in 0.9% sodium chloride 2 mcg/mL- 0.1 % cassette (premix) (CANCELED) Continuous Rate: 12 mL/hr, Patient Bolus Dose: 8 mL, Lockout Interval: 15 Minutes, Clinician Bolus (mL): 10, epidural, Continuous, Starting on Sun05/27/25 at 1030, Until Sun05/27/25 at 1802, 100 mL, Indications: Pain, Stop epidural infusion after placental delivery and any indicated repair is complete., Routine 1013 (New Bag - Provider: Candy Holly CRNA)1016 (Rate/Dose Change - Provider: Priti Girard MD - Comment: patient bolus @ 8 ml)1558 (New Syringe/Cartridge - Provider: Trisha Gtz, IENS)1711 (Stopped (Dual Sign) - Provider: Trisha Gtz RN) oxytocin 30 unit/500 mL (0.06 unit/mL) in sodium chloride 0.9% (premix) solution (CANCELED)(Linked Group 1) 0-40 milliunits/min (0-40 mL/hr), 0.06 units/mL, intravenous, Titrated, Starting on Sun05/27/25 at 0315, Until Sun05/27/25 at 032, Indications: Induction of Labor, Titration instructions: Titrate, Initial Dose: 2 milliunits/min, Titrate: Up/Down, Titrate by: 2 milliunits/min, Every: 30 minutes, Goal: Less than or equal to 5 contractions per 10 minutes, Maximum dose = 40 milliunit/min DO NOT USE FOR Stop oxytocin infusion and notify provider for category III heart rate (FHR) tracing or prolonged FHR deceleration. If oxytocin has been stopped for less than 30 minutes and the heart rate tracing is reassuring and contraction pattern is normal, restart oxytocin titration at half of the prior dose. If oxytocin has been stopped for greater than 30 minutes and the heart rate tracing is reassuring and contraction pattern is normal, restart oxytocin titration at 2 milliunits/minute , Routine 0245 (New Bag - Provider: Anais Abreu RN - Comment: verified by Tang CHACON)0315 (Rate/Dose Change - Provider: Anais Abreu RN)0330 (Stopped - Provider: Anais Abreu RN - Comment: duplicate order, this one to be discontinued) oxytocin 30 unit/500 mL (0.06 unit/mL) in sodium chloride 0.9% (premix) solution (CANCELED)(Linked Group 2) 0-40 milliunits/min (0-40 mL/hr), 0.06 units/mL, intravenous, Titrated, Starting on Sun05/27/25 at 0315, Until Sun05/27/25 at 1802, Indications: Induction of Labor, Titration instructions: Titrate, Initial Dose: 2 milliunits/min, Titrate: Up/Down, Titrate by: 2 milliunits/min, Every: 30 minutes, Goal: Less than or equal to 5 contractions per 10 minutes, Maximum dose = 40 milliunit/min DO NOT USE FOR Stop oxytocin infusion and notify provider for category III heart rate (FHR) tracing or prolonged FHR deceleration. If oxytocin has been stopped for less than 30 minutes and the heart rate tracing is reassuring and contraction pattern is normal, restart oxytocin titration at half of the prior dose. If oxytocin has been stopped for greater than 30 minutes and the heart rate tracing is reassuring and contraction pattern is normal, restart oxytocin titration at 2 milliunits/minute , Routine 0330 (Restarted - Provider: Anais Abreu RN)0400 (Rate/Dose Change - Provider: Anais Abreu RN)0430 (Rate/Dose Change - Provider: Anais Abreu RN)0515 (Rate/Dose Change - Provider: Anais Abreu RN)0545 (Rate/Dose Change - Provider: Anais Abreu RN)0833 (Rate/Dose Change - Provider: Trisha Gtz RN)0915 (Rate/Dose Change - Provider: Trisha Gtz RN)1044 (Rate/Dose Change - Provider: Trisha Gtz RN - Comment: verbal order per , Sayer at [facility])1317 (Stopped - Provider: Trisha Gtz RN)1331 (Restarted - Provider: Trisha Gtz RN - Comment: per Lewis MD)1654 (Stopped - Provider: Trisha Gtz RN) oxytocin 30 unit/500 mL (0.06 unit/mL) in sodium chloride 0.9% (premix) solution () 95-334 milliunits/min (95-334 mL/hr), 0.06 units/mL, intravenous, Continuous, Starting on Sun05/27/25 at 1745, Until Sun05/27/25 at 2054, After delivery of placenta initiate at 334 keke-units/minutes for 30 minutes then decrease infusion to 95 keke-units/min for 3.5 hours., Routine 1655 (Rate/Dose Change - Provider: Trisha Gtz RN)1725 (Rate/Dose Change - Provider: Trisha Gtz RN) PRN Medication Order 05/27/2025 05/28/2025 05/29/2025 benzocaine-menthoL (DERMOPLAST) 20-0.5 % topical spray 1 spray 1 spray, topical, As needed, other, perianal area for pain, Starting on Sun05/27/25 at 1802, Up to 6 times a day., Apply to affected area: perineum, Indications: Minor Skin Wound Pain 2204 (Given - Provider: Silvia Hartley RN) 0611 (Given - Provider: Dee Goins RN) calcium carbonate (TUMS) chewable tablet 500 mg 500 mg, oral, 4 times daily PRN, heartburn, Starting on Sun05/27/25 at 1802, Indications: Dyspepsia hydrocortisone (ANUSOL-HC) 2.5 % rectal cream rectal, 3 times daily PRN, hemorrhoids, Starting on Sun05/27/25 at 1802, Indications: Hemorrhoids ibuprofen (ADVIL,MOTRIN) tablet 600 mg 600 mg, oral, Every 6 hours PRN, other, cramping, Starting on Sun05/27/25 at 1802, Indications: Cramps 0645 (Given - Provider: Silvia Hartley RN)1230 (Given - Provider: Savannah Nuno RN) 1054 (Given - Provider: Stephenie Cervantes, INES) Lactated Ringer's (LR) bolus 1,000 mL (COMPLETED) 1,000 mL, intravenous, at 999 mL/hr, Administer over 1 Hours, 3 times daily PRN, for non-reassuring heart rate, variable decelerations, or late deceleration., Starting on Sun05/26/25 at 1744, For 1 dose, L&D Pre-Delivery 1421 (New Bag - Provider: Trisha Gtz RN)1520 (Stopped - Provider: Trisha Gtz RN) Lactated Ringer's (LR) bolus 1,000 mL (COMPLETED) 1,000 mL, intravenous, at 999 mL/hr, Administer over 1 Hours, Once as needed, for epidural placement per anesthesia request, Starting on Sun05/26/25 at 1744, For 1 dose, L&D Pre-Delivery, Administer only on provider request. Start 15 minutes prior to epidural placement 1007 (New Bag - Provider: Trisha Gtz RN)1031 (Stopped - Provider: Trisha Gtz RN) lidocaine (PF) (XYLOCAINE) 10 mg/mL (1 %) preservative free injection 100 mg (COMPLETED) 100 mg (10 mL), infiltration, Once as needed, other, repair, Starting on Sun05/26/25 at 1744, For 1 dose, L&D Pre-Delivery 1713 (Given - Provider: Trisha Gtz, INES) ondansetron (ZOFRAN) injection 4 mg (CANCELED)(Linked Group 3) 4 mg, intravenous, Administer over 2 Minutes, Every 6 hours PRN, nausea, vomiting, if not tolerating PO, Starting on Sun05/26/25 at 1744, L&D Pre-Delivery, Indications: Nausea and Vomiting 1105 (Given - Provider: Trisha Gtz, INES) ondansetron (ZOFRAN) injection 4 mg(Linked Group 4) 4 mg, intravenous, Administer over 2 Minutes, Every 6 hours PRN, nausea, vomiting, if not tolerating PO, Starting on Sun05/27/25 at 1802, Indications: Nausea and Vomiting ondansetron ODT (ZOFRAN-ODT) disintegrating tablet 4 mg(Linked Group 4) 4 mg, oral, Every 6 hours PRN, nausea, vomiting, Starting on Sun05/27/25 at 1802, If administering by mouth, place tablet on tongue and allow to dissolve., Indications: Nausea and Vomiting Linked Groups Order Group 1: oxytocin 30 unit/500 mL (0.06 unit/mL) in sodium chloride 0.9% (premix) solution (CANCELED)Jump to med 0-40 milliunits/min (0-40 mL/hr), 0.06 units/mL, intravenous, Titrated, Starting on Sun05/27/25 at 0315, Until Sun05/27/25 at 0328, Indications: Induction of Labor, Titration instructions: Titrate, Initial Dose: 2 milliunits/min, Titrate: Up/Down, Titrate by: 2 milliunits/min, Every: 30 minutes, Goal: Less than or equal to 5 contractions per 10 minutes, Maximum dose = 40 milliunit/min DO NOT USE FOR Stop oxytocin infusion and notify provider for category III heart rate (FHR) tracing or prolonged FHR deceleration. If oxytocin has been stopped for less than 30 minutes and the heart rate tracing is reassuring and contraction pattern is normal, restart oxytocin titration at half of the prior dose. If oxytocin has been stopped for greater than 30 minutes and the heart rate tracing is reassuring and contraction pattern is normal, restart oxytocin titration at 2 milliunits/minute , Routine And Rupture of membranes Category 3 (III) heart rate tracing Prolonged or recurrent FHR decelerations Prolonged minimal variability Change in FHR baseline Uterine tachysystole requiring intervention (CANCELED) Routine, Continuous, Starting on Sun05/27/25 at 0236, Until Specified, Rupture of membranes Category 3 (III) heart rate tracing Prolonged or recurrent FHR decelerations Prolonged minimal variability Change in FHR baseline Uterine tachysystole requiring intervention Group 2: oxytocin 30 unit/500 mL (0.06 unit/mL) in sodium chloride 0.9% (premix) solution (CANCELED)Jump to med 0-40 milliunits/min (0-40 mL/hr), 0.06 units/mL, intravenous, Titrated, Starting on Sun05/27/25 at 0315, Until Sun05/27/25 at 1802, Indications: Induction of Labor, Titration instructions: Titrate, Initial Dose: 2 milliunits/min, Titrate: Up/Down, Titrate by: 2 milliunits/min, Every: 30 minutes, Goal: Less than or equal to 5 contractions per 10 minutes, Maximum dose = 40 milliunit/min DO NOT USE FOR Stop oxytocin infusion and notify provider for category III heart rate (FHR) tracing or prolonged FHR deceleration. If oxytocin has been stopped for less than 30 minutes and the heart rate tracing is reassuring and contraction pattern is normal, restart oxytocin titration at half of the prior dose. If oxytocin has been stopped for greater than 30 minutes and the heart rate tracing is reassuring and contraction pattern is normal, restart oxytocin titration at 2 milliunits/minute , Routine And Rupture of membranes Category 3 (III) heart rate tracing Prolonged or recurrent FHR decelerations Prolonged minimal variability Change in FHR baseline Uterine tachysystole requiring intervention (CANCELED) Routine, Continuous, Starting on Sun05/27/25 at 0243, Until Specified, Rupture of membranes Category 3 (III) heart rate tracing Prolonged or recurrent FHR decelerations Prolonged minimal variability Change in FHR baseline Uterine tachysystole requiring intervention Group 3: ondansetron ODT (ZOFRAN-ODT) disintegrating tablet 4 mg (CANCELED) 4 mg, oral, Every 6 hours PRN, nausea, vomiting, Starting on Sun05/26/25 at 1744, L&D Pre-Delivery, If administering by mouth, place tablet on tongue and allow to dissolve., Indications: Nausea and Vomiting Or ondansetron (ZOFRAN) injection 4 mg (CANCELED)Jump to med 4 mg, intravenous, Administer over 2 Minutes, Every 6 hours PRN, nausea, vomiting, if not tolerating PO, Starting on Sun05/26/25 at 1744, L&D Pre-Delivery, Indications: Nausea and Vomiting Group 4: ondansetron ODT (ZOFRAN-ODT) disintegrating tablet 4 mgJump to med 4 mg, oral, Every 6 hours PRN, nausea, vomiting, Starting on Sun05/27/25 at 1802, If administering by mouth, place tablet on tongue and allow to dissolve., Indications: Nausea and Vomiting Or ondansetron (ZOFRAN) injection 4 mgJump to med 4 mg, intravenous, Administer over 2 Minutes, Every 6 hours PRN, nausea, vomiting, if not tolerating PO, Starting on Sun05/27/25 at 1802, Indications: Nausea and Vomiting documented in this encounter Orders Medications Ordered That Cong ht Not Have Been Administered Count Last Ordered Date First Ordered Date calcium carbonate (TUMS) princess wable tablet 500 mg 1 05/27/2025 Carrier Fluids for Secondary Infusion - 0.9% Sodium Chloride 2 05/27/2025 05/26/2025 hydrocortisone (ANUSOL-HC) 2 .5 % rectal cream 1 05/27/2025 naloxone (NARCAN) 0.4 mg/mL injection 0.04-0.4 mg 1 05/27/2025 ondansetron (ZOFRAN) injection 4 mg 1 05/27 ondansetron ODT (ZOFRAN-ODT) disintegrating tablet 4 mg 2 05/27/2025 05/26/2025 sodium chloride 0.9% flush 0.5-20 mL 4 12/202405/26/2025 carboprost (HEMABATE) injection 250 mcg 1 0 05/26/2025 loperamide (IMODIUM) capsule 2 mg 1 methylergonovine (METHERGINE ) injection 0.2 mg 1 05/26/2025 miSOPROStoL (CYTOTEC) tablet 800 mcg 1 11/2024 oxytocin (PITOCIN) injection 10 Units 1 11/2024 oxytocin 30 unit/500 mL (0.0 6 unit/mL) in sodium chloride 0.9% (premix) solution 1 05/26/2025 terbutaline (BRETHINE) injection 0.125 mg 1 05/26/2025 terbutaline (BRETHINE) injection 0.25 mg 1 05/26/2025 tranexamic acid (CYKLOKAPRON ) 1,000 mg/100 mL (10 mg/mL) in sodium chloride (premix) 1,000 mg 1 05/26/2025 Lab Orders Without Results Count Last Ordered D ate First Ordered Date POCT URINALYSIS (CLINITEK) 1 05/26/2025 Nursing Count Last Ordered Date First Orde red Date NURSING COMMUNICATION 2 05/27/20252024 MISCELLANEOUS NURSING CARE ORDER (SPECIFY) 2 05/26/2025 VERIFY INFORMED CONSENT 1 05/26/2025 VITAL SIGNS 1 05/26/2025 Admission Count Last Ordered Date First Orde red Date ADMIT TO L&D INPATIENT 1 05/26/2025 Transfer Count Last Ordered Date First Orde red Date TRANSFER PATIENT TO NEW UNIT 1 05/27/2025 Discharge Count Last Ordered Date First Orde red Date DISCHARGE PATIENT 1 05/29/2025 CORE MEASURES Count Last Ordered Date First Ord ered Date REASON FOR NO VTE PROPHYLAXIS AT ADMISSION 1 05/26/2025 documented in this encounter Care Teams Philanthropy Officer Relationship Specialty Start Date End Date Mylene Hanna DO [address] [facility] [address] [place] [address] PCP - General Family Medicine 01/19/25 No, Physician 09/29/24 documented as of this encounter
[2025-05-29 23:53] VITALS: BP 124/73; PULSE 99; RESP 18; TEMP 36.9; O2SAT 99
--- NOTE | 2025-05-29 23:57 | ECG_ITS ---
Test Date: 2025-05-30 00:03:10 Measurements Intervals Buckner Rate: 93 P: 50 NM: 159 QRS: 48 QRSD: 80 T: 18 QT: 330 QTc: 411 Interpretive Statements SINUS RHYTHM No previous ECG available for comparison Electronically Signed On 05-30-2025 14:00:49 CDT by Dio Grover M.D.
--- NOTE | 2025-05-30 00:14 | ED.DIZZY ---
HPI - Dizziness General Chief Complaint: Dizziness Stated Complaint: i just feel off Time Seen by Provider: 05/29/25 23:55 History of Present Illness HPI Narrative: Patient is a 30-year-old female who was previously 38 weeks and 4 days nor would a normal spontaneous vaginal delivery 2 days ago at [facility]. She is under the care of OBGYN Dr. Vivar. Patient was admitted on 05/26 for contractions and had her delivery on 05/27 and was discharged on 05/29 after some minor bleeding from a grade 2 tear that was repaired. She has been doing well but as soon as she got home she was feeling unwell including ?feeling off? and possibly having a near syncopal event. Patient denies any blurry vision, headache, chest pain but did endorse some mild shortness of breath that is not present currently. No nausea, vomiting, leg swelling. No gestational diabetes, hypertension or preeclampsia/eclampsia complicating her . She was otherwise in her normal state of health. Did not take any new medications prior to arrival. Related Data Home Medications ?Medication ?Instructions ?Recorded ?Confirmed ?Last Taken ?Type vitamins no.119-iron 2 tablet PO DAILY 11/05/24 03/05/25 Unknown History fumarate 29 mg-folic acid 1 mg tablet Allergies Allergy/AdvReac Type Severity Reaction Status Date / Time No Known Allergies Allergy Verified 04/06/25 09:48 Review of Systems Review of Systems: As [facility] Surgical History Surgical History H/O removal of cyst Family History Family History Father Hypertension Diabetes mellitus Kidney disease Sibling Hypertension Leukemia Sister had when she was young Sibling Sickle cell trait Social History Social History Social History: Caffeine: none Smoking status: Never smoker Alcohol intake: former Alcohol use details: Socially Substance use: never Substance use type: does not use Do You Feel Safe in your Home?: Yes Lack of Transportation: No Lack of Food: Never True Current Housing: I Have Housing Concerned About Future Housing: No Difficulty Paying Gas/Electric Bills: No Difficulty Paying for Meds: No Currently Unemployed: No Education: Bachelor's Degree Difficulty w/ Childcare or Family Care: No Living arrangements: with family Occupation/Education: occupation Additional occupation/education comments: [employer] in [place] Gender identity (if verbalized by the patient): Female Sexual Orientation (if Verbalized by the Patient): Straight or Heterosexual Agree to blood products: Yes Exam Narrative: GENERAL: [Well-appearing, well-nourished, and in no acute distress.] HEAD: [Normocephalic, atraumatic.] EYES: [PERRLA and EOMI.] ENT: Nares clear, no rhinorrhea or epistaxis. Mucous membranes moist. NECK: Supple. CHEST: [Clear to auscultation. No respiratory distress.] HEART: [Regular rate and rhythm]. No murmur heard. [Normal peripheral pulses.] ABDOMEN: [Soft, nondistended], [nontender], [No rigidity or guarding] EXTREMITIES: Normal range of motion. [No edema.] SKIN: Warm, dry, no rash. NEURO: [No focal deficits]. Alert and oriented [x3.] PSYCH: [Normal mood and affect.] Course Vital Signs Vital signs: Vital Signs Temperature 36.9 C 05/29/25 23:53 Pulse Rate 99 05/29/25 23:53 Respiratory Rate 18 05/29/25 23:53 Blood Pressure 124/73 05/29/25 23:53 Pulse Oximetry 99 05/29/25 23:53 Temperature 36.9 C 05/29/25 23:53 Pulse Rate 92 05/30/25 01:28 Respiratory Rate 18 05/30/25 01:28 Blood Pressure 124/77 05/30/25 01:28 Pulse Oximetry 100 05/30/25 01:28 MDM - Dizziness MDM Narrative Medical decision making narrative: Patient is a 30-year-old female who was previously 38 weeks and 4 days nor would a normal spontaneous vaginal delivery 2 days ago at [facility]. She is under the care of OBGYN Dr. Vivar. Patient was admitted on 05/26 for contractions and had her delivery on 05/27 and was discharged on 05/29 after some minor bleeding from a grade 2 tear that was repaired. She has been doing well but as soon as she got home she was feeling unwell including ?feeling off? and possibly having a near syncopal event. Patient denies any blurry vision, headache, chest pain but did endorse some mild shortness of breath that is not present currently. No nausea, vomiting, leg swelling. No gestational diabetes, hypertension or preeclampsia/eclampsia complicating her . She was otherwise in her normal state of health. Did not take any new medications prior to arrival. Patient is normotensive on arrival, blood pressure 124/73, pulse 99, temp 36.9? C, 99% saturation on room air. Clear breath sounds throughout both lung junior, no extremity edema or swelling. She is very vague complaints including ?feeling off ?and no focal findings on physical examination. Given that she is just freshly will evaluate for possibility of electrolyte deficiencies, dehydration, anemia from bleeding, less likely infectious process such as anemia and currently do not suspect preeclampsia/eclampsia as the source of her symptoms given her normal vital signs but will evaluate the CBC, CMP, magnesium level, urinalysis and chest x-ray. EKG obtained. She was given a fluid bolus and re-evaluated. Placed on clinical research monitor with frequent blood pressure checks. Repeat blood pressure 124/65 after 15 minutes. Patient's laboratory studies revealed no leukocytosis, hemoglobin 11.9 which is just under normal and compared to her previous MyChart is slightly lower but this was before her delivery and she did have some vaginal bleeding which is not present any longer. Chemistry panel reveals some dehydration with elevated chloride but normal potassium and sodium. Creatinine of 0.62. Normal glucose. LFTs showed normal AST and ALT and alk-phos mildly elevated 155 but downtrending from her my chart alk-phos and this is chronically elevated and her doctors are aware of this. Urinalysis has some contamination and red blood cells likely from the bleeding but no convincing evidence of urinary infection patient is asymptomatic with any urinary complaints at this time. Chest x-ray shows no pleural effusions or consolidation suspicious for pneumonia Patient was re-evaluated had significant improvement in symptoms after fluid bolus and we went over her laboratory results and suspicion for intravascular depletion and dehydration is the source for symptoms. Encouraged to maintain good oral hydration and she will have her follow-up appoint with her OBGYN and primary care provider shortly. 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 Patient is safe and stable for discharge home after brief observation here in the emergency depart with stable vital signs. Medical Records Attestation: I reviewed the patient's medical records. Lab Data Attestation: I reviewed the patient's lab results. 05/30/25 00:18 05/30/25 00:48 Labs: Lab Results 05/30/25 05/30/25 05/30/25 Range/Units 00:18 00:48 01:53 WBC 8.6 (4.5-10.0) K/mm3 RBC 4.29 (4.2-5.4) M/mm3 Hgb 11.9 L (12.0-15.0) g/dL Hct 37.5 (37.0-47.0) % MCV 87.4 (80-100) fl MCH 27.7 (26-34) pg MCHC 31.7 L (32-36) g/dl RDW 14.8 H (11.5-14.5) % Plt Count 215 (150-375) k/mm3 MPV 10.2 (7.4-10.4) fl Immature Gran % (Auto) 0.6 H (0-0.5) % Neut % (Auto) 71.3 (45.5-73.1) % Lymph % (Auto) 17.7 L (18.3-44.2) % [place] % (Auto) 8.0 (2.6-8.5) % Eos % (Auto) 1.9 (0-4.4) % Baso % (Auto) 0.5 (0.2-1.2) % Lymph # (Auto) 1.52 (0.9-3.2) K/mm3 [place] # (Auto) 0.7 H (0.1-0.6) K/mm3 Eos # (Auto) 0.2 (0-0.3) K/mm3 Baso # (Auto) 0.0 (0.0-0.1) K/mm3 Abs Immat Gran (auto) 0.05 H (0.00-0.031) K/mm3 Absolute Neuts (auto) 6.2 (1.3-6.7) K/mm3 Absolute Nucleated RBC 0.000 (0.0-0.012) K/mm3 Nucleated RBC % 0.0 (0.0-0.2) % Sodium 137 (137-145) mmol/L Potassium 3.7 (3.4-5.0) mmol/L Chloride 110 H (98-107) mmol/L Carbon Dioxide 22 (22-30) mmol/L Anion Gap 5 (4-12) mmol/L BUN 8 (7-17) mg/dL Creatinine 0.62 L (0.7-1.0) mg/dL Estim Creat Clear Calc 128 ml/min Estimated GFR > 60 (59 - ) Glucose 95 (65-110) mg/dL Calcium 9.0 (8.4-10.2) mg/dL Magnesium 1.6 (1.6-2.3) mg/dL Total Bilirubin 0.2 (0.2-1.3) mg/dL AST 35 (14-36) U/L ALT 17 (6-35) U/L Alkaline Phosphatase 155 H (38-126) U/L Total Protein 6.2 L (6.3-8.2) g/dL Albumin 3.2 L (3.5-5.1) g/dL Urine Color Yellow (Yellow) Urine Appearance Clear (Clear) Urine pH 6.5 (5.0-9.0) Ur Specific [place] 1.007 (1.001-1.035) Urine Protein Trace (Negative) mg/dL Urine Glucose (UA) Negative (Negative) mg/dL Urine Ketones Negative (Negative) mg/dL Ur Blood (Man) 3+ H (Negative) Urine Nitrate Negative (Negative) Urine Bilirubin Negative (Negative) Urine Urobilinogen 0.2 (<2.0) mg/dL Leukocyte Esterase Rfl 2+ H (Negative) GUMARO/UL Urine RBC >100 H (0-2) /hpf Urine WBC 21-50 H (0-3) /hpf Ur Squamous Epith Cells Occasional (Few) /hpf Urine Bacteria None seen /hpf Urine Casts 0-2 Imaging Data Attestation: I personally reviewed and interpreted this imaging study as follows: My impression: No consolidations or pleural effusions. No pneumothorax. Discharge Plan Discharge Clinical Impression: Pre-syncope, Acute dehydration Patient Disposition: Home Condition: Stable Instructions: Antibiotic Form, Near Syncope (ED) Additional Instructions: Your laboratory studies are reassuring here and her vital signs are normal. Your symptoms got better with fluid hydration which is a sign that your slightly dehydrated in concordance with some your lab findings. Maintain good oral hydration with water or electrolyte replacement solutions, follow-up closely with your primary doctor and OBGYN. Return with any recurrent, new or worsening symptoms or any emergent concerns. Patient Language: Cape Verdean Prescriptions: No Action PNV 119-iron fum-folic acid 29 mg iron- 1 mg tablet 2 tablet PO DAILY Follow-up/Referrals: Mylene Hanna DO [Primary Care Provider] - Time of Disposition: 02:52
--- OUTSIDE RECORDS SUMMARY | 2025-05-30 00:15 | XMS_ITS | Encounter Summary ---
Author Organization [facility] Healthcare Address [address] [place] [address] Care Team Providers Care Gearman Name Role Phone No, Physician Unavailable Mylene Hanna DO Primary Care Provider + Encounter Details Date Type Department Care Team (Late st Contact Info) Description 04/03/2025 Results Follow-Up [facility] [address] [place] [id number] Luz Vivar MD [address] [place], [place] [id number] Ob Follow Up Social History Tobacco Use Types Packs/Day Years Used Date Smoking Tobacco: Never [place] Depression Scale Answer Date Recorded [place] Depression Scale Total 2 03/30/2025 The thought of harming myself has occurred to me . 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 [address] [place], [place] [id number] PCP - General Family Medicine 01/19/25 No, Physician 09/29/24 documented as of this encounter
--- OUTSIDE RECORDS SUMMARY | 2025-05-30 00:15 | XMS_ITS | Referral Summary ---
Author Organization [address] Address [address] [place] [phone] Care Team Providers Care Rubber Heel And Sole Press Tender Name Role Phone No, Physician Unavailable Mylene Hanna DO Primary Care Provider + Encounters Date Type Department Care Team Description 05/26/2025 2:01 PM CDT - 05/29/2025 7:05 PM CDT Hospital Encounter [address] [phone] Marielle Wakefield MD Normal labor (Primary Dx); Obesity in ; care insufficient, unspecified trimester; Maternal varicella, non-immune Discharge Disposition: Discharge to home or self care 05/27/2025 10:03 AM CDT Anesthesia Event [address] [phone] Priti Girard MD Spreen, Nancy J., CRNA 05/18/2025 10:00 AM CDT Office Visit [address] [place] [phone] Stefanie Bai, COUNTER SALES REPRESENTATIVE WEOB: pt of [place] (Primary Dx) 05/11/2025 10:30 AM CDT Office Visit [address] [place] [address] Luz Vivar MD WEOB: pt of [place] (Primary Dx); WEOB: BMI 34 at IOB; 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; WEOB: Varicella nonimmune 04/30/2025 Results Follow-Up [address] [phone] Luz Vivar MD Group B streptococcal culture Vaginal/Rectal 04/28/2025 9:45 AM CDT Ancillary Procedure [address] [place] [address] WEOB: BMI 34 at IOB 04/27/2025 1:18 PM CDT - 04/28/2025 8:19 PM CDT Hospital Encounter [address] [phone] Luz Vivar MD Threatened labor, third trimester (Primary Dx) Discharge Disposition: Discharge to home or self care 04/27/2025 4:50 PM CDT Ancillary Procedure [address] [phone] 04/27/2025 11:27 AM CDT - 04/27/2025 11:59 PM CDT Hospital Encounter [address] [address] WEOB: pt of [place] Discharge Disposition: Discharge to home or self care 04/27/2025 10:30 AM CDT Office Visit [address] [phone] Luz Vivar MD WEOB: pt of [place] (Primary Dx); WEOB: BMI 34 at IOB; 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; WEOB: Varicella nonimmune 04/19/2025 4:39 PM CDT - 04/19/2025 6:00 PM CDT Hospital Encounter [address] [phone] Charisse Eisenberg MD Discharge Disposition: Discharge to home or self care 04/[facility] [address] [place] [phone] Luz Vivar MD 04/14/2025 10:00 AM CDT [facility] [address] [place] [phone] Stefanie Bai, COUNTER SALES REPRESENTATIVE WEOB: pt of [place] (Primary Dx) 04/03/2025 Results Follow-Up [facility] [address] [place] [phone] Luz Vivar MD Ob Follow Up 04/01/2025 2:30 PM CDT Ancillary Procedure [facility] at [address] [phone] Obesity in 03/30/2025 4:00 PM CDT [facility] [address] [place] [phone] Luz Vivar MD WEOB: pt of [place] (Primary Dx); WEOB: BMI 34 at IOB; 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; WEOB: Varicella nonimmune 03/27/2025 Telephone [facility] [address] [place] [phone] Kaela Oneal RN 03/25/2025 Orders Only [facility] [address] [place] [phone] Luz Vivar MD Obesity in (Primary Dx) 03/25/2025 Orders Only [facility] [address] [place] [phone] Lzu Vivar MD 03/18/2025 Results Follow-Up [facility] [address] [place] [phone] Stefanie Bai, COUNTER SALES REPRESENTATIVE Urine culture Urine, clean voided 03/16/2025 11:45 AM CDT - 03/16/2025 11:59 PM CDT Hospital Encounter [facility] [address] [place] [address] Gross hematuria; care, first in third trimester Discharge Disposition: Discharge to home or self care 03/16/2025 10:30 AM CDT Office Visit [facility] [address] [phone] Stefanie Bai, COUNTER SALES REPRESENTATIVE WEOB: pt of [place] (Primary Dx); 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; WEOB: Varicella nonimmune; WEOB: BMI 34 at IOB; Gross hematuria; care, first in third trimester from Last 3 Months Allergies No known active allergies Medications [id number] 6-dha 30 mg iron-1mg -200 mg capsule [...] Overview (12/16/2024): For varivax. WEOB: pt of [place] 11/24/2024 Overview (05/11/2025): 1st Trimester: [x] Dating Criteria: L=1 (US 10/27/24 with HAI 06/05/25) [x] Labs: Lab Results Component Value Date ABORH O Positive 11/17/2024 IDCOOMB Negative 11/17/2024 [id number] Nonreactive 11/17/2024 LABRPR Nonreactive 11/17/2024 RUBELIGG Reactive [...] at 24-28wks: Lab Results Component Value Date [id number] 154 (H) 02/16/2025 [id number] Nonreactive 02/16/2025 LABRPR Nonreactive 02/16/2025 [x] Rhogam [...] Tobacco: Never Tobacco Cessation:Counseling Given: Not Answered [facility] Utilities Answer Date Recorded In the past 12 months has e [employer], gas, oil, or water company threatened to [...] often do you attend chur ch or hoahaoism services? Never 05/28/2025 Do you belong to any clubs o r organizations such as faith groups, unions, fraternal or athletic groups, or [...] things needed for daily living? No 05/28/2025 [place] Depression Scale Answer Date Recorded [place] Depression Scale Total 2 03/30/2025 The thought [...] any time in the past 12 m [facility], were you homeless or living in a prison (including now)? No 05/28/2025 Personal Safety Answer Date Recorded Have you ever been in or are you currently in a harmful physical or emotional relationship or is someone making you feel afraid or unsafe? Denies 05/26/2025 Comments No Sex and Gender Information Value Date Recorded Sex Assigned at Not on file Legal Sex Female 9:56 AM BODY CLEANER Gender Identity Not on file Sexual Orientation [...] DEVICE Routine 05/28/2025 6 :39 AM CDT HI AN PROCEDURE PLACEHOLDER Routine 05/27/2025 10:17 AM [...] 04/27/2025 11:27 AM CDT WEOB: pt of [place] POCT URINALYSIS (CLINITEK) Routine 04/19/2025 5:11 PM CDT OB FOLLOW UP Schedule Routine, Read Routine (OP Routine) 04/01/2025 2:51 PM CDT Obesity in URINE CULTURE Routine 03/16/2025 2:20 PM CDT Gross hematuria care, first in third trimester HEPATITIS C ANTIBODY Routine 11/17/2024 3:58 PM BODY CLEANER care in first trimester PAP WITH REFLEX TO HIGH RISK HPV Routine 11/17/2024 9:31 AM BODY CLEANER Encounter for Papanicolaou smear for cervical cancer screening from Last 3 Months or Most Recently Relevant to Health Maintenance Results * POCT glucose (05/28/2025 6:39 AM CDT) Glucose, POC 82 70 - 199 mg/dL Blood 05/28/2025 6:39 AM CDT 05/28/2025 6:39 AM CDT us Marielle Wakefield MD LAB POCT ORDERABLES - DEVICE Final Result [facility] [place] [address] * HI AN PROCEDURE PLACEHOLDER (05/27/2025 10:17 AM CDT) Narrative Priti Girard MD - 05/27/2025 10:17 AM CDT Priti Girard MD 05/27/2025 10:18 AM Epidural Block Patient location: L&D Start time: 05/27/2025 10:09 AM End time: 05/27/2025 10:20 AM Reason for block: labor analgesia Staff: Supervising provider: Priti Girard MD Placed by: NURSING INSTRUCTOR: Candy Holly CRNA Procedure prep: Preprocedure checklist: [...] NP LAB BLOOD ORDERABL ES Final Result [facility] Department [place] [address] * Differential, auto (05/26/2025 5:51 PM CDT) Pathologist [facility] Neutrophil abs 5.42 1.50 - 6.50 K/cumm Imm gran abs 0.04 0.00 - 0.10 K/cumm [facility] Lymphocyte abs 1.07 0.80 - 3.30 K/cumm [facility] Monocyte abs 0.51 0.20 - 0.80 K/cumm [facility] Eosinophil abs 0.05 0.00 - 0.50 K/cumm [facility] Basophil abs 0.02 0.00 - 0.10 K/cumm [facility] Neutrophil pct 76.2 % [facility] Comment: Interpretive Data Percent cell count reference ranges are not reported, since discordance with absolute values may lead to misinterpretation of CBC data. Current Interpretive Data was last revised on 2018. Imm gran pct 0.6 % [facility] Comment: Interpretive Data Percent cell count reference ranges are not reported, since discordance with absolute values may lead to misinterpretation of CBC data. Current Interpretive Data was last revised on 2018. Lymphocyte pct 15.0 % [facility] Comment: Interpretive Data Percent cell count reference ranges are not reported, since discordance with absolute values may lead to misinterpretation of CBC data. Current Interpretive Data was last revised on 2018. Monocyte pct 7.2 % [facility] Comment: Interpretive Data Percent cell count reference ranges are not reported, since discordance with absolute values may lead to misinterpretation of CBC data. Current Interpretive Data was last revised on 2018. Eosinophil pct 0.7 % [facility] Comment: Interpretive Data Percent cell count reference ranges are not reported, since discordance with absolute values may lead to misinterpretation of CBC data. Current Interpretive Data was last revised on 2018. Basophil pct 0.3 % [facility] Comment: Interpretive Data Percent cell count reference ranges are not reported, since discordance with absolute values may lead to misinterpretation of CBC data. Current Interpretive Data was last revised on 2018. Blood 05/26/2025 5:51 PM CDT 05/26/2025 5:59 PM CDT Nickie Leyva NP LAB BLOOD ORDERABL ES Final Result [facility] Department [place] [address] * CBC with auto differential (05/26/2025 5:51 PM CDT) WBC 7.11 3.80 - 9.90 K/cumm Hgb 13.1 11.9 - 15.5 g/dL [facility] Hct 39.3 35.6 - 45.5 % [facility] Plt 191 150 - 400 K/cumm [facility] MPV 10.5 9.1 - 12.3 fL [facility] RBC 4.72 3.90 - 5.20 M/cumm [facility] MCV 83.3 81.3 - 96.4 fL [facility] MCH 27.8 27.1 - 33.3 pg [facility] MCHC 33.3 32.3 - 35.7 g/dL [facility] RDW CV 14.7 11.1 - 14.9 % [facility] RDW SD 44.6 35.7 - 48.1 fL [facility] NRBC abs 0.00 0.00 - 0.01 K/cumm [facility] Blood 05/26/2025 5:51 PM CDT 05/26/2025 5:59 PM CDT Nickie Leyva NP LAB BLOOD ORDERABL ES Final Result Performing Organization Address City/[facility]/ZIP Co de Phone Number [facility] [place] [address] * RPR Blood (05/26/2025 5:51 PM CDT) [facility] RPR Nonreactive Nonreactive Blood 05/26/2025 5:51 PM CDT 05/26/2025 5:59 PM CDT Nickie Leyva NP LAB MICROBIOLOGY - GENERAL ORDERABLES Final Result Performing Organization Address City/State/[facility] [place] [address] * Type and screen (05/26/2025 5:51 PM CDT) [facility] Juanjo, indirect Negative ABO Rh O Positive [facility] Blood 05/26/2025 5:51 PM CDT 05/26/2025 6:18 PM CDT Narrative [facility] - 05/26/2025 7:11 PM CDT Has the patient had Daratumumab or Isatuximab in the past 6 months?->Unknown Nickie Leyva NP LAB BLOOD BANK CARLOS A T ORDERABLES Final Result Performing Organization Address City/[facility] Co de Phone Number [facility] [place] [address] * (ABNORMAL) Comprehensive metabolic panel (05/26/2025 5:51 PM CDT) [facility] Sodium 131(L) 135 - 145 mmol/L Potassium, pl 3.7 3.3 - 4.9 mmol/L [facility] Chloride 102 97 - 110 mmol/L [facility] CO2 22 22 - 32 mmol/L [facility] Anion gap 7 2 - 15 mmol/L [facility] BUN 9 6 - 25 mg/dL [facility] Creatinine 0.62 0.60 - 1.10 mg/dL [facility] Glucose 113 70 - 199 mg/dL [facility] Comment: Interpretive Data Fasting glucose [...] 2022. Calcium 9.6 8.5 - 10.3 mg/dL [facility] Bilirubin, total 0.2 0.1 - 1.2 mg/dL [facility] Protein, pl 6.6 6.5 - 8.5 g/dL [facility] Albumin 3.4(L) 3.5 - 5.0 g/dL [facility] Alk phos 239(H) 40 - 130 Units/L [facility] ALT 9 7 - 45 Units/L [facility] AST 18 10 - 45 Units/L [facility] Blood 05/26/2025 5:51 PM CDT 05/26/2025 5:59 PM CDT Nickie Leyva NP LAB BLOOD ORDERABL ES Final Result [facility] Department [place] [address] * (ABNORMAL) POCT urinalysis (Clinitek) (05/26/2025 2:10 PM CDT) Color, ur, POC Yellow Yellow Clarity, UA, POC Clear Clear [facility] Glucose, ur, POC Negative Negative [facility] Bilirubin, ur, POC Negative Negative [facility] Ketones, ur, POC Negative Negative [facility] Specific gravity, ur, POC 1.015 1.010 - 1.025 [facility] Blood, ur, POC Trace(A) Negative [facility] pH, ur, POC 7.0 [facility] Comment: Interpretive Data Urine pH is affected by diet, medications, systemic acid-base disturbances, and renal tubular function. pH may affect urinary stone formation. For example, urine pH below 6.0 may help reduce the tendency for calcium phosphate stones and pH greater than 6.0 may reduce the tendency for uric acid stone formation. Source: [facility] [employer]. Last Revised Date: 12-06-2017 Protein, ur, POC Negative Negative [facility] Urobilinogen, ur, POC 0.2 mg/dL mg/dL [facility] Nitrites, ur, POC Negative Negative [facility] Leukocyte esterase, ur, POC Trace(A) Negative [facility] Urine 05/26/2025 2:10 PM CDT 05/26/2025 2:10 PM CDT us Marielle Wakefield MD LAB POCT ORDERABLES - DEVICE Final Result [facility] Department [place] [address] * US Ob Follow Up (04/28/2025 10:05 [...] current clinical standards) Organism (CLINICALLY INSIGNIFICANT GROWTH [facility] Urine, clean voided 04/27/2025 10:38 PM CDT 04/27/2025 10:45 PM CDT Narrative [facility] - 04/29/2025 11:00 AM CDT Indications for Culture:-> patient Testing performed by [facility] Microbiology Laboratory ([phone]) us Nhoemi Valentin MD LAB MICROBIOLOGY - GENERAL ORDERABLES Final Result [facility] Department [place] [address] * Check Sample (04/27/2025 10:26 PM CDT) ABO Rh O Positive [facility] OTHER 04/27/2025 10:2 6 PM CDT 04/27/2025 10:52 PM CDT Luz Vivar MD LAB BLOOD ORDERABLES Nannette l Result Performing Organization Address City/[facility]/ZIP Co de Phone Number [facility] Department [place] [address] [facility] * (ABNORMAL) Urinalysis reflex to microscopic and culture Urine, clean voided (04/27/2025 8:55 PM CDT) Color, ur Straw Yellow Clarity, ur Clear Clear [facility] Specific gravity, ur 1.015 1.003 - 1.030 [facility] pH, urine 6.5 [facility] Comment: Interpretive Data U rine pH is affected by diet, medications, systemic acid-base disturbances, and renal tubular function. pH may affect urinary stone formation. For example, urine pH below 6.0 may help reduce the tendency for calcium phosphate stones and pH greater than 6.0 may reduce the tendency for uric acid stone formation. Source: [facility] [employer] Current Interpretive Data was last revised on 2017 Protein, ur ql Negative Negative [facility] Glucose, ur ql Negative Negative [facility] Ketones, ur 2+(A) Negative [facility] Bilirubin, ur Negative Negative [facility] Blood, ur Negative Negative [facility] Urobilinogen, ur <2.0 <2.0 mg/dL [facility] Nitrite, ur Negative Negative [facility] Leukocyte esterase, ur Negative Negative [facility] Urine, clean voided 04/27/2025 8:55 PM CDT 04/27/2025 9:08 PM CDT Luz Vivar MD LAB MICROBIOLOGY - GENERA L ORDERABLES Final Result Performing Organization Address City/[facility] Co de Phone Number [facility] [place] [address] * HIV 1/2 Antibody plus p24 Antigen Blood (04/27/2025 8:44 PM CDT) Pathologist [facility] HIV 1/2 ab + p24 ag Nonreactive [...] L ORDERABLES Final Result Performing Organization Address City/[facility]/ZIP Co de Phone Number [facility] [place] [address] * RPR Blood (04/27/2025 8:44 PM CDT) RPR Nonreactive Nonreactive Blood 04/27/2025 8:44 PM CDT 04/27/2025 8:55 PM CDT Luz Vivar MD LAB MICROBIOLOGY - GENERA L ORDERABLES Final Result Performing Organization Address City/[facility]/ZIP Co de Phone Number [facility] Department [place] [address] * CBC without differential (04/27/2025 8:44 PM CDT) WBC 8.59 3.80 - 9.90 K/cumm Hgb 12.4 11.9 - 15.5 g/dL [facility] Hct 35.6 35.6 - 45.5 % [facility] Plt 179 150 - 400 K/cumm [facility] MPV 10.3 9.1 - 12.3 fL [facility] RBC 4.33 3.90 - 5.20 M/cumm [facility] MCV 82.2 81.3 - 96.4 fL [facility] MCH 28.6 27.1 - 33.3 pg [facility] MCHC 34.8 32.3 - 35.7 g/dL [facility] RDW CV 13.8 11.1 - 14.9 % [facility] RDW SD 41.1 35.7 - 48.1 fL [facility] NRBC abs 0.00 0.00 - 0.01 K/cumm [facility] Blood 04/27/2025 8:44 PM CDT 04/27/2025 8:55 PM CDT Uma Carrington NP LAB BLOOD ORDERABLES Final Result [facility] Department [place] [address] * Type and screen (04/27/2025 8:44 PM CDT) Pathologist [facility] Juanjo, indirect Negative ABO Rh O Positive [facility] Blood 04/27/2025 8:44 PM CDT 04/27/2025 9:15 PM CDT Narrative [facility] - 04/27/2025 11:04 PM CDT Has the patient had Daratumumab or Isatuximab in the past 6 months?->Unknown Luz Vivar MD LAB BLOOD BANK TEST ORDER MAY Final Result Performing Organization Address City/[facility]/ZIP Co de Phone Number [facility] Department [place] [address] * (ABNORMAL) POCT urinalysis (Clinitek) (04/27/2025 1:39 PM CDT) Color, ur, POC Yellow Yellow Clarity, UA, POC Clear Clear [facility] Glucose, ur, POC Negative Negative [facility] Bilirubin, ur, POC Negative Negative [facility] Ketones, ur, POC Negative Negative [facility] Specific gravity, ur, POC 1.010 1.010 - 1.025 [facility] Blood, ur, POC Trace(A) Negative [facility] pH, ur, POC 7.0 [facility] Comment: Interpretive Data Urine pH is affected by diet, medications, systemic acid-base disturbances, and renal tubular function. pH may affect urinary stone formation. For example, urine pH below 6.0 may help reduce the tendency for calcium phosphate stones and pH greater than 6.0 may reduce the tendency for uric acid stone formation. Source: [facility] [employer]. Last Revised Date: 12-06-2017 Protein, ur, POC Negative Negative [facility] Urobilinogen, ur, POC 0.2 mg/dL mg/dL [facility] Nitrites, ur, POC Negative Negative [facility] Leukocyte esterase, ur, POC 1+(A) Negative [facility] Urine 04/27/2025 1:39 PM CDT 04/27/2025 1:39 PM CDT Luz Vivar MD LAB POCT ORDERABLES - DEV ICE Final Result Performing Organization Address [facility]/ZIP Co de Phone Number [facility] Department [place] [address] * Group B streptococcal culture Vaginal/Rectal (04/27/2025 11:27 AM CDT) Report Final Report: Negative Vaginal/Rectal 04/27/2025 11 :27 AM CDT 04/27/2025 4:37 PM CDT Narrative [facility] - 04/30/2025 12:31 PM CDT Testing performed by [facility] Microbiology Laboratory ([phone]). us Luz Vivar MD LAB MICROBIOLOGY - GENERA L ORDERABLES Final Result [facility] Department [place] [address] * (ABNORMAL) POCT urinalysis (Clinitek) (04/19/2025 5:11 PM CDT) Color, ur, POC Yellow Yellow Clarity, UA, POC Clear Clear [facility] Glucose, ur, POC Negative Negative [facility] Bilirubin, ur, POC Negative Negative [facility] Ketones, ur, POC 3+(A) Negative [facility] Specific gravity, ur, POC 1.020 1.010 - 1.025 [facility] Blood, ur, POC Negative Negative [facility] pH, ur, POC 7.0 [facility] Comment: Interpretive Data Urine pH is affected by diet, medications, systemic acid-base disturbances, and renal tubular function. pH may affect urinary stone formation. For example, urine pH below 6.0 may help reduce the tendency for calcium phosphate stones and pH greater than 6.0 may reduce the tendency for uric acid stone formation. Source: [employer]. Last Revised Date: 12-06-2017 Protein, ur, POC Negative Negative [facility] Urobilinogen, ur, POC 0.2 mg/dL mg/dL [facility] Nitrites, ur, POC Negative Negative [facility] Leukocyte esterase, ur, POC 1+(A) Negative [facility] Urine 04/19/2025 5:11 PM CDT 04/19/2025 5:11 PM CDT us Charisse Eisenberg MD LAB POCT ORDERABLES - ANGEL CE Final Result Performing Organization Address City/[facility]/ZIP Co de Phone Number [facility] Department [place] [address] * US Ob Follow Up (04/01/2025 2:51 [...] current clinical standards) Organism (CLINICALLY INSIGNIFICANT GROWTH [facility] Urine, clean voided 03/16/2025 2:20 PM CDT 03/16/2025 2:43 PM CDT N[facility]ative [facility] - 03/17/2025 5:12 PM CDT Testing performed by [facility] Microbiology Laboratory ([phone]) us Stefanie Bai NP LAB MICROBIOLOGY - GENERAL O RDERABLES Final Result Performing Organization Address City/[facility]/ZIP Co de Phone Number [facility] [place] [address] * Hepatitis C antibody Blood (11/17/2024 3:58 PM BODY CLEANER) Hep C Ab Nonreactive Nonreactive Comment:Antibodies to HCV no t detected. Does NOT exclude the possibility of recent exposure to HCV. Current interpretive data was last revised on 22 Blood 11/17/2024 3:58 PM BODY CLEANER 11/17/2024 6:41 PM BODY CLEANER us Stefanie Bai NP LAB MICROBIOLOGY - GENERAL O RDERABLES Final Result [facility] [place] [address] * Pap with reflex to High Risk HPV and Genotyping (Cytology Component) (11/17/2024 9:31 AM BODY CLEANER) Thin prep (Pap test) 11/17/2024 9:31 AM BODY CLEANER 11/18/2024 9:31 AM BODY CLEANER Narrative PATHOLOGY [facility] - 11/21/2024 9:25 AM BODY CLEANER [facility] Department of Pathology [address] [place] [id number] Final Report Note to Patients: This [...] the details. Patient Name: ANABELLE GRIJALVA Address: [address] [place] [address], [place] [address] Gender: F : 1995 (Age: 29) Service: Location: [facility] #: [id number] Patient Type: SPECIMEN Taken: 11/17/2024 Received: 11/18/2024 Accessioned:: 11/18/2024 Reported: 11/21/2024 Physician(s): Stefanie Bai RN, COUNTER SALES REPRESENTATIVE Stefanie Bai RN, COUNTER SALES REPRESENTATIVE Diagnosis: SOURCE OF SPECIMEN Imaged Thinprep Pap Test w/ Reflex HPV - Wire Repairer Cytologic Material: STATEMENT OF ADEQUACY - Specimen satisfactory for interpretation; endocervical/transformation zone component absent or insufficient GENERAL CATEGORIZATION: - Negative for intraepithelial lesion or malignancy CRISTI Hebert(ASCP) Report Electronically Reviewed and Signed Out By CRISTI Hebert(ASCP) 11/21/2024 09:25:22Specimen(s) Received: A: Imaged Thinprep Pap Test w/ Reflex HPV - Wire Repairer Cytologic Material Clinical History: Last Menstrual Period: [...] determined by the Surgical Pathology Department at [facility] as part of an ongoing dairy quality assurance officer program and in compliance with federally mandated [...] characteristics determined by the Surgical Pathology Department [facility]. It has not been cleared or approved by the U. S. Food and Drug Administration. Stefanie Bai NP LAB CYTOLOGY ORDERABLES Nannette arabella Result Performing Organization Address City/State/[facility] Co de Phone Number PATHOLOGY [address] [place] [address] from Last 3 Months or Most Recently Relevant to Health Maintenance Insurance [facility] Advance Directives For more information, please contact: [phone] * Full Code (Latest Code Status on File) Date Activated Date Inactivated Comments 05/27/2025 6:02 PM 05/29/2025 11:15 PM * Full Code Date Activated Date Inactivated Comments 05/26/2025 5:44 PM 05/27/2025 6:02 PM Full CPR in ca se of cardiopulmonary arrest * Full Code Date Activated Date Inactivated Comments 04/27/2025 4:43 PM 04/29/2025 12:20 AM Care Teams Rubber Heel And Sole Press Tender Relationship Specialty Start Date End Date Mylene Hanna DO [address] [place] [address] [address] PCP - General Family Medicine 01/19/25 No, Physician 09/29/24
--- OUTSIDE RECORDS SUMMARY | 2025-05-30 00:15 | XMS_ITS | Encounter Summary ---
Author Organization [facility] Healthcare Address [address] [place] [address] Care Team Providers Care Shipping And Receiving Name Role Phone No, Physician Unavailable Mylene Hanna DO Primary Care Provider + Reason for Visit * Auth/Cert (Routine) Specialty Diagnoses / Procedures Referred By Contac t Referred To Contact Diagnoses Uterine contractions Procedures NA Referral ID Status Reason Start Date Expiration Date Visits Re quested Visits Authorized [id number] 1 1 Encounter Details Date Type Department Care Team (Late st Contact Info) Description 05/26/2025 2:01 PM CDT - 05/29/2025 7:05 PM CDT Hospital Encounter [address] [id number] Marielle Wakefield MD [facility] [address] Con[place]lin [address] [address] Normal labor (Primary Dx); Obesity in ; care insufficient, unspecified trimester; Maternal varicella, non-immune Discharge Disposition: Discharge to home or self care Social History Tobacco Use Types Packs/Day Years Used Date Smoking Tobacco: Never [email or web address] Utilities Answer Date Recorded In the past [...] often do you attend chur ch or sikhism services? Never 05/28/2025 Do you belong to any clubs o r organizations such as lutheran groups, unions, fraternal or athletic groups, or [...] things needed for daily living? No 05/28/2025 [place] Depression Scale Answer Date Recorded [place] Depression Scale Total 2 03/30/2025 The thought [...] any time in the past 12 m [facility], were you homeless or living in a nursing home (including now)? No 05/28/2025 Personal Safety Answer Date Recorded Have you ever been in or are you currently in a harmful physical or emotional relationship or is someone making you feel afraid or unsafe? 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 * If you have SEVERE illness [...] hours). Do NOT supplement unless instructed by Mattress Maker. Call your Mattress Maker if your baby has poor eating habits [...] call our centralized OB communication center at [phone]. Do not come to the hospital or clinic until you speak with a provider. Contact Information for your primary OB: [facility] - [address] [place] [address]. Call [phone] to schedule an appointment to be seen [...] right, call our OB communication center at [phone]. High blood pressure problems during & after [...] should call the doctor if you experience: custodial risks of preeclampsia If you had preeclampsia [...] enteric coated tablet 81 mg, oral, Daily 75-hdef-csbzyt 6-dha 30 mg iron-1mg -200 mg capsule Daily documented in this encounter Medications at Time of Discharge 21-jfsj-fqsfoi 6-dha 30 mg iron-1mg -200 mg capsule [...] Date/Time: 05/27/2025t 4:54 PM Delivery method: Vaginal [[id number]] Subjective Flatus: Yes Pain: Well controlled Diet: [...] PRN Medications benzocaine-menthoL calcium carbonate hydrocortisone ibuprofen btrfitu-gtyrw-nensuzk ondansetron ODT OR ondansetron varicella zoster Vitals: [...] Date/Time: 05/27/2025t 4:54 PM Delivery method: Vaginal [[id number]] Subjective Flatus: Yes Pain: Well controlled Diet: [...] PRN Medications benzocaine-menthoL calcium carbonate hydrocortisone ibuprofen hqzkdcf-fjadx-phslgcv ondansetron ODT OR ondansetron varicella zoster Vitals: [...] Lewis MD 05/28/25 R4 Attestation [facility]PD#1 from [facility]. Continue routine post care. Adwoa Lewis [...] oxytocin paused - will restart after recovery. 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 Verbalized understanding of [...] ,bonding w/ baby, appropriately caring for baby. Stone Dresser Patient Centered Goal for Treatment: Safe D/C [...] during the phase will improve: Collaborate with medical management specialist Goal: Ability to participate in self [...] Viverosor on APU admission (04/28/25). Medical History OB-CAMERA OPERATOR care has been established with [facility]. Pediatric follow-up to be scheduled prior to discharge. Medical insurance coverage is through [facility] Federal. Information Baby boy was born on 05/27/2024 at EGA 38.5 weeks and has been named Tommy. Delivery was Vaginal. [place] weighed 7lb 2.3. at delivery. will be breast fed. This is mother's first child. Social History Current address is [address] [place] [id number], where she lives with her . Currently [phone] (home) is the best phone number for future contact. MOB reports that her and their families will be a positive support for her. /Father of the baby, Scooter Chacon, can be reached at [phone]. FOB has been present and supportive at [...] and Family: Three times a week Attends [employer] Services: Never Active Member of Clubs or [...] needs should they arise. ERVIN Martínez, GARRICK [facility] Clinical [facility] * Note - [...] the Shift: Pain will be well controlled Assisted Patient Centered Goal for Treatment: healthy mom, [...] the Shift: Pain will be well controlled Stone Dresser Patient Centered Goal for Treatment: healthy mom, healthy baby Summary: * Plan of Care - Hue Sauceda RN - 05/27/2025 7:20 PM CDT Goals: Clinical Goals for the Shift: VSS pain control Assisted Patient Centered Goal for Treatment: healthy mom, [...] Griffith MD - 05/27/2025 6:14 PM CDT [facility] Vaginal Delivery Note Patient's Name: Anabelle Chacon : 1995 Attending: Hope Govea Assisting: Kassie Griffith MD Clinic: [facility] Primary Diagnoses: Elevated 1 hour glucose, normal [...] POCT ORDERABLES - DEVICE Final Result [facility] Department [place] [address] * eGFR (05/26/2025 5:51 PM CDT) eGFR [...] CDT 05/26/2025 5:59 PM CDT Nickie Leyva POWER SHOVEL OPERATOR LAB BLOOD ORDERABL ES Final Result [facility] [place] [address] * Differential, auto (05/26/2025 5:51 PM CDT) Pathologist [facility] Neutrophil abs 5.42 1.50 - 6.50 K/cumm Imm gran abs 0.04 0.00 - 0.10 K/cumm [facility] Lymphocyte abs 1.07 0.80 - 3.30 K/cumm [facility] Monocyte abs 0.51 0.20 - 0.80 K/cumm [facility] Eosinophil abs 0.05 0.00 - 0.50 K/cumm [facility] Basophil abs 0.02 0.00 - 0.10 K/cumm [facility] Neutrophil pct 76.2 % [facility] Comment: Interpretive Data Percent cell count reference ranges are not reported, since discordance with absolute values may lead to misinterpretation of CBC data. Current Interpretive Data was last revised on 2018. Imm gran pct 0.6 % [facility] Comment: Interpretive Data Percent cell count reference ranges are not reported, since discordance with absolute values may lead to misinterpretation of CBC data. Current Interpretive Data was last revised on 2018. Lymphocyte pct 15.0 % [facility] Comment: Interpretive Data Percent cell count reference ranges are not reported, since discordance with absolute values may lead to misinterpretation of CBC data. Current Interpretive Data was last revised on 2018. Monocyte pct 7.2 % [facility] Comment: Interpretive Data Percent cell count reference ranges are not reported, since discordance with absolute values may lead to misinterpretation of CBC data. Current Interpretive Data was last revised on 2018. Eosinophil pct 0.7 % [facility] Comment: Interpretive Data Percent cell count reference ranges are not reported, since discordance with absolute values may lead to misinterpretation of CBC data. Current Interpretive Data was last revised on 2018. Basophil pct 0.3 % [facility] Comment: Interpretive Data Percent cell count reference ranges are not reported, since discordance with absolute values may lead to misinterpretation of CBC data. Current Interpretive Data was last revised on 2018. Blood 05/26/2025 5:51 PM CDT 05/26/2025 5:59 PM CDT Nickie Leyva POWER SHOVEL OPERATOR LAB BLOOD ORDERABL ES Final Result [facility] [place] [address] * (ABNORMAL) Comprehensive metabolic panel (05/26/2025 5:51 PM CDT) Sodium 131(L) 135 - 145 mmol/L Potassium, pl 3.7 3.3 - 4.9 mmol/L [facility] Chloride 102 97 - 110 mmol/L [facility] CO2 22 22 - 32 mmol/L [facility] Anion gap 7 2 - 15 mmol/L [facility] BUN 9 6 - 25 mg/dL [facility] Creatinine 0.62 0.60 - 1.10 mg/dL [facility] Glucose 113 70 - 199 mg/dL [facility] Comment: Interpretive Data Fasting glucose >/= [...] 2022. Calcium 9.6 8.5 - 10.3 mg/dL [facility] Bilirubin, total 0.2 0.1 - 1.2 mg/dL [facility] Protein, pl 6.6 6.5 - 8.5 g/dL [facility] Albumin 3.4(L) 3.5 - 5.0 g/dL [facility] Alk phos 239(H) 40 - 130 Units/L [facility] ALT 9 7 - 45 Units/L [facility] AST 18 10 - 45 Units/L [facility] Blood 05/26/2025 5:51 PM CDT 05/26/2025 5:59 PM CDT Nickie Leyva NP LAB BLOOD ORDERABL ES Final Result [facility] [place] [address] * CBC with auto differential (05/26/2025 5:51 PM CDT) WBC 7.11 3.80 - 9.90 K/cumm Hgb 13.1 11.9 - 15.5 g/dL [facility] Hct 39.3 35.6 - 45.5 % [facility] Plt 191 150 - 400 K/cumm [facility] MPV 10.5 9.1 - 12.3 fL [facility] RBC 4.72 3.90 - 5.20 M/cumm [facility] MCV 83.3 81.3 - 96.4 fL [facility] MCH 27.8 27.1 - 33.3 pg [facility] MCHC 33.3 32.3 - 35.7 g/dL [facility] RDW CV 14.7 11.1 - 14.9 % [facility] RDW SD 44.6 35.7 - 48.1 fL [facility] NRBC abs 0.00 0.00 - 0.01 K/cumm [facility] Blood 05/26/2025 5:51 PM CDT 05/26/2025 5:59 PM CDT Nickie Leyva NP LAB BLOOD ORDERABL ES Final Result Performing Organization Address [facility] Co de Phone Number [facility] [place] [address] * Type and screen (05/26/2025 5:51 PM CDT) Juanjo, indirect Negative ABO Rh O Positive [facility] Blood 05/26/2025 5:51 PM CDT 05/26/2025 6:18 PM CDT Narrative [facility] - 05/26/2025 7:11 PM CDT Has the patient had Daratumumab or Isatuximab in the past 6 months?->Unknown Nickie Leyva NP LAB BLOOD BANK CARLOS A T ORDERABLES Final Result [facility] [place] [address] * RPR Blood (05/26/2025 5:51 PM CDT) RPR Nonreactive Nonreactive Blood 05/26/2025 5:51 PM CDT 05/26/2025 5:59 PM CDT Nickie Leyva NP LAB MICROBIOLOGY - GENERAL ORDERABLES Final Result Performing Organization Address [facility]/State/ZIP Co de Phone Number [facility]A JOHNSON [facility] [place] [address] * (ABNORMAL) POCT urinalysis (Clinitek) (05/26/2025 2:10 [...] CERNER BJ pH, ur, POC 7.0 [facility] Comment: Interpretive Data Urine pH is affected by diet, medications, systemic acid-base disturbances, and renal tubular function. pH may affect urinary stone formation. For example, urine pH below 6.0 may help reduce the tendency for calcium phosphate stones and pH greater than 6.0 may reduce the tendency for uric acid stone formation. Source: [facility] [employer]. Last Revised Date: 12-06-2017 Protein, ur, POC Negative Negative [facility] Urobilinogen, ur, POC 0.2 mg/dL mg/dL [facility] Nitrites, ur, POC Negative Negative [facility] Leukocyte esterase, ur, POC Trace(A) Negative [facility] Urine 05/26/2025 2:10 PM CDT 05/26/2025 2:10 PM CDT us Marielle Wakefield MD LAB POCT ORDERABLES - DEVICE Final Result Performing Organization Address [facility]/ZIP Co de Phone Number [facility] JOHNSON [facility] [place] [address] documented in this encounter Visit Diagnoses Diagnosis [...] CDT 334 milliunits/min 334 mL/hr PNV with veyaclp-njls-BM tablet 1 tablet 1 tablet, oral, Daily, [...] - Provider: Stephenie Cervantes, INES) PNV with denluqr-befj-NT tablet 1 tablet 1 tablet, oral, Daily, First dose on Sun05/27/25 at 1845, Begin when normal bowel activity resumes., Indications: Vitamin Deficiency Prevention 1844 (Given - Provider: Trisha Gtz, INES) 823 (Given - Provider: Savannah Nuno, INES) 105 (Given - Provider: Stephneie Cervantes RN) polyethylene glycol (MIRALAX) packet 17 [...] ml)1558 (New Syringe/Cartridge - Provider: Trisha Gtz, INES)1711 (Stopped (Dual Sign) - Provider: Trisha Gtz [...] Abreu RN)0400 (Rate/Dose Change - Provider: Anais Arbeu RN)0430 (Rate/Dose Change - Provider: Anais Abreu RN)0515 (Rate/Dose Change - Provider: Anais Abreu RN)0545 (Rate/Dose Change - Provider: Anais Abreu RN)0833 (Rate/Dose Change - Provider: Trisha Gtz RN)0915 (Rate/Dose Change - Provider: Trisha Gtz RN)1044 (Rate/Dose Change - Provider: Trisha Gtz RN - Comment: verbal order per , [facility])1317 (Stopped - Provider: Trisha Gtz [...] 05/26/2025 documented in this encounter Care Teams Shipping And Receiving Relationship Specialty Start Date End Date Mylene Hanna DO [address] [facility] [address] [place] [address] PCP - General Family Medicine 01/19/25 No, Physician 09/29/24 documented as of this encounter
--- OUTSIDE RECORDS SUMMARY | 2025-05-30 00:15 | XMS_ITS | Encounter Summary ---
Author Organization [facility] Healthcare Address [address] [place] [address] Care Team Providers Care Business Office Assistant Name Role Phone No, Physician Unavailable Mylene Hanna DO Primary Care Provider + Encounter Details Date Type Department Care Team (Late st Contact Info) Description 04/30/2025 Results Follow-Up [facility] [address] [facility] [address] [place] [id number] Luz Vivar MD [facility] [address] Con[place] [facility] [address] [place], [place] [id number] Group B streptococcal culture Vaginal/Rectal Social History Tobacco Use Types Packs/Day Years Used Date Smoking Tobacco: Never [facility] Stamp.itities Answer Date Recorded In the past 12 months has [employer] electric, gas, oil, or water company threatened [...] often do you attend chur ch or taoist services? Never 04/28/2025 Do you belong to any clubs o r organizations such as sabianism groups, unions, fraternal or athletic groups, or [...] things needed for daily living? No 04/28/2025 [place] Depression Scale Answer Date Recorded [place] Depression Scale Total 2 03/30/2025 The thought [...] any time in the past 12 m [facility], were you homeless or living in a nursing home (including now)? No 04/28/2025 Personal Safety Answer Date Recorded Have you ever been in or are you currently in a harmful physical or emotional relationship or is someone making you feel afraid or unsafe? 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
--- OUTSIDE RECORDS SUMMARY | 2025-05-30 00:15 | XMS_ITS | Clinical Summary ---
Author Organization [facility] [place] [address] [place] [address] Address [address] [place] [address] Care Team Providers Care Ice Skating Instructor Name Role Phone No, Physician Unavailable Mylene Hanna DO Primary Care Provider + Allergies No known active allergies Medications 87-bsgv-jbgikl 6-dha 30 mg iron-1mg -200 mg capsule [...] ABORH O Positive 11/17/2024 IDCOOMB Negative 11/17/2024 [id number] Nonreactive 11/17/2024 LABRPR Nonreactive 11/17/2024 RUBELIGG Reactive [...] at 24-28wks: Lab Results Component Value Date [id number] 154 (H) 02/16/2025 [id number] Nonreactive 02/16/2025 LABRPR Nonreactive 02/16/2025 [x] Rhogam (if Rh neg): not indicated [x] Childbirth classes discussed 3rd Trimester: [x] GBS: neg Counseling: [x] Flu Shot (Jul-January) given 10/20 [x] RSV Shot (32-36wks) - N/A [x] Tdap (27-36wks) 03/16 [x] Method of delivery: Anticipate vaginal delivery Encounters Date Type Department Care Team Description 05/27/2025 10:03 AM CDT Anesthesia Event [address] [phone] Priti Girard MD Spreen, Nancy J., IZA 05/26/2025 2:01 PM CDT - 05/29/2025 7:05 PM CDT Hospital Encounter [address] [phone] Marielle Wakefield MD Normal labor (Primary Dx); Obesity in ; care insufficient, unspecified trimester; Maternal varicella, non-immune Discharge Disposition: Discharge to home or self care 05/18/2025 10:00 AM CDT Office Visit [address] [phone] Stefanie Bai, LOMBARDI DEVELOPER WEOB: pt of [place] (Primary Dx) 05/11/2025 10:30 AM CDT Office Visit [address] [phone] Luz Veloz MD WEOB: pt of [place] (Primary Dx); WEOB: BMI 34 at IOB; 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; WEOB: Varicella nonimmune 04/30/2025 Results Follow-Up [address] [phone] Luz Veloz MD Group B streptococcal culture Vaginal/Rectal 04/28/2025 9:45 AM CDT Ancillary Procedure [facility] [address] [facility] [address] [place] [address] WEOB: BMI 34 at IOB 04/27/2025 4:50 PM CDT Ancillary Procedure [address] [phone] 04/27/2025 1:18 PM CDT - 04/28/2025 8:19 PM CDT Hospital Encounter [address] [phone] Luz Veloz MD Threatened labor, third trimester (Primary Dx) Discharge Disposition: Discharge to home or self care 04/27/2025 11:27 AM CDT - 04/27/2025 11:59 PM CDT Hospital Encounter [address] [address] WEOB: pt of [place] Discharge Disposition: Discharge to home or self care 04/27/2025 10:30 AM CDT Office Visit [address] [phone] Luz Veloz MD WEOB: pt of [place] (Primary Dx); WEOB: BMI 34 at IOB; 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; WEOB: Varicella nonimmune 04/19/2025 4:39 PM CDT - 04/19/2025 6:00 PM CDT Hospital Encounter [address] [phone] Charisse Eisenberg MD Discharge Disposition: Discharge to home or self care 04/15/[address] [phone] Luz Veloz MD 04/14/2025 10:00 AM CDT Office Visit [address] [phone] Stefanie Bai, LOMBARDI DEVELOPER WEOB: pt of [place] (Primary Dx) 04/03/2025 Results Follow-Up [facility] [address] [place] [phone] Luz Veloz MD Ob Follow Up 04/01/2025 2:30 PM CDT Ancillary Procedure [facility] at [address] [phone] Obesity in 03/30/2025 4:00 PM CDT Office Visit [facility] [address] [place] [phone] Luz Veloz MD WEOB: pt of [place] (Primary Dx); WEOB: BMI 34 at IOB; 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; WEOB: Varicella nonimmune 03/27/2025 Telephone [facility] [address] [place] [phone] Kaela Oneal RN 03/25/2025 Orders Only [facility] [address] [place] [phone] Luz Veloz MD Obesity in (Primary Dx) 03/25/2025 Orders Only [facility] [address] [place] [phone] Luz Veloz MD 03/18/2025 Results Follow-Up [facility] [address] [place] [phone] Stefanie Bai, LOMBARDI DEVELOPER Urine culture Urine, clean voided 03/16/2025 11:45 AM CDT - 03/16/2025 11:59 PM CDT Hospital Encounter [address] [address] Gross hematuria; care, first in third trimester Discharge Disposition: Discharge to home or self care 03/16/2025 10:30 AM CDT Office Visit [facility] [address] [place] [phone] Stefanie Bai, LOMBARDI DEVELOPER WEOB: pt of [place] (Primary Dx); WEOB: [...] Tobacco: Never Tobacco Cessation:Counseling Given: Not Answered [facility] Utilities Answer Date Recorded In the past 12 months has [place], gas, oil, or water [employer] threatened to shut off services in your [...] often do you attend chur ch or sikh services? Never 05/28/2025 Do you belong to any clubs o r organizations such as confucianism groups, unions, fraternal or athletic groups, or [...] things needed for daily living? No 05/28/2025 Imperial Depression Scale Answer Date Recorded Imperial Depression Scale Total 2 03/30/2025 The thought [...] any time in the past 12 m [facility], were you homeless or living in a chcf (including now)? No 05/28/2025 Personal Safety Answer Date Recorded Have you ever been in or are you currently in a harmful physical or emotional relationship or is someone making you feel afraid or unsafe? 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 Gender Identity Not on file Sexual Orientation [...] Viveros or Hope Govea MD Complications:None Delivery Location:[facility] Main C ampus ([facility] 58LD) Summary Episode Dates Number of Fetuses Estimated Date of Delivery 11/17/2024 - Present (05/30/2025) 1 06/05/2025 (set by Stefanie Bai, LOMBARDI DEVELOPER on 11/17/2024 based on Last Menstrual Period on 08/29/2024 (Exact Date)) Dating Summary Based On HAI GA Diff Last Menstrual Period on 08/29/2024 (Exact Date) 06/05/2025 Working Ultrasound on 11/17/2024 06/05/2025 Same GA:11w3d Alternate HAI Entry 06/05/2025 Same Comment:Date entered prior t o episode creation Overview and Plan :Aquino sex:Male Support person:Corrales yee Rudi [phone] Delivery Plans Post-Delivery Plans Deliver by GA (weeks):40 Feeding intenti ons:Breast Milk Planned delivery method:Vaginal Circumci allen requested:Provider Performed Planned delivery location:[facility] Planned control:[place] Male Planned anesthesia:Epidural Acceptable blood products:All Overview Baby boy Titan Peds: [facility] ([place], [place]) Vitals Pregravid Weight Height TWG (As of 05/30/2025) Pregrav id BMI 160 cm (5' 3) [...] Date/Time: 05/27/2025t 4:54 PM Delivery method: Vaginal [[id number]] Subjective Flatus: Yes Pain: Well controlled Diet: [...] PRN Medications benzocaine-menthoL calcium carbonate hydrocortisone ibuprofen pndjvpf-nryss-wxcjhtv ondansetron ODT OR ondansetron varicella zoster Vitals: [...] Griffith MD 05/29/25 R4 Attestation PPD#2 from [facility], recovering well. Meeting post milestones, [...] Date/Time: 05/27/2025t 4:54 PM Delivery method: Vaginal [[id number]] Subjective Flatus: Yes Pain: Well controlled Diet: [...] PRN Medications benzocaine-menthoL calcium carbonate hydrocortisone ibuprofen fodnrgl-alnju-cidkkmc ondansetron ODT OR ondansetron varicella zoster Vitals: [...] Lewis MD 05/28/25 R4 Attestation PPD#1 from [facility]. Continue routine post care. Adwoa [...] Montoya MD 05/27/2025 - 38w5d - Hope Govea MD OB Attending Note Continues to be [...] External monitor: reactive, 135 Uterine Activity: External [place]: and Frequency: Every 3-4 minutes Oxytocin at [...] GA:37w3d 05/18/2025 - 37w3d - Stefanie Bai, LOMBARDI DEVELOPER No concerns Continue to monitor for regular movement Sudden decrease must seek care Signs of labor reviewed, location of [facility] Seek care immediately for vaginal bleeding. LOF, [...] with the current plan. Luz Veloz MD [facility] [address] [place] [address] Progress Notes - Office Visi t - 05/11/2025 - GA:36w3d 05/11/2025 - 36w3d - Luz Veloz MD +FM, -VB/LOF/Ctx. Patient ok with IOL being scheduled 06/05, will reach out to schedulers. Labor precautions discussed. [facility] location discussed. Progress Notes - Hospital En counter - 04/28/2025 - GA:34w4d 04/28/2025 - - Nohemi Vazquez Chaplain Nohemi Rivas [facility] Spiritual Care Triage: [phone] 04/28/25 1100 Time Spent Start Time 1015 Stop Time 1030 Time Calculation (min) 15 min Patient Spiritual Assessment Spirituality Assessed Focus of Care Clinical Encounter Type Visited With Patient and family together Response Type Routine visit Routine Visit Introduction Reason for visit Support Outcomes and Progress Demonstrating care and respect Achieved Interventions Interventions Offer emotional support;Offer spiritual/sikh support 04/28/2025 - - Jillian Ortiz NP [...] % Max: 99 % FHR: NST reactive [place]: rare contractions Physical Exam General: No acute [...] % Max: 99 % FHR: NST reactive [place]: rare contractions Physical Exam General: No acute [...] personally examine the patient. Luz Veloz MD [facility] [address] [place], [place] [phone] 04/27/2025 - 34w3d - Rose Marie Roldan [...] Sex Type Anes PTL Lv 1 Current GLOBAL ANALYTICS HEAD History: Patient's last menstrual period was 08/29/2024 [...] : aspirin 81 mg enteric coated tablet 75-mvrd-dvrdrx 6-dha 30 mg iron-1mg -200 mg capsule [...] ABORH O Positive 11/17/2024 IDCOOMB Negative 11/17/2024 [id number] Nonreactive 02/16/2025 LABRPR Nonreactive 02/16/2025 RUBELIGG Reactive [...] day (~10 times per day). Went to [facility], was having sharp upper abdominal pain that was 7-8/10. Symptoms have improved since then. Did not have cervical exam then. SVE 02/17/-4, head low. Recommended patient present to [facility] for repeat exam, likely admission, BMZ, [employer]. [...] Sex Type Anes PTL Lv 1 Current GLOBAL ANALYTICS HEAD History: Patient's last menstrual period was 08/29/2024 [...] : aspirin 81 mg enteric coated tablet 31-uvqv-ifnrnx 6-dha 30 mg iron-1mg -200 mg capsule [...] ABORH O Positive 11/17/2024 IDCOOMB Negative 11/17/2024 [id number] Nonreactive 02/16/2025 LABRPR Nonreactive 02/16/2025 RUBELIGG Reactive [...] vaginal secretions Location and appropriate use of [facility] Patient portal messages are for non urgent concerns Cosigned by Luz Veloz MD at 04/14/2025 1:52 PM CDT Associated attestation - Luz Veloz MD - 04/14/2025 1:52 PM CDT Images from the original note were not included. I have reviewed Stefanie's note and agree with the current plan. Luz Veloz MD [facility] [address] [place] [phone] Progress Notes - Office Visi t [...] this weekend. She plans to deliver at [place] and is considering an epidural. Labor precautions discussed. 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 I have reviewed Stefanie's note and agree with the current plan. Luz Veloz MD [facility] [address] [place], [place] [phone] Progress Notes - Office Visi t - [...] provided with informational handout for high-protein snack. IFIED FORKLIFT OPERATOR Progress Notes - Clinical Glass pport - 01/15/2025 - GA:19w6d 01/15/2025 - 19w6d - Essence Alvarado CGC Genetic counseling consult Referring OB provider: Luz Veloz MD Ms. Grijalva was [facility] for genetic consultation to discuss her spinal [...] NIPT screening via the Panorama test by [employer]. Results were low risk for aneuploidy. Ms. [...] and known genetic conditions. Consanguinity and known [place] ancestry were both denied. The patient reported her ethnic background as . She reported her partner's ethnic background as . Discussion: Ms. Grijalva was counseled regarding spinal muscular atrophy (SMA). We reviewed the clinical features of SMA. She understands that there are different types of SMA with different ages of onset but that the common type has early onset with progression and in early learning teacher. Some types have an older age of [...] silent carriers. A specific SMN1 sequence variant, g.[id number]>[id number], is associated with silent carrier status. When this sequence variant is found in conjunction with two SMN1 gene copies, the individual has an increased risk of being a silent carrier. Ms. Grijalva's SMA carrier screen results show that she has two SMN1 copies with the g.85286Y>G sequence variant. Based on this result and her ethnicity, she has a 1:34 chance of being a silent (2+0) SMA carrier. Mr. Grijalva also has two SMN1 copies with the g.62723O>G sequence variant. Based on this result and [...] SMA is also detected by Screening in [place]. Plan: Ms. Grijalva declined amniocentesis. Recommendations and Further Testing: Ultrasound is recommended at 20 weeks gestation to evaluate growth and anatomy. Ms. Grijalva will follow up with her child's cafeteria manager regarding Screening results. These should be delivered to the cafeteria manager by 1-2 weeks after delivery. Thank you for the opportunity to participate in the care of Ms. Grijalva. If you need further information regarding this visit, please feel free to contact me at [phone]. Sincerely, Essence Alvarado MS, JD [facility] Certified genetic counselor Total time spent counselin minutes. IFIED FORKLIFT OPERATOR Progress Notes - Office Visi t - 12/29/2024 - GA:17w3d 12/29/2024 - 17w3d - Luz Veloz MD +FM (a little bit, 2-3 times every few days), -VB/LOF/Ctx. Having some trouble sleeping, declines doxylamine at this time. DrewLatasha's partner testing for SMA has still not come back, we will alert patient as soon as results are available. Anatomy US 01/21/25, reminded pt of appointment. IFIED FORKLIFT OPERATOR Progress Notes - Office Visi t - 12/16/2024 - GA:15w4d 12/16/2024 - 15w4d - Luz Veloz MD -FM (feeling some gas motions, wondering if it's movement), -VB/LOF/Ctx. Has had some mild cramping. Nausea has resolved. Anatomy US ordered, provided # for scheduling. Father testing for SMA carrier performed today. Urine culture ordered today. IFIED FORKLIFT OPERATOR Progress Notes - Office Visi t - 11/17/2024 - GA:11w3d 11/17/2024 - - Stefanie Bai NP The patient is here today for her initial OB visit with me. I reviewed her history in detail with her. She was given her [facility] Welcome bag and the contents were [...] symptoms of a miscarriage were reviewed. Reviewed vcnq-ldb-jqvlpyx options for nausea treatment and what to [...] Luz Veloz MD at 11/18/2024 4:05 PM CERTIFIED FORKLIFT OPERATOR IFIED FORKLIFT OPERATOR IFIED FORKLIFT OPERATOR Associated attestation - Luz Veloz MD - 11/18/2024 4:05 PM CERTIFIED FORKLIFT OPERATOR Images from the original note were not included. I have reviewed Stefanie's note and agree with the current plan. Luz Veloz MD [facility] [address] [place] [address] Last Filed Vital Signs Vital Sign Reading [...] DEVICE Routine 05/28/2025 6 :39 AM CDT [place] AN PROCEDURE PLACEHOLDER Routine 05/27/2025 10:17 AM [...] HEPATITIS C ANTIBODY Routine 11/17/2024 3:58 PM CERTIFIED FORKLIFT OPERATOR care in first trimester PAP WITH REFLEX TO HIGH RISK HPV Routine 11/17/2024 9:31 AM CERTIFIED FORKLIFT OPERATOR Encounter for Papanicolaou smear for cervical cancer screening from Last 3 Months or Most Recently Relevant to Health Maintenance Results * POCT glucose (05/28/2025 6:39 AM CDT) Glucose, POC 82 70 - 199 mg/dL Blood 05/28/2025 6:39 AM CDT 05/28/2025 6:39 AM CDT us Marielle Wakefield MD LAB POCT ORDERABLES - DEVICE Final Result [facility] Department [place] [address] * TN AN PROCEDURE PLACEHOLDER (05/27/2025 10:17 AM CDT) [...] LAB BLOOD ORDERABL ES Final Result [facility] [address] [facility] Department [place] [address] * Differential, auto (05/26/2025 5:51 [...] [facility] Neutrophil pct 76.2 % [facility] Comment: Interpretive Data Percent cell count reference ranges are not reported, since discordance with absolute values may lead to misinterpretation of CBC data. Current Interpretive Data was last revised on 2018. Imm gran pct 0.6 % [facility] Comment: Interpretive Data Percent cell count reference ranges are not reported, since discordance with absolute values may lead to misinterpretation of CBC data. Current Interpretive Data was last revised on 2018. Lymphocyte pct 15.0 % [facility] Comment: Interpretive Data Percent cell count reference ranges are not reported, since discordance with absolute values may lead to misinterpretation of CBC data. Current Interpretive Data was last revised on 2018. Monocyte pct 7.2 % [facility] Comment: Interpretive Data Percent cell count reference ranges are not reported, since discordance with absolute values may lead to misinterpretation of CBC data. Current Interpretive Data was last revised on 2018. Eosinophil pct 0.7 % [facility] Comment: Interpretive Data Percent cell count reference ranges are not reported, since discordance with absolute values may lead to misinterpretation of CBC data. Current Interpretive Data was last revised on 2018. Basophil pct 0.3 % [facility] Comment: Interpretive Data Percent cell count reference ranges are not reported, since discordance with absolute values may lead to misinterpretation of CBC data. Current Interpretive Data was last revised on 2018. Blood 05/26/2025 5:51 PM CDT 05/26/2025 5:59 PM CDT Nickie Leyva NP LAB BLOOD ORDERABL ES Final Result [facility] Department of [employer] [place] [address] * CBC with auto differential (05/26/2025 5:51 PM CDT) [facility] WBC 7.11 3.80 - 9.90 K/cumm Hgb 13.1 11.9 - 15.5 g/dL [facility] Hct 39.3 35.6 - 45.5 % [facility] Plt 191 150 - 400 K/cumm [facility] MPV 10.5 9.1 - 12.3 fL [facility] RBC 4.72 3.90 - 5.20 M/cumm [facility] MCV 83.3 81.3 - 96.4 fL [facility] MCH 27.8 27.1 - 33.3 pg [facility] MCHC 33.3 32.3 - 35.7 g/dL [facility] RDW CV 14.7 11.1 - 14.9 % [facility] RDW SD 44.6 35.7 - 48.1 fL [facility] NRBC abs 0.00 0.00 - 0.01 K/cumm [facility] Blood 05/26/2025 5:51 PM CDT 05/26/2025 5:59 PM CDT Nickie Leyva NP LAB BLOOD ORDERABL ES Final Result [facility] Department [place] [employer] [place] [address] * RPR Blood (05/26/2025 5:51 PM CDT) [facility] RPR Nonreactive Nonreactive Blood 05/26/2025 5:51 PM CDT 05/26/2025 5:59 PM CDT Nickie Leyva NP LAB MICROBIOLOGY - GENERAL ORDERABLES Final Result Performing Organization Address [facility] [place] [address] * Type and screen (05/26/2025 5:51 PM CDT) [facility] Juanjo, indirect Negative ABO Rh O Positive [facility] Blood 05/26/2025 5:51 PM CDT 05/26/2025 6:18 PM CDT Narrative [facility] - 05/26/2025 7:11 PM CDT Has the patient had Daratumumab or Isatuximab in the past 6 months?->Unknown Nickie Leyva NP LAB BLOOD BANK CARLOS A T ORDERABLES Final Result Performing Organization Address [facility] de Phone Number [facility] [place] [address] * (ABNORMAL) Comprehensive metabolic panel (05/26/2025 5:51 PM CDT) [facility] Sodium 131(L) 135 - 145 mmol/L Potassium, pl 3.7 3.3 - 4.9 mmol/L [facility] Chloride 102 97 - 110 mmol/L [facility] CO2 22 22 - 32 mmol/L [facility] Anion gap 7 2 - 15 mmol/L [facility] BUN 9 6 - 25 mg/dL [facility] Creatinine 0.62 0.60 - 1.10 mg/dL [facility] Glucose 113 70 - 199 mg/dL [facility] Comment: Interpretive Data Fasting glucose [...] 2022. Calcium 9.6 8.5 - 10.3 mg/dL [facility] Bilirubin, total 0.2 0.1 - 1.2 mg/dL [facility] Protein, pl 6.6 6.5 - 8.5 g/dL [facility] Albumin 3.4(L) 3.5 - 5.0 g/dL [facility] Alk phos 239(H) 40 - 130 Units/L [facility] ALT 9 7 - 45 Units/L [facility] AST 18 10 - 45 Units/L [facility] Blood 05/26/2025 5:51 PM CDT 05/26/2025 5:59 PM CDT Nickie Leyva NP LAB BLOOD ORDERABL ES Final Result [facility] Department [place] [address] * (ABNORMAL) POCT urinalysis (Clinitek) (05/26/2025 2:10 PM CDT) Color, ur, POC Yellow Yellow Clarity, UA, POC Clear Clear [facility] Glucose, ur, POC Negative Negative [facility] Bilirubin, ur, POC Negative Negative [facility] Ketones, ur, POC Negative Negative [facility] Specific gravity, ur, POC 1.015 1.010 - 1.025 [facility] Blood, ur, POC Trace(A) Negative [facility] pH, ur, POC 7.0 [facility] Comment: Interpretive Data Urine pH is affected by diet, medications, systemic acid-base disturbances, and renal tubular function. pH may affect urinary stone formation. For example, urine pH below 6.0 may help reduce the tendency for calcium phosphate stones and pH greater than 6.0 may reduce the tendency for uric acid stone formation. Source: [employer]. Last Revised Date: 12-06-2017 Protein, ur, POC Negative Negative [facility] Urobilinogen, ur, POC 0.2 mg/dL mg/dL [facility] Nitrites, ur, POC Negative Negative [facility] Leukocyte esterase, ur, POC Trace(A) Negative [facility] Urine 05/26/2025 2:10 PM CDT 05/26/2025 2:10 PM CDT Marielle Wakefield MD LAB POCT ORDERABLES - DEVICE Final Result [facility] Department [place] [address] * US Ob Follow Up (04/28/2025 10:05 [...] current clinical standards) Organism (CLINICALLY INSIGNIFICANT GROWTH [facility] Urine, clean voided 04/27/2025 10:38 PM CDT 04/27/2025 10:45 PM CDT Narrative [facility] - 04/29/2025 11:00 AM CDT Indications for Culture:-> patient Testing performed by [facility] Microbiology Laboratory ([phone]) us Nohemi Valentin MD LAB MICROBIOLOGY - GENERAL ORDERABLES Final Result Performing Organization Address City/[facility]/ZIP Co de Phone Number [facility] Department [place] [address] * Check Sample (04/27/2025 10:26 PM CDT) ABO Rh O Positive [facility] HCLL OTHER 04/27/2025 10:2 6 PM CDT 04/27/2025 10:52 PM CDT us Luz Veloz MD LAB BLOOD ORDERABLES Nannette l Result Performing Organization Address [facility] Co de Phone Number [facility] Department [place] [address] [facility] * (ABNORMAL) Urinalysis reflex to microscopic and culture Urine, clean voided (04/27/2025 8:55 PM CDT) Color, ur Straw Yellow Clarity, ur Clear Clear [facility] Specific gravity, ur 1.015 1.003 - 1.030 [facility] pH, urine 6.5 [facility] Comment: Interpretive Data U rine pH is affected by diet, medications, systemic acid-base disturbances, and renal tubular function. pH may affect urinary stone formation. For example, urine pH below 6.0 may help reduce the tendency for calcium phosphate stones and pH greater than 6.0 may reduce the tendency for uric acid stone formation. Source: [facility] [employer] Current Interpretive Data was last revised on 2017 Protein, ur ql Negative Negative [facility] Glucose, ur ql Negative Negative [facility] Ketones, ur 2+(A) Negative [facility] Bilirubin, ur Negative Negative [facility] Blood, ur Negative Negative [facility] Urobilinogen, ur <2.0 <2.0 mg/dL [facility] Nitrite, ur Negative Negative [facility] Leukocyte esterase, ur Negative Negative [facility] Urine, clean voided 04/27/2025 8:55 PM CDT 04/27/2025 9:08 PM CDT Luz Veloz MD LAB MICROBIOLOGY - GENERA L ORDERABLES Final Result Performing Organization Address [facility] de Phone Number [facility] [employer] [place] [address] * HIV 1/2 Antibody plus p24 Antigen Blood (04/27/2025 8:44 PM CDT) Pathologist [facility] [place] HIV 1/2 ab + p24 ag Nonreactive [...] L ORDERABLES Final Result Performing Organization Address [facility] de Phone Number [facility] [place] [address] * RPR Blood (04/27/2025 8:44 PM CDT) Pathologist [facility] RPR Nonreactive Nonreactive Blood 04/27/2025 8:44 PM CDT 04/27/2025 8:55 PM CDT Luz Veloz MD LAB MICROBIOLOGY - GENERA L ORDERABLES Final Result Performing Organization Address [facility] [place] [address] * CBC without differential (04/27/2025 8:44 PM CDT) Pathologist [facility] WBC 8.59 3.80 - 9.90 K/cumm Hgb 12.4 11.9 - 15.5 g/dL [facility] Hct 35.6 35.6 - 45.5 % [facility] Plt 179 150 - 400 K/cumm [facility] MPV 10.3 9.1 - 12.3 fL [facility] RBC 4.33 3.90 - 5.20 M/cumm [facility] MCV 82.2 81.3 - 96.4 fL [facility] MCH 28.6 27.1 - 33.3 pg [facility] MCHC 34.8 32.3 - 35.7 g/dL [facility] RDW CV 13.8 11.1 - 14.9 % [facility] RDW SD 41.1 35.7 - 48.1 fL [facility] NRBC abs 0.00 0.00 - 0.01 K/cumm [facility] Blood 04/27/2025 8:44 PM CDT 04/27/2025 8:55 PM CDT Uma Carrington NP LAB BLOOD ORDERABLES Final Result Performing Organization Address City/[facility]/ZIP Co de Phone Number [facility] [place] [address] * Type and screen (04/27/2025 8:44 PM CDT) Juanjo, indirect Negative ABO Rh O Positive [facility] Blood 04/27/2025 8:44 PM CDT 04/27/2025 9:15 PM CDT Narrative [facility] - 04/27/2025 11:04 PM CDT Has the patient had Daratumumab or Isatuximab in the past 6 months?->Unknown Luz Veloz MD LAB BLOOD BANK TEST ORDER MAY Final Result [facility] [employer] [place] [address] * (ABNORMAL) POCT urinalysis (Clinitek) (04/27/2025 1:39 PM CDT) Color, ur, POC Yellow Yellow Clarity, UA, POC Clear Clear [facility] Glucose, ur, POC Negative Negative [facility] Bilirubin, ur, POC Negative Negative [facility] Ketones, ur, POC Negative Negative [facility] Specific gravity, ur, POC 1.010 1.010 - 1.025 [facility] Blood, ur, POC Trace(A) Negative [facility] pH, ur, POC 7.0 [facility] Comment: Interpretive Data Urine pH is affected by diet, medications, systemic acid-base disturbances, and renal tubular function. pH may affect urinary stone formation. For example, urine pH below 6.0 may help reduce the tendency for calcium phosphate stones and pH greater than 6.0 may reduce the tendency for uric acid stone formation. Source: [place] [employer]. Last Revised Date: 12-06-2017 Protein, ur, POC Negative Negative [facility] Urobilinogen, ur, POC 0.2 mg/dL mg/dL [facility] Nitrites, ur, POC Negative Negative [facility] Leukocyte esterase, ur, POC 1+(A) Negative [facility] Urine 04/27/2025 1:39 PM CDT 04/27/2025 1:39 PM CDT Luz Veloz MD LAB POCT ORDERABLES - DEV ICE Final Result [facility] Department [place] [address] * Group B streptococcal culture Vaginal/Rectal (04/27/2025 11:27 AM CDT) Report Final Report: Negative Vaginal/Rectal 04/27/2025 11 :27 AM CDT 04/27/2025 4:37 PM CDT Narrative [facility] - 04/30/2025 12:31 PM CDT Testing performed by [facility] Microbiology Laboratory ([phone]). us Luz Veloz MD LAB MICROBIOLOGY - GENERA L ORDERABLES Final Result [facility] Department [place] [address] * (ABNORMAL) POCT urinalysis (Clinitek) (04/19/2025 5:11 PM CDT) Color, ur, POC Yellow Yellow Clarity, UA, POC Clear Clear [facility] Glucose, ur, POC Negative Negative [facility] Bilirubin, ur, POC Negative Negative [facility] Ketones, ur, POC 3+(A) Negative [facility] Specific gravity, ur, POC 1.020 1.010 - 1.025 [facility] Blood, ur, POC Negative Negative [facility] pH, ur, POC 7.0 [facility] Comment: Interpretive Data Urine pH is affected by diet, medications, systemic acid-base disturbances, and renal tubular function. pH may affect urinary stone formation. For example, urine pH below 6.0 may help reduce the tendency for calcium phosphate stones and pH greater than 6.0 may reduce the tendency for uric acid stone formation. Source: [facility] [employer]. Last Revised Date: 12-06-2017 Protein, ur, POC Negative Negative [facility] Urobilinogen, ur, POC 0.2 mg/dL mg/dL [facility] Nitrites, ur, POC Negative Negative [facility] Leukocyte esterase, ur, POC 1+(A) Negative [facility] Urine 04/19/2025 5:11 PM CDT 04/19/2025 5:11 PM CDT us Charisse Eisenberg MD LAB POCT ORDERABLES - ANGEL CE Final Result Performing Organization Address City/[facility]/ZIP Co de Phone Number [facility] Department [place] [address] * US Ob Follow Up (04/01/2025 2:51 [...] current clinical standards) Organism (CLINICALLY INSIGNIFICANT GROWTH [facility] Urine, clean voided 03/16/2025 2:20 PM CDT 03/16/2025 2:43 PM CDT Narrative [facility] - 03/17/2025 5:12 PM CDT Testing performed by [facility] Microbiology Laboratory ([phone]) us Stefanie Bai NP LAB MICROBIOLOGY - GENERAL O RDERABLES Final Result [facility] Department [place] [address] * Hepatitis C antibody Blood (11/17/2024 3:58 PM CERTIFIED FORKLIFT OPERATOR) Hep C Ab Nonreactive Nonreactive Comment:Antibodies to HCV no t detected. Does NOT exclude the possibility of recent exposure to HCV. Current interpretive data was last revised on 22 Blood 11/17/2024 3:58 PM CERTIFIED FORKLIFT OPERATOR 11/17/2024 6:41 PM CERTIFIED FORKLIFT OPERATOR us Stefanie Bai LOMBARDI DEVELOPER LAB MICROBIOLOGY - GENERAL O RDERAJAMAL Final Result [facility] Department [place] [address] * Pap with reflex to High Risk HPV and Genotyping (Cytology Component) (11/17/2024 9:31 AM CERTIFIED FORKLIFT OPERATOR) Thin prep (Pap test) 11/17/2024 9:31 AM CERTIFIED FORKLIFT OPERATOR 11/18/2024 9:31 AM CERTIFIED FORKLIFT OPERATOR Narrative PATHOLOGY [facility] - 11/21/2024 9:25 AM CERTIFIED FORKLIFT OPERATOR [facility] Department of Pathology [address] [place], [place] [id number] Final Report Note to Patients: This report [...] the details. Patient Name: ANABELLE GRIJALVA [address]: [address] [place] [address] Gender: F : 1995 (Age: 29) Service: Location: N : [id number] [facility] #: [id number] Patient Type: SPECIMEN Taken: 11/17/2024 Received: 11/18/2024 Accessioned:: 11/18/2024 Reported: 11/21/2024 Physician(s): Stefanie Bai, RN, LOMBARDI DEVELOPER Stefanie Bai, RN, LOMBARDI DEVELOPER Diagnosis: SOURCE OF SPECIMEN Imaged Thinprep Pap Test w/ Reflex HPV - Patient Care Secretary Cytologic Material: STATEMENT OF ADEQUACY - Specimen satisfactory for interpretation; endocervical/transformation zone component absent or insufficient GENERAL CATEGORIZATION: - Negative for intraepithelial lesion or malignancy CRISTI Hebert(ASCP) Report Electronically Reviewed and Signed Out By CRISTI Hebert(ASCP) 11/21/2024 09:25:22Specimen(s) Received: A: Imaged Thinprep Pap Test w/ Reflex HPV - Patient Care Secretary Cytologic Material Clinical History: Last Menstrual Period: [...] by the Surgical Pathology Department at [facility] as part of an ongoing type disk quality control supervisor program and in compliance with federally [...] characteristics determined by the Surgical Pathology Department [facility]. It has not been cleared or approved by the U. S. Food and Drug Administration. Stefanie Bai NP LAB CYTOLOGY ORDERABLES Nannette bell Result PATHOLOGY [address] [place] [address] from Last 3 Months or Most Recently Relevant to Health Maintenance Insurance [employer] [facility] FEDERAL Advance Directives For more information, please contact: [phone] * Full Code (Latest Code Status on File) Date Activated Date Inactivated Comments 05/27/2025 6:02 PM 05/29/2025 11:15 PM * Full Code Date Activated Date Inactivated Comments 05/26/2025 5:44 PM 05/27/2025 6:02 PM Full CPR in ca se of cardiopulmonary arrest * Full Code Date Activated Date Inactivated Comments 04/27/2025 4:43 PM 04/29/2025 12:20 AM Care Teams Ice Skating Instructor Relationship Specialty Start Date End Date Mylene Hanna DO [facility] [address] [place] [id number] PCP - General Family Medicine 01/19/25 No, Physician 09/29/24
[2025-05-30] MEDS: SODIUM CHLORIDE 0.9% IV 1,000 ML 999 ML IV CONT (00:18)
[2025-05-30 00:22] VITALS: BP 124/65
[2025-05-30 00:23] LABS: Hematocrit 37.5 % (37.0-47.0); Hemoglobin 11.9 g/dL (12.0-15.0); Immature Granulocyte Percent A 0.6 % (0-0.5); Lymphocytes Absolute Auto 1.52 K/mm3 (0.9-3.2); Mean Corpuscular HGB Conc 31.7 g/dl (32-36); Mean Corpuscular Hemoglobin 27.7 pg (26-34); Mean Corpuscular Volume 87.4 fl (80-100); Nucleated Red Blood Cells Absolute Auto 0.000 K/mm3 (0.0-0.012); Nucleated Red Blood Cells Perc 0.0 % (0.0-0.2); Platelet Count Result 215 k/mm3 (150-375); Red Blood Count 4.29 M/mm3 (4.2-5.4); White Blood Count 8.6 K/mm3 (4.5-10.0)
--- NOTE | 2025-05-30 00:50 | PC.NURSE ---
Samples hemolyzed. Straight stick to L AC x2. Blood work obtained, sent to lab. Patient tolerated well.
[2025-05-30 01:03] LABS: Alanine Aminotransferase 17 U/L (6-35); Albumin Level 3.2 g/dL (3.5-5.1); Alkaline Phosphatase 155 U/L (38-126); Anion Gap 5 mmol/L (4-12); Aspartate Amino Transferase 35 U/L (14-36); Bilirubin,Total 0.2 mg/dL (0.2-1.3); Blood Urea Nitrogen 8 mg/dL (7-17); Calcium 9.0 mg/dL (8.4-10.2); Carbon Dioxide 22 mmol/L (22-30); Chloride 110 mmol/L (98-107); Estimated CRCL calculation 128 ml/min; Estimated Glomerular Filt Rate > 60; Glucose 95 mg/dL (65-110); Magnesium 1.6 mg/dL (1.6-2.3); Potassium 3.7 mmol/L (3.4-5.0); Sodium 137 mmol/L (137-145); Total Protein 6.2 g/dL (6.3-8.2)
[2025-05-30 01:28] VITALS: BP 124/77; PULSE 92; RESP 18; O2SAT 100
--- NOTE | 2025-05-30 01:55 | PC.NURSE ---
Patient ambulatory with steady gait to bathroom. Urine sample provided and sent to lab.
[2025-05-30 02:04] LABS: Add Urine Microscopic? YES; Appearance Urine Clear (Clear); Glucose Urine UA Negative (Negative); Leukocyte Esterase Ur 2+ LEU/UL (Negative); Nitrate Urine Negative (Negative); Non Pathogenic Casts 0-2; Specific Grav Ur 1.007 (1.001-1.035)
== END 2025-05-30 02:59 | disposition home or self-care (01) ==
PROVIDERS: Emergency Provider Student in an Organized Health Care Education/Training Program; PCP Family Medicine
DX: R55 Syncope and collapse (principal); E86.0 Dehydration; O99.893 Other specified diseases and conditions complicating puerperium
CPT/HCPCS: 36415; 71045; 80053; 81001; 83735; 85025; 87086; 93005; 96360; 99283; J7030